=== PATIENT | female | born 1935 | race Caucasian/White ===

== ENCOUNTER → 2018-04-15 | Outpatient (CLI) | END | disposition home or self-care (01) ==

== ENCOUNTER 2019-03-09 19:36 | Emergency (ER) | payer MEDICARE, OTHER ==
[~2019-03-09] VITALS: Ht 157.5 cm; Wt 69.7 kg
[~2019-03-09 19:36] MED LIST: AMLO-147 PO; ASPI-817 PO; ATOR20TA38 PO; HYDR-3498 PO; HYDR25TA6 PO; VALS320T2 PO
[2019-03-09 19:44] VITALS: Ht 157.5 cm; Wt 69.7 kg
[2019-03-09] MEDS ORDERED: SOD CHLORIDE 0.9% 1,000 ML IV STA (20:05)
[2019-03-09] MEDS ORDERED: ACETAMINOPHEN 500 MG TAB PO STA (23:00)
[2019-03-09 23:17] VITALS: BP 148/80; PULSE 77; RESP 20
--- NOTE | 2019-03-10 01:27 | ERD ---
ER Documentation Chief Complaint Chief Complaint generalized weakness,urinating more than usual,shaky,leg cramps; hx DM2,HTN HPI 84-year-old female with a history of diabetes and hypertension presenting with cramping in her calves that started this morning. It is worse with ambulation. She feels weak from the cramping. Per her granddaughter at bedside, she does have a history of cramping in her legs but never this severe. She recently went to [place] for her 's where it was very hot and she thinks she may have not been drinking much fluid. She recently came back yesterday. She states that she is urinating normally. She has no other associated symptoms. She does not have any swelling in her extremities. When she is laying down, she has no pain. ROS All systems reviewed and are negative except as per history of present illness. Medications Home Meds Active Scripts Hydrocodone Bit-Acetaminophen* ([place]*) 5-325 Mg Tab, 1 TAB PO Q6 PRN for PAIN, #7 TAB Prov:AYAN MEZA PA-C 05/26/16 Atorvastatin Calcium* (Atorvastatin Calcium*) 20 Mg Tab, 20 MG PO HS, #30 Prov:CATIE CARRILLO MD 08/29/14 Aspirin* (Aspirin* EC) 81 Mg Tabec, 81 MG PO DAILY, #30 Prov:CATIE CARRILLO MD 08/29/14 Reported Medications Amlodipine Besylate* (Amlodipine Besylate*) 10 Mg Tablet, 10 MG PO DAILY, TAB 08/25/14 Valsartan* (Diovan*) 320 Mg Tablet, 320 MG PO DAILY, TAB 08/25/14 Hydrochlorothiazide* (Hydrochlorothiazide*) 25 Mg Tab, 25 MG PO DAILY, TAB 08/25/14 Allergies Allergies: Coded Allergies: No Known Allergy (Unverified , 08/25/14) PMhx/Soc History of Surgery: Yes (Rene Cataract removal) Anesthesia Reaction: No Hx Neurological Disorder: No Hx Respiratory Disorders: No Hx Cardiac Disorders: Yes (HTN) Hx Psychiatric Problems: No Hx Miscellaneous Medical Probl: No Hx Alcohol Use: No Hx Substance Use: No Hx Tobacco Use: Yes Smoking Status: Current some day smoker FmHx Family History: diabetes Physical Exam Vitals Vital Signs Date Temp Pulse Resp B/P (MAP) Pulse Ox O2 O2 Flow FiO2 Time Delivery Rate 03/09/19 98.3 77 20 148/80 99 Room Air 23:17 (102) 03/09/19 80 19 161/69 99 Room Air 20:21 (99) 03/09/19 97.3 90 18 204/86 95 19:44 (125) Physical Exam Const: No acute distress, well-appearing, nontoxic Head: Atraumatic Eyes: Normal Conjunctiva ENT: Normal External Ears, Nose and Mouth. Neck: Full range of motion. No meningismus. Resp: Clear to auscultation bilaterally Cardio: Regular rate and rhythm, no murmurs. 2+ distal pulses in all 4 extremities Abd: Soft, non tender, non distended. Normal bowel sounds Skin: No petechiae or rashes Back: No midline or flank tenderness Ext: No cyanosis, or edema. No calf tenderness or cords. Negative Homans sign Neur: Awake and alert, normal speech, no facial asymmetry, strength intact in all 4 extremities Psych: Normal Mood and Affect Result Diagram: 03/09/19201103/09/192011 Results 24 hrs Laboratory Tests Test 03/09/19 19:59 03/09/19 20:08 03/09/19 20:12 Urine Color YELLOW Urine Clarity SLIGHTLY CLOUDY Urine pH 6.0 Urine Specific [place] 1.010 Urine Ketones NEGATIVE mg/dL Urine Nitrite NEGATIVE mg/dL Urine Bilirubin NEGATIVE mg/dL Urine Urobilinogen NEGATIVE mg/dL Urine Leukocyte Esterase NEGATIVE Mauro/ul Urine Microscopic RBC 1 /HPF Urine Microscopic WBC 3 /HPF Urine Squamous Epithelial Cells FEW /HPF Urine Bacteria FEW /HPF Urine Hemoglobin NEGATIVE mg/dL Urine Glucose NEGATIVE mg/dL Urine Total Protein NEGATIVE mg/dl Bedside Glucose 158 mg/dL White Blood Count 10.2 10^3/ul Red Blood Count 4.61 10^6/ul Hemoglobin 12.7 g/dl Hematocrit 40.0 % Mean Corpuscular Volume 86.8 fl Mean Corpuscular Hemoglobin 27.5 pg Mean Corpuscular 31.8 g/dl Hemoglobin Concent Red Cell Distribution Width 14.6 % Platelet Count 385 10^3/UL Mean Platelet Volume 9.4 fl Immature Granulocytes % 0.700 % Neutrophils % 68.2 % Lymphocytes % 20.4 % Monocytes % 7.9 % Eosinophils % 2.2 % Basophils % 0.6 % Nucleated Red Blood Cells % 0.0 /100WBC Immature Granulocytes # 0.070 10^3/ul Neutrophils # 7.0 10^3/ul Lymphocytes # 2.1 10^3/ul Monocytes # 0.8 10^3/ul Eosinophils # 0.2 10^3/ul Basophils # 0.1 10^3/ul Nucleated Red Blood Cells # 0.0 10^3/ul Sodium Level 141 mmol/L Potassium Level 4.4 mmol/L Chloride Level 99 mmol/L Carbon Dioxide Level 29 mmol/L Anion Gap 13 Blood Urea Nitrogen 21 mg/dl Creatinine 1.20 mg/dl Est Glomerular Filtrat mL/min Rate mL/min Glucose Level 182 mg/dl Calcium Level 9.9 mg/dl Total Bilirubin 0.3 mg/dl Direct Bilirubin 0.00 mg/dl Indirect Bilirubin 0.3 mg/dl Aspartate Amino 49 IU/L Transf (AST/SGOT) Alanine 22 IU/L Aminotransferase (ALT/SGPT) Alkaline Phosphatase 102 IU/L Troponin I < 0.012 ng/ml Total Protein 9.7 g/dl Albumin 4.6 g/dl Globulin 5.10 g/dl Albumin/Globulin Ratio 0.90 Lipase 275 U/L Current Medications Medications Dose Sig/Viktoriya Start Time Status Last (Trade) Ordered Route PRN Stop Time Admin Dose Reason Admin Sodium 1,000 ml @ Q1H STAT 03/09/19 DC 03/09/19 Chloride 1,000 mls/hr IV 20:05 20:16 03/09/19 21:04 1,000 mg ONCE STAT 03/09/19 DC 03/09/19 Acetaminophen PO 23:00 23:15 (Tylenol 03/09/19 23:01 Tab) Procedures/MDM EMERGENT LABS AND DIAGNOSTIC STUDIES: Lab Results above were reviewed and interpreted by me. CBC: no anemia or evidence of infection BMP: Mild BUN and creatinine elevation, increased from previous, may be secondary to dehydration versus renal insufficiency. No evidence of clinically significant electrolyte abnormality, acidosis,hypoglycemia, UA: no evidence of infection EKG: Rate/Rhythm: Normal sinus rhythm at 85 bpm QRS, ST, T-waves: No changes consistent w/ acute ischemia Impression: No evidence of ischemia or arrhythmia Radiology Results as interpreted by Radiology below were reviewed by Avril Sen MD: Chest x-ray shows no acute abnormalities. Lung nodule noted, discussed with granddaughter Initial Nursing notes reviewed. Previous Medical Records requested via the Electronic Health Record. EMERGENCY DEPARTMENT COURSE / MEDICAL DECISION MAKING: Patient is presenting with muscle cramping in her legs that are intermittent. She has no neurovascular deficits on exam. I do not suspect ischemic limb or DVT. Patient was given IV hydration with improvement of her symptoms. She was noted to have diarrhea here, but the patient's family states that she was taking magnesium supplements today for cramping, which is likely the cause of her diarrhea. I recommended appropriate hydration at home for the muscle cramps. Follow-up with PCP was recommended if she is not improving and she was encouraged to return to the ER for any worsening symptoms. Patient's blood pressure was elevated (>120/80) but appears stable without evidence of hypertensive emergency or urgency. The patient was counseled about the risks of hypertension and urged to pursue outpatient monitoring and therapy within a week with their primary care physician. Departure Diagnosis: Primary Impression: Leg cramps Condition: Stable Patient Instructions: Muscle Spasm LADAN SEN MD March 10, 2019 01:27
== END 2019-03-09 23:18 | disposition home or self-care (01) ==
LOC: E/R 19:36
DX: M79.605 Pain in left leg (principal); M79.604 Pain in right leg; I10 Essential (primary) hypertension; F17.210 Nicotine dependence, cigarettes, uncomplicated
CPT/HCPCS: 71045; 80053; 81001; 82962; 83690; 84484; 85025; 93005; 99285; J7030; 81003

== ENCOUNTER 2019-03-14 15:47 | Inpatient (IN) | payer MEDICARE, OTHER ==
[~2019-03-14] VITALS: Ht 157.5 cm; Wt 72.0 kg
[2019-03-14] MEDS ORDERED: ONDANSETRON 4 MG INJ IV PRN (19:30)
[2019-03-14] MEDS ORDERED: ACETAMINOPHEN 325 MG TAB PO PRN (19:30)
[2019-03-14 21:26] VITALS: BP 193/82; PULSE 82; RESP 18
[2019-03-14 21:45] VITALS: PULSE 84
[2019-03-14] MEDS ORDERED: LEVOFLOXACIN 500MG/D5W (PMX) 100 ML IVPB SCH (22:00)
--- NOTE | 2019-03-14 22:03 | ERD ---
ER Documentation Chief Complaint Chief Complaint SENT BY PCP FOR EVALUATION FOR TACHYCARDIA HPI Patient is a 83-year-old female with hypertension and diabetes who presents for admission. The patient was sent by Dr. Carrillo for tachycardia. He would like the patient admitted. The patient had palpitations as well. It is been going on for the past few days. She denies chest pain. She has been feeling worse at night and has lots of sweating. She has no cough. Primary doctor is Dr. Carrillo. Upon review of old medical records the patient has multiple visits for various complaints. ROS All systems reviewed and are negative except as per history of present illness. Medications Home Meds Active Scripts Hydrocodone Bit-Acetaminophen* ([place]*) 5-325 Mg Tab, 1 TAB PO Q6 PRN for PAIN, #7 TAB Prov:AYAN MEZA PA-C 05/26/16 Atorvastatin Calcium* (Atorvastatin Calcium*) 20 Mg Tab, 20 MG PO HS, #30 Prov:CATIE CARRILLO MD 08/29/14 Aspirin* (Aspirin* EC) 81 Mg Tabec, 81 MG PO DAILY, #30 Prov:CATIE CARRILLO MD 08/29/14 Reported Medications Amlodipine Besylate* (Amlodipine Besylate*) 10 Mg Tablet, 10 MG PO DAILY, TAB 08/25/14 Valsartan* (Diovan*) 320 Mg Tablet, 320 MG PO DAILY, TAB 08/25/14 Hydrochlorothiazide* (Hydrochlorothiazide*) 25 Mg Tab, 25 MG PO DAILY, TAB 08/25/14 Allergies Allergies: Coded Allergies: No Known Allergy (Unverified , 08/25/14) PMhx/Soc History of Surgery: Yes (Rene Cataract removal) Anesthesia Reaction: No Hx Neurological Disorder: No Hx Respiratory Disorders: No Hx Cardiac Disorders: Yes (HTN) Hx Psychiatric Problems: No Hx Miscellaneous Medical Probl: No Hx Alcohol Use: No Hx Substance Use: No Hx Tobacco Use: Yes Smoking Status: Former smoker FmHx Family History: No coronary disease Physical Exam Vitals Vital Signs Date Temp Pulse Resp B/P (MAP) Pulse Ox O2 O2 Flow FiO2 Time Delivery Rate 03/14/19 98.3 100 18 137/66 95 16:19 (89) Physical Exam Const: No acute distress Head: Atraumatic Eyes: Normal Conjunctiva ENT: Normal External Ears, Nose and Mouth. Neck: Full range of motion. No meningismus. Resp: Clear to auscultation bilaterally Cardio: Regular rate and rhythm, no murmurs Abd: Soft, non tender, non distended. Normal bowel sounds Skin: No petechiae or rashes Back: No midline or flank tenderness Ext: No cyanosis, or edema Neur: Awake and alert Psych: Normal Mood and Affect Result Diagram: 03/14/19195203/14/191952 Results 24 hrs Current Medications Medications Dose Sig/Viktoriya Start Time Status Last (Trade) Ordered Route PRN Stop Time Admin Dose Reason Admin Ondansetron 4 mg ER BRIDGE 03/14/19 HCl (Zofran PRN IV 19:30 Inj) NAUSEA/VOMITI 03/15/19 19:29 NG 650 mg ER BRIDGE 03/14/19 Acetaminophen PRN PO 19:30 (Tylenol .MILD PAIN 03/15/19 19:29 Tab) 1-3 OR TEMP Procedures/MDM EKG read by me: Rate/Rhythm: Regular rate and rhythm at a normal rate Intervals: Normal Impression: No evidence of ischemia or arrhythmia Chest x-ray read by radiology. Patient is an 83-year-old female with hypertension and diabetes who presents with palpitations and tachycardia. The patient will be admitted to a telemetry observation bed to the care of Dr. Carrillo. Laboratory studies and EKG and chest x-ray were done. At this point I doubt pneumonia, pneumothorax, pulmonary embolism, or aortic dissection. Departure Diagnosis: Primary Impression: Tachycardia Condition: Serious AMENA LYNNE MD March 14, 2019 22:03
[2019-03-14] MEDS: SOD CHLORIDE 0.45% 1,000 ML IV SCH (22:30)
[2019-03-14] MEDS ORDERED: GLUCAGON 1 MG INJ IM PRN (23:30)
[2019-03-14] MEDS ORDERED: DEXTROSE 50% 50 ML SYRINGE IV PRN ×2 (23:30)
[2019-03-14] MEDS ORDERED: GLUCOSE GEL 15 GRAM TUBE PO PRN ×2 (23:30)
[2019-03-14] MEDS ORDERED: GLUCOSE GEL 15 GRAM TUBE BUCCAL PRN (23:30)
[2019-03-14 23:33] VITALS: BP 159/67; PULSE 80; RESP 17
[2019-03-15] VITALS (11 sets, daily range): BP systolic 136–166; BP diastolic 64–71; PULSE 74–90; RESP 17–20
[2019-03-15] MEDS: ACCU-CHEK XX SCH ×4 (07:05→21:00)
[2019-03-15] MEDS: INSULIN ASPART [NOVOLOG] 3 ML PEN SC SCH ×2 (07:18→17:48)
[2019-03-15] MEDS: LOSARTAN 50 MG TAB PO SCH (08:41)
[2019-03-15] MEDS: ASPIRIN (EC) 81 MG TAB PO SCH (08:41)
[2019-03-15] MEDS: HYDROCHLOROTHIAZIDE 25 MG TAB PO SCH (08:42)
[2019-03-15] MEDS: AMLODIPINE 10 MG TAB PO SCH (08:43)
[2019-03-15] MEDS ORDERED: ENOXAPARIN 40 MG/0.4 ML SYG SC SCH (09:00)
[2019-03-15] MEDS: SOD CHLORIDE 0.45% 1,000 ML IV SCH (14:40)
--- NOTE | 2019-03-15 18:23 | HP ---
Date/Time of Note Date/Time of Note DATE: 03/15/19 TIME: 17:48 Assessment/Plan VTE Prophylaxis Risk [place] [facility] [place] risk: 5 SCD applied (from [facility] [place] No SCD contraindicated: other Pharmacological prophylaxis: other Pharm contraindication: other Lines/Catheters [facility]ter [facility] (from [facility]): Peripheral IV Urinary Cath still in place: No Assessment/Plan Assessment/Plan -Tachycardia- no chest pain at present -Palpitations, assess for cardiac arrhythmia. none at resent - admit to tele unit - cardiology consult- dr Jensen notified -admission orders done - Anemia - monitor CBC - Acute renal insufficiency - Nephrology consult - Dr Bri Alcocer notified -Former smoker - Reinforce smoking cessation - Hypertension - Dyslipidemia - Diabetes - uncontrolled - Hgb AIC am - Glycemic control - 1800 KIMBERLY, low Na, low cholesterol diet - Dietary consult - hospital educator consult -Lovenox for DVT Prophylaxis Patient is seen in collaboration with dr Carrillo/ [facility] staff Result Diagram: 03/15/19 0508 03/15/19 0508 Results 24hrs Laboratory Tests Test 03/14/19 19:53 03/15/19 01:13 03/15/19 05:08 03/15/19 07:03 White Blood Count 10.7 7.4 # Red Blood Count 4.48 4.28 Hemoglobin 12.3 11.8 L Hematocrit 39.4 37.3 Mean Corpuscular 87.9 87.1 Volume Mean Corpuscular 27.5 L 27.6 L Hemoglobin Mean Corpuscular 31.2 L 31.6 L Hemoglobin Concent Red Cell 14.6 H 14.5 Distribution Width Platelet Count 324 294 Mean Platelet Volume 9.6 9.7 Immature 0.400 0.300 Granulocytes % Neutrophils % 72.2 62.0 Lymphocytes % 18.3 26.5 Monocytes % 7.7 8.6 Eosinophils % 0.8 1.8 Basophils % 0.6 0.8 Nucleated Red Blood 0.0 0.0 Cells % Immature 0.040 H 0.020 Granulocytes # Neutrophils # 7.7 H 4.6 Lymphocytes # 2.0 2.0 Monocytes # 0.8 0.6 Eosinophils # 0.1 0.1 Basophils # 0.1 0.1 Nucleated Red Blood 0.0 0.0 Cells # Sodium Level 138 139 Potassium Level 5.1 4.6 Chloride Level 99 101 Carbon Dioxide Level 27 28 Anion Gap 12 10 Blood Urea Nitrogen 25 H 22 H Creatinine 1.21 H 1.21 H Est Glomerular Filtrat Rate mL/min Glucose Level 265 H 227 H Calcium Level 9.1 8.9 Magnesium Level 2.1 Troponin I < 0.012 < 0.012 < 0.012 Thyroid Stimulating 6.420 H Hormone (TSH) Free Thyroxine 1.46 Creatine Kinase 57 Creatine Kinase 1.4 Index Creatinine Kinase MB 0.81 (Mass) Bedside Glucose 234 H Test 03/15/19 07:29 03/15/19 11:57 03/15/19 17:40 Creatine Kinase 48 Creatine Kinase 1.5 Index Creatinine Kinase MB 0.73 (Mass) Troponin I < 0.012 Bedside Glucose 210 291 H HPI/ROS Admit Date/Time Admit Date/Time March 14, 2019 at 19:31 Hx of Present Illness HPI Patient is a 83-year-old female with hypertension and diabetes, smoker, was sent by Dr. Carrillo for tachycardia. Patient has c/o of palpitations as well. It is been going on for the past few days. Patient is seen on tele unit. In ER: - VS-temperature was 98.3, blood pressure 137/66, pulse 100, respiratory rate 18, sat 95%. - CBC- white count of 10.7, hemoglobin of 12.3 and platelet count of 324. - CHEM- Sodium of 138, potassium 5.1, creatinine 0.21, BUN 25, glucose 265. -Troponin was negative. 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 She denies chest pain/palpitations/ shortness of breath/headache/ cough/ abdominal pain /NVD. Denies any fall /injury/ recent travel/contact with any sick. Denies any right/lrft calf pain. Denies focal weakness/numbness. Patient is admitted under Dr Carrillo for further treatment and evaluation. ROS All systems reviewed and are negative except as per history of present illness. Medications Home Meds Active Scripts Hydrocodone Bit-Acetaminophen* ([place]*) 5-325 Mg Tab, 1 TAB PO Q6 PRN for PAIN, #7 TAB Prov:AYAN MEZA PA-C 05/26/16 Atorvastatin Calcium* (Atorvastatin Calcium*) 20 Mg Tab, 20 MG PO HS, #30 Prov:CATIE CARRILLO MD 08/29/14 Aspirin* (Aspirin* EC) 81 Mg Tabec, 81 MG PO DAILY, #30 Prov:CATIE CARRILLO MD 08/29/14 Reported Medications Amlodipine Besylate* (Amlodipine Besylate*) 10 Mg Tablet, 10 MG PO DAILY, TAB 08/25/14 Valsartan* (Diovan*) 320 Mg Tablet, 320 MG PO DAILY, TAB 08/25/14 Hydrochlorothiazide* (Hydrochlorothiazide*) 25 Mg Tab, 25 MG PO DAILY, TAB 08/25/14 Allergies Allergies: Coded Allergies: No Known Allergy (Unverified , 08/25/14) PMhx/Soc History of Surgery: Yes (Rene Cataract removal) Anesthesia Reaction: No Hx Neurological Disorder: No Hx Respiratory Disorders: No Hx Cardiac Disorders: Yes (HTN) Hx Psychiatric Problems: No Hx Miscellaneous Medical Probl: No Hx Alcohol Use: No Hx Substance Use: No Hx Tobacco Use: Yes Smoking Status: Former smoker FmHx Family History: No coronary disease ROS ENT: no complaints Respiratory: no complaints Cardiovascular: no complaints Gastrointestinal: no complaints Genitourinary: no complaints Musculoskeletal: no complaints PMH/Family/Social Past Medical History Medical History: diabetes, hypertension Medications Current Medications Amlodipine Besylate (Norvasc) 10 mg DAILY PO Last administered on 03/15/19at 08:43; Admin Dose 10 MG; Start 03/15/19 at 09:00 Aspirin (Halfprin) 81 mg DAILY PO Last administered on 03/15/19at 08:41; Admin Dose 81 MG; Start 03/15/19 at 09:00 Atorvastatin Calcium (Lipitor) 20 mg HS PO ; Start 03/15/19 at 21:00 Hydrochlorothiazide (Hydrochlorothiazide) 25 mg DAILY PO Last administered on 03/15/19at 08:42; Admin Dose 25 MG; Start 03/15/19 at 09:00 Losartan Potassium (Cozaar) 100 mg DAILY PO Last administered on 03/15/19at 08:41; Admin Dose 100 MG; Start 03/15/19 at 09:00 Sodium Chloride 1,000 ml @ 60 mls/hr [id number] IV Last administered on 03/14/19at 22:30; Admin Dose 60 MLS/HR; Start 03/14/19 at 22:00 Diagnostic Test (Pha) (Accu-Chek) 1 ea AC MEALS AND BEDTIME XX Last administered on 03/15/19at 07:05; Admin Dose 1 EA; Start 03/15/19 at 07:00 Insulin Aspart (Novolog Insulin Pen) 20 unit AC DINNER SC ; Start 03/15/19 at 17:30 Insulin Aspart (Novolog Insulin Pen) 24 unit AC BREAKFAST SC Last administered on 03/15/19at 07:18; Admin Dose 24 UNIT; Start 03/15/19 at 07:00 Insulin Glargine (Lantus) 58 units DAILY@2000 SC ; Start 03/15/19 at 20:00 Acetaminophen (Tylenol Tab) 650 mg Q4H PRN PO MILD PAIN(1-3)OR ELEVATED TEMP; Start 03/14/19 at 22:30 Miscellaneous Information 1 ea NOTE XX ; Start 03/14/19 at 23:30 Glucose (Glutose) 15 gm Q15M PRN PO DECREASED GLUCOSE; Start 03/14/19 at 23:30 Glucose (Glutose) 22.5 gm Q15M PRN PO DECREASED GLUCOSE; Start 03/14/19 at 23:30 Dextrose (D50w Syringe) 25 ml Q15M PRN IV DECREASED GLUCOSE; Start 03/14/19 at 23:30 Dextrose (D50w Syringe) 50 ml Q15M PRN IV DECREASED GLUCOSE; Start 03/14/19 at 23:30 Glucagon (Glucagen) 1 mg Q15M PRN IM DECREASED GLUCOSE; Start 03/14/19 at 23:30 Glucose (Glutose) 15 gm Q15M PRN BUCCAL DECREASED GLUCOSE; Start 03/14/19 at 23:30 Enoxaparin Sodium (Lovenox) 30 mg DAILY SC ; Start 03/16/19 at 09:00 Metoprolol Tartrate (Lopressor) 25 mg BID PO ; Start 03/15/19 at 21:00 Coded Allergies: No Known Allergy (Unverified , 08/25/14) Past Surgical History Past Surgical Hx: no surgical history Family History Significant Family History: no pertinent family hx, other Social History Alcohol Use: none Smoking Status: Former smoker Drug Use: none Exam/Review of Systems Vital Signs Vitals Vital Signs Date Temp Pulse Resp B/P (MAP) Pulse Ox O2 O2 Flow FiO2 Time Delivery Rate 03/15/19 81 16:53 03/15/19 98.3 20 151/67 94 15:43 (95) 03/14/19 Room Air 21:09 Intake and Output 03/14/19 03/14/19 03/15/19 1515:00 23:00 07:00 IntakeIntake Total 980 ml BalanceBalance 980 ml Exam Constitutional: alert, well developed Psych: nl mood/affect Head: atraumatic Eyes: nl lids ENMT: nl external ears & nose Neck: non-tender Respiratory: clear to auscultation Cardiovascular: nl pulses, other (S1S2) Gastrointestinal: soft, non-tender Musculoskeletal: muscle weakness Extremities: normal pulses Neurological: nl speech, other (alert/responsive) Skin: nl turgor Lymph: nontender LEILANI RODRIGEZ March 15, 2019 17:58
--- NOTE | 2019-03-15 18:51 | CONS ---
Assessment/Plan Assessment/Plan Assessment/Plan (Daily) 1. Acute kidney injury 2/2 Prerenal azotemia 2. Chest pain with palpitations 3. H/o HTN 4. H/O HL 5. H/o DM II 6. H/o CAD Plan: admission to telemetry floor observation IVF 1/2 NS at 60 cc/hr pt has JUANITA, no need for CKD work up at this time Cardiology has been consulted on the case Thanks for consultation< I will continue to follow up Consultation Date/Type/Reason Admit Date/Time March 14, 2019 at 19:31 Date of Consultation: March 15, 2019 Type of Consult NEPHROLOGY Reason for Consultation Acute kidney injury Requesting Provider: CATIE RMOERO MD Date/Time of Note DATE: 03/15/19 TIME: 18:50 Hx of Present Illness 83-year-old female with hypertension and diabetes who presents for admission. The patient was sent by Dr. Romero for tachycardia. he gets admitted for work up for chest pain and palpitations. BUN/Cr 25/1.21 on admission. Renal has been consulted for acute kidney injury. Constitutional: no complaints Eyes: no complaints ENT: no complaints Respiratory: no complaints Cardiovascular: chest pain, palpitations Gastrointestinal: no complaints Genitourinary: no complaints Musculoskeletal: no complaints Skin: no complaints Neurologic: no complaints Endocrine: no complaints Lymphatic: no complaints Psychological: no complaints Immunologic: no complaints Past Medical History Medical History: high cholesterol, hypertension Home Meds Active Scripts Hydrocodone Bit-Acetaminophen* ([place]*) 5-325 Mg Tab, 1 TAB PO Q6 PRN for PAIN, #7 TAB Prov:AYAN MEZA PA-C 05/26/16 Atorvastatin Calcium* (Atorvastatin Calcium*) 20 Mg Tab, 20 MG PO HS, #30 Prov:CATIE ROMERO MD 08/29/14 Aspirin* (Aspirin* EC) 81 Mg Tabec, 81 MG PO DAILY, #30 Prov:CATIE ROMERO MD 08/29/14 Reported Medications Amlodipine Besylate* (Amlodipine Besylate*) 10 Mg Tablet, 10 MG PO DAILY, TAB 08/25/14 Valsartan* (Diovan*) 320 Mg Tablet, 320 MG PO DAILY, TAB 08/25/14 Hydrochlorothiazide* (Hydrochlorothiazide*) 25 Mg Tab, 25 MG PO DAILY, TAB 08/25/14 Medications Current Medications Amlodipine Besylate (Norvasc) 10 mg DAILY PO Last administered on 03/15/19 08:43; Admin Dose 10 MG; Start 03/15/19 at 09:00 Aspirin (Halfprin) 81 mg DAILY PO Last administered on 03/15/19 08:41; Admin Dose 81 MG; Start 03/15/19 at 09:00 Atorvastatin Calcium (Lipitor) 20 mg HS PO ; Start 03/15/19 at 21:00 Hydrochlorothiazide (Hydrochlorothiazide) 25 mg DAILY PO Last administered on 03/15/19 08:42; Admin Dose 25 MG; Start 03/15/19 at 09:00 Losartan Potassium (Cozaar) 100 mg DAILY PO Last administered on 03/15/19 08:41; Admin Dose 100 MG; Start 03/15/19 at 09:00 Sodium Chloride 1,000 ml @ 60 mls/hr [id number] IV Last administered on 03/14/19 22:30; Admin Dose 60 MLS/HR; Start 03/14/19 at 22:00 Diagnostic Test (Pha) (Accu-Chek) 1 ea AC MEALS AND BEDTIME XX Last administered on 03/15/19 17:48; Admin Dose 1 EA; Start 03/15/19 at 07:00 Insulin Aspart (Novolog Insulin Pen) 20 unit AC DINNER SC Last administered on 03/15/19 17:48; Admin Dose 20 UNIT; Start 03/15/19 at 17:30 Insulin Aspart (Novolog Insulin Pen) 24 unit AC BREAKFAST SC Last administered on 03/15/19 07:18; Admin Dose 24 UNIT; Start 03/15/19 at 07:00 Insulin Glargine (Lantus) 58 units DAILY@2000 SC ; Start 03/15/19 at 20:00 Acetaminophen (Tylenol Tab) 650 mg Q4H PRN PO MILD PAIN(1-3)OR ELEVATED TEMP; Start 03/14/19 at 22:30 Miscellaneous Information 1 ea NOTE XX ; Start 03/14/19 at 23:30 Glucose (Glutose) 15 gm Q15M PRN PO DECREASED GLUCOSE; Start 03/14/19 at 23:30 Glucose (Glutose) 22.5 gm Q15M PRN PO DECREASED GLUCOSE; Start 03/14/19 at 23:30 Dextrose (D50w Syringe) 25 ml Q15M PRN IV DECREASED GLUCOSE; Start 03/14/19 at 23:30 Dextrose (D50w Syringe) 50 ml Q15M PRN IV DECREASED GLUCOSE; Start 03/14/19 at 23:30 Glucagon (Glucagen) 1 mg Q15M PRN IM DECREASED GLUCOSE; Start 03/14/19 at 23:30 Glucose (Glutose) 15 gm Q15M PRN BUCCAL DECREASED GLUCOSE; Start 03/14/19 at 23:30 Enoxaparin Sodium (Lovenox) 30 mg DAILY SC ; Start 03/16/19 at 09:00 Metoprolol Tartrate (Lopressor) 25 mg BID PO ; Start 03/15/19 at 21:00 Allergies: Coded Allergies: No Known Allergy (Unverified , 08/25/14) Past Surgical History Past Surgical Hx: no surgical history Family History Significant Family History: no pertinent family hx Social History Alcohol Use: none Smoking Status: Heavy tobacco smoker Drug Use: none Exam/Review of Systems Exam Vitals Vital Signs Date Temp Pulse Resp B/P (MAP) Pulse Ox O2 O2 Flow FiO2 Time Delivery Rate 03/15/19 81 16:53 03/15/19 98.3 20 151/67 94 15:43 (95) 03/14/19 Room Air 21:09 Intake and Output 03/14/19 03/14/19 03/15/19 1515:00 23:00 07:00 IntakeIntake Total 980 ml BalanceBalance 980 ml Constitutional: alert Psych: no complaints Head: normocephalic Eyes: nl conjunctiva ENMT: nl external ears & nose Neck: supple, non-tender Respiratory: clear to auscultation, normal air movement Cardiovascular: regular rate and rhythm, nl pulses Gastrointestinal: soft, non-tender Musculoskeletal: nl extremities to inspection Extremities: normal pulses Neurological: [employer] II-XII intact Skin: nl turgor Lymph: nl lymph nodes Results Result Diagram: 03/15/19 0508 03/15/19 0508 Results 24hrs Laboratory Tests Test 03/14/19 19:53 03/15/19 01:13 03/15/19 05:05 03/15/19 05:08 White Blood Count 10.7 7.4 # Red Blood Count 4.48 4.28 Hemoglobin 12.3 11.8 L Hematocrit 39.4 37.3 Mean Corpuscular 87.9 87.1 Volume Mean Corpuscular 27.5 L 27.6 L Hemoglobin Mean Corpuscular 31.2 L 31.6 L Hemoglobin Concent Red Cell 14.6 H 14.5 Distribution Width Platelet Count 324 294 Mean Platelet Volume 9.6 9.7 Immature 0.400 0.300 Granulocytes % Neutrophils % 72.2 62.0 Lymphocytes % 18.3 26.5 Monocytes % 7.7 8.6 Eosinophils % 0.8 1.8 Basophils % 0.6 0.8 Nucleated Red Blood 0.0 0.0 Cells % Immature 0.040 H 0.020 Granulocytes # Neutrophils # 7.7 H 4.6 Lymphocytes # 2.0 2.0 Monocytes # 0.8 0.6 Eosinophils # 0.1 0.1 Basophils # 0.1 0.1 Nucleated Red Blood 0.0 0.0 Cells # Sodium Level 138 139 Potassium Level 5.1 4.6 Chloride Level 99 101 Carbon Dioxide Level 27 28 Anion Gap 12 10 Blood Urea Nitrogen 25 H 22 H Creatinine 1.21 H 1.21 H Est Glomerular Filtrat Rate mL/min Glucose Level 265 H 227 H Calcium Level 9.1 8.9 Magnesium Level 2.1 Troponin I < 0.012 < 0.012 < 0.012 Thyroid Stimulating 6.420 H Pending Hormone (TSH) Free Thyroxine 1.46 Creatine Kinase 57 Creatine Kinase 1.4 Index Creatinine Kinase MB 0.81 (Mass) Triglycerides Level 214 H Cholesterol Level 141 LDL Cholesterol, 65 Calculated HDL Cholesterol 33 Cholesterol/HDL 4.2 Ratio Test 03/15/19 07:03 03/15/19 07:29 03/15/19 11:57 03/15/19 17:40 Bedside Glucose 234 H 210 291 H Creatine Kinase 48 Creatine Kinase 1.5 Index Creatinine Kinase MB 0.73 (Mass) Troponin I < 0.012 Medications Medication Current Medications Amlodipine Besylate (Norvasc) 10 mg DAILY PO Last administered on 03/15/19at 08:43; Admin Dose 10 MG; Start 03/15/19 at 09:00 Aspirin (Halfprin) 81 mg DAILY PO Last administered on 03/15/19at 08:41; Admin Dose 81 MG; Start 03/15/19 at 09:00 Atorvastatin Calcium (Lipitor) 20 mg HS PO ; Start 03/15/19 at 21:00 Hydrochlorothiazide (Hydrochlorothiazide) 25 mg DAILY PO Last administered on 03/15/19 08:42; Admin Dose 25 MG; Start 03/15/19 at 09:00 Losartan Potassium (Cozaar) 100 mg DAILY PO Last administered on 03/15/19 08:41; Admin Dose 100 MG; Start 03/15/19 at 09:00 Sodium Chloride 1,000 ml @ 60 mls/hr [id number] IV Last administered on 03/14/19at 22:30; Admin Dose 60 MLS/HR; Start 03/14/19 at 22:00 Diagnostic Test (Pha) (Accu-Chek) 1 ea AC MEALS AND BEDTIME XX Last administered on 03/15/19 17:48; Admin Dose 1 EA; Start 03/15/19 at 07:00 Insulin Aspart (Novolog Insulin Pen) 20 unit AC DINNER SC Last administered on 03/15/19 17:48; Admin Dose 20 UNIT; Start 03/15/19 at 17:30 Insulin Aspart (Novolog Insulin Pen) 24 unit AC BREAKFAST SC Last administered on 03/15/19 07:18; Admin Dose 24 UNIT; Start 03/15/19 at 07:00 Insulin Glargine (Lantus) 58 units DAILY@2000 SC ; Start 03/15/19 at 20:00 Acetaminophen (Tylenol Tab) 650 mg Q4H PRN PO MILD PAIN(1-3)OR ELEVATED TEMP; Start 03/14/19 at 22:30 Miscellaneous Information 1 ea NOTE XX ; Start 03/14/19 at 23:30 Glucose (Glutose) 15 gm Q15M PRN PO DECREASED GLUCOSE; Start 03/14/19 at 23:30 Glucose (Glutose) 22.5 gm Q15M PRN PO DECREASED GLUCOSE; Start 03/14/19 at 23:30 Dextrose (D50w Syringe) 25 ml Q15M PRN IV DECREASED GLUCOSE; Start 03/14/19 at 23:30 Dextrose (D50w Syringe) 50 ml Q15M PRN IV DECREASED GLUCOSE; Start 03/14/19 at 23:30 Glucagon (Glucagen) 1 mg Q15M PRN IM DECREASED GLUCOSE; Start 03/14/19 at 23:30 Glucose (Glutose) 15 gm Q15M PRN BUCCAL DECREASED GLUCOSE; Start 5/24/19 at 23:30 Enoxaparin Sodium (Lovenox) 30 mg DAILY SC ; Start 03/16/19 at 09:00 Metoprolol Tartrate (Lopressor) 25 mg BID PO ; Start 03/15/19 at 21:00 ELKIN MEDRANO MD March 15, 2019 18:51
[2019-03-15] MEDS: METOPROLOL 25 MG TAB PO SCH (20:34)
[2019-03-15] MEDS: ATORVASTATIN 20 MG TAB PO SCH (20:34)
[2019-03-15] MEDS: INSULIN GLARGINE [LANTus] (100 UNITS/ML) SYG SC SCH (20:39)
--- NOTE | 2019-03-15 23:15 | CONS ---
DATE OF ADMISSION: 03/14/2019 DATE OF CONSULTATION: 03/15/2019 REASON FOR CONSULTATION: Tachycardia and palpitations REQUESTING PHYSICIAN: Catie Romero MD HISTORY OF PRESENT ILLNESS: Ms. Vigil is an 83-year-old female with history of hypertension and diabetes mellitus who was sent by her primary care physician for complaints of palpitations, worse at night, associated diaphoresis and an EKG that had revealed tachycardia per patient. Upon arrival to the emergency department, temperature was 98.3, blood pressure 137/66, pulse 100, respiratory rate 18, sat 95%. The patient's labs were notable for white count of 10.7, hemoglobin of 12.3 and platelet count of 324. Sodium of 138, potassium 5.1, creatinine 0.21, BUN 25, glucose 265. Troponin was negative. TSH was mildly elevated at 6.42 with normal free T4. 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 The patient's electrocardiogram with normal sinus rhythm, rate 84, normal axis, normal intervals, with lateral T-wave inversion. The patient had been admitted to the floor and since admit to floor, she was monitored on telemetry revealing sinus rhythm, no significant arrhythmias, tachycardia. The patient denies chest pain or ongoing palpitations at this time right now. The patient has had some lability of her blood pressure as high as 190 and most recently has been 151. PAST MEDICAL HISTORY: As above in HPI. MEDICATIONS CURRENTLY IN HOSPITAL: 1. Lovenox subcutaneously daily. 2. Lipitor 20 mg at bedtime. 3. Lantus. 4. Norvasc 10 mg daily. 5. Aspirin 81 mg a day. 6. Hydrochlorothiazide 25 mg a day. 7. Losartan 100 mg daily. 8. Insulin sliding scale. 9. IV fluid hydration at 60 mL an hour. 10. Zofran p.r.n. 11. Tylenol p.r.n. ALLERGIES: NO KNOWN DRUG ALLERGIES. SOCIAL HISTORY: No current tobacco, ETOH or illicit drug use, but positive history of tobacco intake. FAMILY HISTORY: No history of sudden cardiac or early CAD. REVIEW OF SYSTEMS: As above in HPI. CONSTITUTIONAL: No fevers or chills. PULMONARY: No current shortness of breath. CARDIOVASCULAR: Palpitations. GASTROINTESTINAL: No vomiting. GENITOURINARY: No hematuria. MUSCULOSKELETAL: Degenerative joint disease. PSYCHIATRIC: The patient denies depression. NEUROLOGIC: No history of CVA. PHYSICAL EXAMINATION: VITAL SIGNS: Temperature 98.3, blood pressure 141/67, pulse 81, respiratory rate 20, sat 94%. GENERAL: The patient is alert, awake, in no acute distress. NECK: JVP approximately 8 cm water. CHEST: Fair air movement throughout. HEART: Regular rate and rhythm. Normal S1, S2, I/ systolic murmur, nondisplaced PMI. ABDOMEN: Flat, positive bowel sounds, soft. EXTREMITIES: No significant pitting edema, 1+ pulses bilateral posterior tibial. LABORATORY DATA: As above in HPI with additionally from today, sodium 139, potassium 4.6, creatinine 0.21, BUN 22. Troponin negative x3. White blood cell count 7.4, hemoglobin 11.8, platelet count of 294. IMAGING STUDIES: As above in HPI. No further imaging studies for my review at this time. ECG: As above in HPI. No further electrocardiograms for my review at this time. IMPRESSION: 1. Palpitations, assess for true cardiac arrhythmia. At this time, currently improved. 2. Report of tachycardia and on admission, sinus tachycardia. 3. Hypertension, labile. 4. Diabetes mellitus. 5. Dyslipidemia. 6. Anemia, mild. 7. Renal failure. RECOMMENDATIONS: 1. At this time, would maintain the patient on telemetry monitoring to continue to follow rhythm and rate closely and assess for any possible true arrhythmic cause of the patient's palpitations. 2. We will initiate the patient on a low-dose beta ronal to improve overall blood pressure control and suppress recurrent bouts of palpitations. 3. Continue the patient otherwise on baseline losartan, hydrochlorothiazide and Norvasc, all with renal doses for control of blood pressure 4. Continue the patient's current statin and adjust it according to a fasting lipid panel checked. 5. Continue to follow the patient's blood sugars closely. 6. Check a 2D echo to further assess the patient's ejection fraction, wall motion, and major valve abnormalities. Thank you for allowing me to take part in the care of this patient. I will continue to follow very closely with you with further recommendations to be made as the patient progresses through her inpatient hospital clinical course. Dictated By: JA NOLEN/NITO Conf#: [id number] DID#: [id number] CC: CATIE ROMERO MD;*EndCC* MTDD
[2019-03-16] VITALS (12 sets, daily range): BP systolic 126–155; BP diastolic 58–72; PULSE 62–93; RESP 17–20
[2019-03-16] MEDS: ACCU-CHEK XX SCH ×4 (07:00→21:00)
[2019-03-16] MEDS: SOD CHLORIDE 0.45% 1,000 ML IV SCH ×2 (07:20→16:28)
--- NOTE | 2019-03-16 07:52 | PN ---
Date/Time of Note Date/Time of Note DATE: 03/16/19 TIME: 07:49 Assessment/Plan VTE Prophylaxis Risk score (from [facility] [place])>0 risk: 5 SCD applied (from [facility] [place]): No SCD contraindicated: other Pharmacological prophylaxis: other Pharm contraindication: other Lines/Catheters IV Catheter Type (from [facility] Peripheral IV Urinary Cath still in place: No Assessment/Plan Assessment/Plan -Tachycardia - cardiology consult- dr Jensen notified - tele monitoring -Former smoker - reinforce smoking cessation - Acute Kidney Injury - nephro follows - Hypertension - Dyslipidemia - Diabetes - uncontrolled - Glycemic control Patient seen on collaboration with Dr Gallardo Result Diagram: 03/16/19 0533 03/16/19 0533 Results 24hrs Laboratory Tests Test 03/15/19 11:57 03/15/19 17:40 03/15/19 20:27 03/16/19 05:33 Bedside Glucose 210 291 H 205 White Blood Count 7.6 Red Blood Count 4.26 Hemoglobin 11.6 L Hematocrit 37.0 Mean Corpuscular 86.9 Volume Mean Corpuscular 27.2 L Hemoglobin Mean Corpuscular 31.4 L Hemoglobin Concent Red Cell 14.2 Distribution Width Platelet Count 302 Mean Platelet Volume 9.6 Immature 0.500 H Granulocytes % Neutrophils % 58.8 Lymphocytes % 28.5 Monocytes % 7.7 Eosinophils % 3.5 Basophils % 1.0 Nucleated Red Blood 0.0 Cells % Immature 0.040 H Granulocytes # Neutrophils # 4.5 Lymphocytes # 2.2 Monocytes # 0.6 Eosinophils # 0.3 Basophils # 0.1 Nucleated Red Blood 0.0 Cells # Sodium Level 138 Potassium Level 4.2 Chloride Level 102 Carbon Dioxide Level 26 Anion Gap 10 Blood Urea Nitrogen 22 H Creatinine 1.15 H Est Glomerular Filtrat Rate mL/min Glucose Level 229 H Calcium Level 8.9 Subjective 24 Hr Interval Summary Free Text/Dictation nad; seems comfortable; denies any chest pain/shortness of breath -sleeping easily awakens when called by name afebrile no events reported last night Eyes: no complaints ENT: no complaints Respiratory: no complaints Cardiovascular: no complaints Gastrointestinal: no complaints Genitourinary: no complaints Musculoskeletal: no complaints Skin: no complaints Neurologic: no complaints Endocrine: no complaints Lymphatic: no complaints Psychological: nl mood/affect Immunologic: no complaints Exam/Review of Systems Exam Vitals Vital Signs Date Temp Pulse Resp B/P (MAP) Pulse Ox O2 O2 Flow FiO2 Time Delivery Rate 03/16/19 98.5 63 20 155/69 93 07:22 (97) 03/14/19 Room Air 21:09 Intake and Output 03/15/19 03/15/19 03/16/19 1515:00 23:00 07:00 IntakeIntake Total 950 ml 500 ml BalanceBalance 950 ml 500 ml Constitutional: alert, well developed Psych: nl mood/affect Head: normocephalic Eyes: nl lids, nl sclera ENMT: nl external ears & nose Neck: non-tender Respiratory: clear to auscultation Cardiovascular: nl pulses, other (s1s2) Gastrointestinal: soft, non-tender Musculoskeletal: nl extremities to inspection Extremities: normal pulses Neurological: nl speech, other (alert/ responsive) Results Results 24hrs Laboratory Tests Test 03/15/19 11:57 03/15/19 17:40 03/15/19 20:27 03/16/19 05:33 Bedside Glucose 210 291 H 205 White Blood Count 7.6 Red Blood Count 4.26 Hemoglobin 11.6 L Hematocrit 37.0 Mean Corpuscular 86.9 Volume Mean Corpuscular 27.2 L Hemoglobin Mean Corpuscular 31.4 L Hemoglobin Concent Red Cell 14.2 Distribution Width Platelet Count 302 Mean Platelet Volume 9.6 Immature 0.500 H Granulocytes % Neutrophils % 58.8 Lymphocytes % 28.5 Monocytes % 7.7 Eosinophils % 3.5 Basophils % 1.0 Nucleated Red Blood 0.0 Cells % Immature 0.040 H Granulocytes # Neutrophils # 4.5 Lymphocytes # 2.2 Monocytes # 0.6 Eosinophils # 0.3 Basophils # 0.1 Nucleated Red Blood 0.0 Cells # Sodium Level 138 Potassium Level 4.2 Chloride Level 102 Carbon Dioxide Level 26 Anion Gap 10 Blood Urea Nitrogen 22 H Creatinine 1.15 H Est Glomerular Filtrat Rate mL/min Glucose Level 229 H Calcium Level 8.9 Medications Medication Current Medications Amlodipine Besylate (Norvasc) 10 mg DAILY PO Last administered on 03/15/19at 08:43; Admin Dose 10 MG; Start 03/15/19 at 09:00 Aspirin (Halfprin) 81 mg DAILY PO Last administered on 03/15/19at 08:41; Admin Dose 81 MG; Start 03/15/19 at 09:00 Atorvastatin Calcium (Lipitor) 20 mg HS PO Last administered on 03/15/19 20:34; Admin Dose 20 MG; Start 03/15/19 at 21:00 Hydrochlorothiazide (Hydrochlorothiazide) 25 mg DAILY PO Last administered on 03/15/19 08:42; Admin Dose 25 MG; Start 03/15/19 at 09:00 Losartan Potassium (Cozaar) 100 mg DAILY PO Last administered on 03/15/19 08:41; Admin Dose 100 MG; Start 03/15/19 at 09:00 Sodium Chloride 1,000 ml @ 60 mls/hr [id number] Last administered on 03/14/19 22:30; Admin Dose 60 MLS/HR; Start 03/14/19 at 22:00 Diagnostic Test (Pha) (Accu-Chek) 1 ea AC MEALS AND BEDTIME XX Last administered on 03/15/19 21:00; Admin Dose 1 EA; Start 03/15/19 at 07:00 Insulin Aspart (Novolog Insulin Pen) 20 unit AC DINNER SC Last administered on 03/15/19 17:48; Admin Dose 20 UNIT; Start 03/15/19 at 17:30 Insulin Aspart (Novolog Insulin Pen) 24 unit AC BREAKFAST SC Last administered on 03/15/19 07:18; Admin Dose 24 UNIT; Start 03/15/19 at 07:00 Insulin Glargine (Lantus) 58 units DAILY@2000 SC Last administered on 03/15/19 20:39; Admin Dose 58 UNITS; Start 03/15/19 at 20:00 Acetaminophen (Tylenol Tab) 650 mg Q4H PRN PO MILD PAIN(1-3)OR ELEVATED TEMP; Start 03/14/19 at 22:30 Miscellaneous Information 1 ea NOTE XX ; Start 03/14/19 at 23:30 Glucose (Glutose) 15 gm Q15M PRN PO DECREASED GLUCOSE; Start 03/14/19 at 23:30 Glucose (Glutose) 22.5 gm Q15M PRN PO DECREASED GLUCOSE; Start 03/14/19 at 23:30 Dextrose (D50w Syringe) 25 ml Q15M PRN IV DECREASED GLUCOSE; Start 03/14/19 at 23:30 Dextrose (D50w Syringe) 50 ml Q15M PRN IV DECREASED GLUCOSE; Start 03/14/19 at 23:30 Glucagon (Glucagen) 1 mg Q15M PRN IM DECREASED GLUCOSE; Start 03/14/19 at 23:30 Glucose (Glutose) 15 gm Q15M PRN BUCCAL DECREASED GLUCOSE; Start 03/14/19 at 23:30 Enoxaparin Sodium (Lovenox) 30 mg DAILY SC ; Start 03/16/19 at 09:00 Metoprolol Tartrate (Lopressor) 25 mg BID PO Last administered on 03/15/19at 20:34; Admin Dose 25 MG; Start 03/15/19 at 21:00 Insulin Aspart (Novolog Insulin Pen) 20 unit AC LUNCH ONCE SC ; Start 03/16/19 at 11:30; Stop 03/16/19 at 11:31 LEILANI RODRIGEZ March 16, 2019 07:52
[2019-03-16] MEDS: LOSARTAN 50 MG TAB PO SCH (08:14)
[2019-03-16] MEDS: HYDROCHLOROTHIAZIDE 25 MG TAB PO SCH (08:15)
[2019-03-16] MEDS: AMLODIPINE 10 MG TAB PO SCH (08:15)
[2019-03-16] MEDS: ASPIRIN (EC) 81 MG TAB PO SCH (08:15)
[2019-03-16] MEDS: METOPROLOL 25 MG TAB PO SCH ×2 (08:17→20:15)
[2019-03-16] MEDS: ENOXAPARIN 30 MG/0.3 ML SYG SC SCH (08:19)
[2019-03-16] MEDS: INSULIN ASPART [NOVOLOG] 3 ML PEN SC SCH ×3 (08:19→17:25)
[2019-03-16] MEDS ORDERED: INSULIN ASPART [NOVOLOG] 3 ML PEN SC ONE (11:30)
--- NOTE | 2019-03-16 13:58 | CONS ---
Assessment/Plan Assessment/Plan Assessment/Plan (Daily) 1. Acute kidney injury 2/2 Prerenal azotemia 2. Chest pain with palpitations 3. H/o HTN 4. H/O HL 5. H/o DM II 6. H/o CAD Plan: BUN/Cr /1.15, BP stable, cardiology following IVF 1/2 NS at 60 cc/hr will follow up Consultation Date/Type/Reason Admit Date/Time March 14, 2019 at 19:31 Initial Consult Date 03/15/19 Type of Consult NEPHROLOGY Requesting Provider: CATIE CARRILLO MD Date/Time of Note DATE: 03/16/19 TIME: 13:58 24 HR Interval Summary Free Text/Dictation BUN/Cr 1.15, BP stable, cardiology following Exam/Review of Systems Exam Vitals Vital Signs Date Temp Pulse Resp B/P (MAP) Pulse Ox O2 O2 Flow FiO2 Time Delivery Rate 03/16/19 68 12:08 03/16/19 98.7 20 139/61 94 11:13 (87) 03/14/19 Room Air 21:09 Intake and Output 03/15/19 03/15/19 03/16/19 1515:00 23:00 07:00 IntakeIntake Total 950 ml 500 ml BalanceBalance 950 ml 500 ml Exam Constitutional: alert Respiratory: clear to auscultation, normal air movement Cardiovascular: regular rate and rhythm, nl pulses Gastrointestinal: soft, non-tender Musculoskeletal: nl extremities to inspection Extremities: normal pulses 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 PAINTER II-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 Results Result Diagram: 03/16/19 0533 03/16/19 0533 Results 24hrs Laboratory Tests Test 03/15/19 17:40 03/15/19 20:27 03/16/19 05:33 03/16/19 07:45 Bedside Glucose 291 H 205 230 H White Blood Count 7.6 Red Blood Count 4.26 Hemoglobin 11.6 L Hematocrit 37.0 Mean Corpuscular 86.9 Volume Mean Corpuscular 27.2 L Hemoglobin Mean Corpuscular 31.4 L Hemoglobin Concent Red Cell 14.2 Distribution Width Platelet Count 302 Mean Platelet Volume 9.6 Immature 0.500 H Granulocytes % Neutrophils % 58.8 Lymphocytes % 28.5 Monocytes % 7.7 Eosinophils % 3.5 Basophils % 1.0 Nucleated Red Blood 0.0 Cells % Immature 0.040 H Granulocytes # Neutrophils # 4.5 Lymphocytes # 2.2 Monocytes # 0.6 Eosinophils # 0.3 Basophils # 0.1 Nucleated Red Blood 0.0 Cells # Sodium Level 138 Potassium Level 4.2 Chloride Level 102 Carbon Dioxide Level 26 Anion Gap 10 Blood Urea Nitrogen 22 H Creatinine 1.15 H Est Glomerular Filtrat Rate mL/min Glucose Level 229 H Hemoglobin A1c 8.6 H Calcium Level 8.9 Test 03/16/19 11:32 Bedside Glucose 114 Medications Medication Current Medications Amlodipine Besylate (Norvasc) 10 mg DAILY PO Last administered on 03/16/19 08:15; Admin Dose 10 MG; Start 03/15/19 at 09:00 Aspirin (Halfprin) 81 mg DAILY PO Last administered on 03/16/19 08:15; Admin Dose 81 MG; Start 03/15/19 at 09:00 Atorvastatin Calcium (Lipitor) 20 mg HS PO Last administered on 03/15/19 20:34; Admin Dose 20 MG; Start 03/15/19 at 21:00 Hydrochlorothiazide (Hydrochlorothiazide) 25 mg DAILY PO Last administered on 03/16/19 08:15; Admin Dose 25 MG; Start 03/15/19 at 09:00 Losartan Potassium (Cozaar) 100 mg DAILY PO Last administered on 03/16/19 08:14; Admin Dose 100 MG; Start 03/15/19 at 09:00 Sodium Chloride 1,000 ml @ 60 mls/hr [id number] IV Last administered on 03/14/19 22:30; Admin Dose 60 MLS/HR; Start 03/14/19 at 22:00 Diagnostic Test (Pha) (Accu-Chek) 1 ea AC MEALS AND BEDTIME XX Last administered on 03/15/19 21:00; Admin Dose 1 EA; Start 03/15/19 at 07:00 Insulin Aspart (Novolog Insulin Pen) 20 unit AC DINNER SC Last administered on 03/15/19 17:48; Admin Dose 20 UNIT; Start 03/15/19 at 17:30 Insulin Aspart (Novolog Insulin Pen) 24 unit AC BREAKFAST SC Last administered on 03/16/19 08:19; Admin Dose 24 UNIT; Start 03/15/19 at 07:00 Insulin Glargine (Lantus) 58 units DAILY@2000 SC Last administered on 03/15/19at 20:39; Admin Dose 58 UNITS; Start 03/15/19 at 20:00 Acetaminophen (Tylenol Tab) 650 mg Q4H PRN PO MILD PAIN(1-3)OR ELEVATED TEMP; Start 03/14/19 at 22:30 Miscellaneous Information 1 ea NOTE XX ; Start 03/14/19 at 23:30 Glucose (Glutose) 15 gm Q15M PRN PO DECREASED GLUCOSE; Start 03/14/19 at 23:30 Glucose (Glutose) 22.5 gm Q15M PRN PO DECREASED GLUCOSE; Start 03/14/19 at 23:30 Dextrose (D50w Syringe) 25 ml Q15M PRN IV DECREASED GLUCOSE; Start 03/14/19 at 23:30 Dextrose (D50w Syringe) 50 ml Q15M PRN IV DECREASED GLUCOSE; Start 03/14/19 at 23:30 Glucagon (Glucagen) 1 mg Q15M PRN IM DECREASED GLUCOSE; Start 03/14/19 at 23:30 Glucose (Glutose) 15 gm Q15M PRN BUCCAL DECREASED GLUCOSE; Start 03/14/19 at 23:30 Enoxaparin Sodium (Lovenox) 30 mg DAILY SC Last administered on 03/16/19at 08:19; Admin Dose 30 MG; Start 03/16/19 at 09:00 Metoprolol Tartrate (Lopressor) 25 mg BID PO Last administered on 03/16/19at 08:17; Admin Dose 25 MG; Start 03/15/19 at 21:00 Insulin Aspart (Novolog Insulin Pen) 20 unit AC LUNCH SC Last administered on 03/16/19at 12:01; Admin Dose 20 UNIT; Start 03/16/19 at 11:30 ELKIN MEDRANO MD March 16, 2019 13:58
--- NOTE | 2019-03-16 15:20 | CONS ---
Assessment/Plan Assessment/Plan Hospital Course (Demo Recall) IMPRESSION: 1. Palpitations, assess for true cardiac arrhythmia. At this time, currently improved. 2. Report of tachycardia and on admission, c/w sinus tachycardia. 3. Hypertension, labile. 4. Diabetes mellitus. 5. Dyslipidemia. 6. Anemia, mild. 7. Renal failure. Recc: -Tele -serial ecg's -Contineu BB -Contineu statin/losartan/HCTZ Consultation Date/Type/Reason Admit Date/Time March 14, 2019 at 19:31 Initial Consult Date 03/15/19 Type of Consult Cardiology Reason for Consultation palpitations Requesting Provider: CATIE CARRILLO MD Date/Time of Note DATE: 03/16/19 TIME: 15:18 Exam/Review of Systems Vital Signs Vitals Vital Signs Date Temp Pulse Resp B/P (MAP) Pulse Ox O2 O2 Flow FiO2 Time Delivery Rate 03/16/19 68 12:08 03/16/19 98.7 20 139/61 94 11:13 (87) 03/14/19 Room Air 21:09 Intake and Output 03/15/19 03/15/19 03/16/19 1515:00 23:00 07:00 IntakeIntake Total 950 ml 500 ml BalanceBalance 950 ml 500 ml Exam Exam Review of Systems: CONSTITUTIONAL: No fevers, chills. PULMONARY: No sob CARDIOVASCULAR: No chest pain/palpitations GASTROINTESTINAL: No nausea/vomiting. GENITOURINARY: No hematuria/dysuria. MUSCULOSKELETAL: No myagias/arthalgias. PSYCHIATRIC: The patient denies depression. NEUROLOGIC: No weakness Constitutional: alert Psych: no complaints Head: normocephalic ENMT: mucosa pink and moist Neck: supple, jvd (9 cm water) Respiratory: clear to auscultation Cardiovascular: regular rate and rhythm Gastrointestinal: soft, non-tender Musculoskeletal: muscle tone (normal) Extremities: edema (none) Neurological: other (No focal deficits) Labs Result Diagram: 03/16/19 0533 03/16/19 0533 Results 24hrs Laboratory Tests Test 03/15/19 17:40 03/15/19 20:27 03/16/19 05:33 03/16/19 07:45 Bedside Glucose 291 H 205 230 H White Blood Count 7.6 Red Blood Count 4.26 Hemoglobin 11.6 L Hematocrit 37.0 Mean Corpuscular 86.9 Volume Mean Corpuscular 27.2 L Hemoglobin Mean Corpuscular 31.4 L Hemoglobin Concent Red Cell 14.2 Distribution Width Platelet Count 302 Mean Platelet Volume 9.6 Immature 0.500 H Granulocytes % Neutrophils % 58.8 Lymphocytes % 28.5 Monocytes % 7.7 Eosinophils % 3.5 Basophils % 1.0 Nucleated Red Blood 0.0 Cells % Immature 0.040 H Granulocytes # Neutrophils # 4.5 Lymphocytes # 2.2 Monocytes # 0.6 Eosinophils # 0.3 Basophils # 0.1 Nucleated Red Blood 0.0 Cells # Sodium Level 138 Potassium Level 4.2 Chloride Level 102 Carbon Dioxide Level 26 Anion Gap 10 Blood Urea Nitrogen 22 H Creatinine 1.15 H Est Glomerular Filtrat Rate mL/min Glucose Level 229 H Hemoglobin A1c 8.6 H Calcium Level 8.9 Test 03/16/19 11:32 Bedside Glucose 114 Medications Medications Current Medications Amlodipine Besylate (Norvasc) 10 mg DAILY PO Last administered on 03/16/19 08:15; Admin Dose 10 MG; Start 03/15/19 at 09:00 Aspirin (Halfprin) 81 mg DAILY PO Last administered on 03/16/19 08:15; Admin Dose 81 MG; Start 03/15/19 at 09:00 Atorvastatin Calcium (Lipitor) 20 mg HS PO Last administered on 03/15/19 20:34; Admin Dose 20 MG; Start 03/15/19 at 21:00 Hydrochlorothiazide (Hydrochlorothiazide) 25 mg DAILY PO Last administered on 03/16/19 08:15; Admin Dose 25 MG; Start 03/15/19 at 09:00 Losartan Potassium (Cozaar) 100 mg DAILY PO Last administered on 03/16/19 08:14; Admin Dose 100 MG; Start 03/15/19 at 09:00 Sodium Chloride 1,000 ml @ 60 mls/hr [id number] IV Last administered on 03/14/19 22:30; Admin Dose 60 MLS/HR; Start 03/14/19 at 22:00 Diagnostic Test (Pha) (Accu-Chek) 1 ea AC MEALS AND BEDTIME XX Last adminis tered on 03/15/19 21:00; Admin Dose 1 EA; Start 03/15/19 at 07:00 Insulin Aspart (Novolog Insulin Pen) 20 unit AC DINNER SC Last administered on 03/15/19at 17:48; Admin Dose 20 UNIT; Start 03/15/19 at 17:30 Insulin Aspart (Novolog Insulin Pen) 24 unit AC BREAKFAST SC Last administered on 03/16/19at 08:19; Admin Dose 24 UNIT; Start 03/15/19 at 07:00 Insulin Glargine (Lantus) 58 units DAILY@2000 SC Last administered on 03/15/19at 20:39; Admin Dose 58 UNITS; Start 03/15/19 at 20:00 Acetaminophen (Tylenol Tab) 650 mg Q4H PRN PO MILD PAIN(1-3)OR ELEVATED TEMP; Start 03/14/19 at 22:30 Miscellaneous Information 1 ea NOTE XX ; Start 03/14/19 at 23:30 Glucose (Glutose) 15 gm Q15M PRN PO DECREASED GLUCOSE; Start 03/14/19 at 23:30 Glucose (Glutose) 22.5 gm Q15M PRN PO DECREASED GLUCOSE; Start 03/14/19 at 23:30 Dextrose (D50w Syringe) 25 ml Q15M PRN IV DECREASED GLUCOSE; Start 03/14/19 at 23:30 Dextrose (D50w Syringe) 50 ml Q15M PRN IV DECREASED GLUCOSE; Start 03/14/19 at 23:30 Glucagon (Glucagen) 1 mg Q15M PRN IM DECREASED GLUCOSE; Start 03/14/19 at 23:30 Glucose (Glutose) 15 gm Q15M PRN BUCCAL DECREASED GLUCOSE; Start 03/14/19 at 23:30 Enoxaparin Sodium (Lovenox) 30 mg DAILY SC Last administered on 03/16/19at 08:19; Admin Dose 30 MG; Start 03/16/19 at 09:00 Metoprolol Tartrate (Lopressor) 25 mg BID PO Last administered on 03/16/19at 08:17; Admin Dose 25 MG; Start 03/15/19 at 21:00 Insulin Aspart (Novolog Insulin Pen) 20 unit AC LUNCH SC Last administered on 03/16/19at 12:01; Admin Dose 20 UNIT; Start 03/16/19 at 11:30 JA WRIGHT March 16, 2019 15:20
--- NOTE | 2019-03-16 19:29 | RADRPT ---
Vent Rate: 75 bpm RR Interval: 800 msec [place] Interval: 173 msec QRS Duration: 77 msec QT Interval: 391 msec QTC Interval: 437 msec P-R-T [place]: 18 - 41 - 88 degrees Sinus rhythm...normal P axis, V-rate 50- 99 Nonspecific T abnormalities, lateral leads...T <-0.10mV, I aVL V5 V6 Electronically Signed By: Matt Jensen
[2019-03-16] MEDS: ACETAMINOPHEN 325 MG TAB PO PRN (20:12)
[2019-03-16] MEDS: ATORVASTATIN 20 MG TAB PO SCH (20:15)
[2019-03-16] MEDS: INSULIN GLARGINE [LANTus] (100 UNITS/ML) SYG SC SCH (20:16)
[2019-03-17] VITALS (12 sets, daily range): BP systolic 125–160; BP diastolic 58–69; PULSE 64–80; RESP 17–20
[2019-03-17] MEDS: ACCU-CHEK XX SCH ×4 (07:00→21:00)
[2019-03-17] MEDS: INSULIN ASPART [NOVOLOG] 3 ML PEN SC SCH ×3 (08:04→17:27)
[2019-03-17] MEDS: ENOXAPARIN 30 MG/0.3 ML SYG SC SCH (08:04)
[2019-03-17] MEDS: SOD CHLORIDE 0.45% 1,000 ML IV SCH ×2 (08:05)
[2019-03-17] MEDS: METOPROLOL 25 MG TAB PO SCH ×2 (08:06→21:17)
[2019-03-17] MEDS: AMLODIPINE 10 MG TAB PO SCH (08:06)
[2019-03-17] MEDS: HYDROCHLOROTHIAZIDE 25 MG TAB PO SCH (08:06)
[2019-03-17] MEDS: LOSARTAN 50 MG TAB PO SCH (08:06)
[2019-03-17] MEDS: ASPIRIN (EC) 81 MG TAB PO SCH (08:06)
--- NOTE | 2019-03-17 11:57 | CONS ---
Assessment/Plan Assessment/Plan Hospital Course (Demo Recall) IMPRESSION: 1. Palpitations, assess for true cardiac arrhythmia. At this time, currently improved. 2. Report of tachycardia and on admission, c/w sinus tachycardia.-neg trop x 3/ 3. Hypertension, labile. 4. Diabetes mellitus. 5. Dyslipidemia. 6. Anemia, mild. 7. Renal failure. Recc: -Tele -serial ecg's -Contineu BB -Contineu statin/losartan/HCTZ -cehck echo Consultation Date/Type/Reason Admit Date/Time March 14, 2019 at 19:31 Initial Consult Date 03/15/19 Type of Consult Cardiology Reason for Consultation palpitations Requesting Provider: CATIE CARRILLO MD Date/Time of Note DATE: 03/17/19 TIME: 11:55 Exam/Review of Systems Vital Signs Vitals Vital Signs Date Temp Pulse Resp B/P (MAP) Pulse Ox O2 O2 Flow FiO2 Time Delivery Rate 03/17/19 98.2 69 20 143/67 95 Room Air 11:13 (92) Intake and Output 03/16/19 03/16/19 03/17/19 1515:00 23:00 07:00 IntakeIntake Total 2720 ml 800 ml BalanceBalance 2720 ml 800 ml Exam Exam Review of Systems: CONSTITUTIONAL: No fevers, chills. PULMONARY: No sob CARDIOVASCULAR: No chest pain/palpitations GASTROINTESTINAL: No nausea/vomiting. GENITOURINARY: No hematuria/dysuria. MUSCULOSKELETAL: No myagias/arthalgias. PSYCHIATRIC: The patient denies depression. NEUROLOGIC: No weakness Constitutional: alert, oriented Psych: no complaints Head: normocephalic ENMT: mucosa pink and moist Neck: supple, jvd (9 cm water) Respiratory: clear to auscultation Cardiovascular: regular rate and rhythm Gastrointestinal: soft, non-tender Musculoskeletal: muscle tone (normal) Extremities: edema (none) Labs Result Diagram: 03/17/19 0557 03/17/19 0557 Results 24hrs Laboratory Tests Test 03/16/19 17:14 03/16/19 20:14 03/17/19 05:57 03/17/19 07:46 Bedside Glucose 111 97 173 White Blood Count 7.5 Red Blood Count 4.38 Hemoglobin 12.0 Hematocrit 38.2 Mean Corpuscular 87.2 Volume Mean Corpuscular 27.4 L Hemoglobin Mean Corpuscular 31.4 L Hemoglobin Concent Red Cell 13.8 Distribution Width Platelet Count 316 Mean Platelet Volume 9.5 Immature 0.500 H Granulocytes % Neutrophils % 53.2 Lymphocytes % 33.5 Monocytes % 7.6 Eosinophils % 4.4 Basophils % 0.8 Nucleated Red Blood 0.0 Cells % Immature 0.040 H Granulocytes # Neutrophils # 4.0 Lymphocytes # 2.5 Monocytes # 0.6 Eosinophils # 0.3 Basophils # 0.1 Nucleated Red Blood 0.0 Cells # Sodium Level 140 Potassium Level 4.4 Chloride Level 104 Carbon Dioxide Level 28 Anion Gap 8 Blood Urea Nitrogen 28 H Creatinine 1.23 H Est Glomerular Filtrat Rate mL/min Glucose Level 169 Calcium Level 9.0 Hepatitis B Surface NEGATIVE Antigen Hepatitis C Antibody NEGATIVE Test 03/17/19 07:55 Bedside Glucose 174 Medications Medications Current Medications Amlodipine Besylate (Norvasc) 10 mg DAILY PO Last administered on 03/17/19 08:06; Admin Dose 10 MG; Start 03/15/19 at 09:00 Aspirin (Halfprin) 81 mg DAILY PO Last administered on 03/17/19 08:06; Admin Dose 81 MG; Start 03/15/19 at 09:00 Atorvastatin Calcium (Lipitor) 20 mg HS PO Last administered on 03/16/19 20:15; Admin Dose 20 MG; Start 03/15/19 at 21:00 Hydrochlorothiazide (Hydrochlorothiazide) 25 mg DAILY PO Last administered on 03/17/19 08:06; Admin Dose 25 MG; Start 03/15/19 at 09:00 Losartan Potassium (Cozaar) 100 mg DAILY PO Last administered on 03/17/19 08:06; Admin Dose 100 MG; Start 03/15/19 at 09:00 Sodium Chloride 1,000 ml @ 60 mls/hr [id number] IV Last administered on 03/17/19 08:05; Admin Dose 60 MLS/HR; Start 03/14/19 at 22:00 Diagnostic Test (Pha) (Accu-Chek) 1 ea AC MEALS AND BEDTIME XX Last administered on 03/17/19 11:41; Admin Dose 1 EA; Start 03/15/19 at 07:00 Insulin Aspart (Novolog Insulin Pen) 20 unit AC DINNER SC Last administered on 5/26/19at 17:25; Admin Dose 20 UNIT; Start 03/15/19 at 17:30 Insulin Aspart (Novolog Insulin Pen) 24 unit AC BREAKFAST SC Last administered on 03/17/19 08:04; Admin Dose 24 UNIT; Start 03/15/19 at 07:00 Insulin Glargine (Lantus) 58 units DAILY@2000 SC Last administered on 03/16/19 20:16; Admin Dose 58 UNITS; Start 03/15/19 at 20:00 Acetaminophen (Tylenol Tab) 650 mg Q4H PRN PO MILD PAIN(1-3)OR ELEVATED TEMP Last administered on 03/16/19 20:12; Admin Dose 650 MG; Start 03/14/19 at 22:30 Miscellaneous Information 1 ea NOTE XX ; Start 03/14/19 at 23:30 Glucose (Glutose) 15 gm Q15M PRN PO DECREASED GLUCOSE; Start 03/14/19 at 23:30 Glucose (Glutose) 22.5 gm Q15M PRN PO DECREASED GLUCOSE; Start 03/14/19 at 23:30 Dextrose (D50w Syringe) 25 ml Q15M PRN IV DECREASED GLUCOSE; Start 03/14/19 at 23:30 Dextrose (D50w Syringe) 50 ml Q15M PRN IV DECREASED GLUCOSE; Start 03/14/19 at 23:30 Glucagon (Glucagen) 1 mg Q15M PRN IM DECREASED GLUCOSE; Start 03/14/19 at 23:30 Glucose (Glutose) 15 gm Q15M PRN BUCCAL DECREASED GLUCOSE; Start 03/14/19 at 23:30 Enoxaparin Sodium (Lovenox) 30 mg DAILY SC Last administered on 03/17/19at 08:04; Admin Dose 30 MG; Start 03/16/19 at 09:00 Metoprolol Tartrate (Lopressor) 25 mg BID PO Last administered on 03/17/19 08:06; Admin Dose 25 MG; Start 03/15/19 at 21:00 Insulin Aspart (Novolog Insulin Pen) 20 unit AC LUNCH SC Last administered on 03/16/19at 12:01; Admin Dose 20 UNIT; Start 03/16/19 at 11:30 JA WRIGHT March 17, 2019 11:57
--- NOTE | 2019-03-17 12:08 | CONS ---
Assessment/Plan Assessment/Plan Assessment/Plan (Daily) 1. Acute kidney injury 2/2 Prerenal azotemia 2. Chest pain with palpitations 3. H/o HTN 4. H/O HL 5. H/o DM II 6. H/o CAD Plan: BUN/Cr - other electrolytes stable, Cardiology following for work up of chest pain IVF 1/2 NS at 60 cc/hr- plan is to d/c IVF tomorrow AM if Cr stable will follow up Consultation Date/Type/Reason Admit Date/Time March 14, 2019 at 19:31 Initial Consult Date 03/15/19 Type of Consult NEPHROLOGY Requesting Provider: CATIE CARRILLO MD Date/Time of Note DATE: 03/17/19 TIME: 12:08 Exam/Review of Systems Exam Vitals Vital Signs Date Temp Pulse Resp B/P (MAP) Pulse Ox O2 O2 Flow FiO2 Time Delivery Rate 03/17/19 Room Air 12:05 03/17/19 98.2 69 20 143/67 95 11:13 (92) Intake and Output 03/16/19 03/16/19 03/17/19 1515:00 23:00 07:00 IntakeIntake Total 2720 ml 800 ml BalanceBalance 2720 ml 800 ml Exam Constitutional: alert Respiratory: clear to auscultation, normal air movement Cardiovascular: regular rate and rhythm, nl pulses Gastrointestinal: soft, non-tender Musculoskeletal: nl extremities to inspection Extremities: normal pulses 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 Results Result Diagram: 03/17/19 0557 03/17/19 0557 Results 24hrs Laboratory Tests Test 03/16/19 17:14 03/16/19 20:14 03/17/19 05:57 03/17/19 07:46 Bedside Glucose 111 97 173 White Blood Count 7.5 Red Blood Count 4.38 Hemoglobin 12.0 Hematocrit 38.2 Mean Corpuscular 87.2 Volume Mean Corpuscular 27.4 L Hemoglobin Mean Corpuscular 31.4 L Hemoglobin Concent Red Cell 13.8 Distribution Width Platelet Count 316 Mean Platelet Volume 9.5 Immature 0.500 H Granulocytes % Neutrophils % 53.2 Lymphocytes % 33.5 Monocytes % 7.6 Eosinophils % 4.4 Basophils % 0.8 Nucleated Red Blood 0.0 Cells % Immature 0.040 H Granulocytes # Neutrophils # 4.0 Lymphocytes # 2.5 Monocytes # 0.6 Eosinophils # 0.3 Basophils # 0.1 Nucleated Red Blood 0.0 Cells # Sodium Level 140 Potassium Level 4.4 Chloride Level 104 Carbon Dioxide Level 28 Anion Gap 8 Blood Urea Nitrogen 28 H Creatinine 1.23 H Est Glomerular Filtrat Rate mL/min Glucose Level 169 Calcium Level 9.0 Hepatitis B Surface NEGATIVE Antigen Hepatitis C Antibody NEGATIVE Test 03/17/19 07:55 Bedside Glucose 174 Medications Medication Current Medications Amlodipine Besylate (Norvasc) 10 mg DAILY PO Last administered on 03/17/19 08:06; Admin Dose 10 MG; Start 03/15/19 at 09:00 Aspirin (Halfprin) 81 mg DAILY PO Last administered on 03/17/19 08:06; Admin Dose 81 MG; Start 03/15/19 at 09:00 Atorvastatin Calcium (Lipitor) 20 mg HS PO Last administered on 03/16/19 20: 15; Admin Dose 20 MG; Start 03/15/19 at 21:00 Hydrochlorothiazide (Hydrochlorothiazide) 25 mg DAILY PO Last administered on 03/17/19 08:06; Admin Dose 25 MG; Start 03/15/19 at 09:00 Losartan Potassium (Cozaar) 100 mg DAILY PO Last administered on 03/17/19 08:06; Admin Dose 100 MG; Start 03/15/19 at 09:00 Sodium Chloride 1,000 ml @ 60 mls/hr [id number] IV Last administered on 03/17/19 08:05; Admin Dose 60 MLS/HR; Start 03/14/19 at 22:00 Diagnostic Test (Pha) (Accu-Chek) 1 ea AC MEALS AND BEDTIME XX Last administered on 03/17/19 11:41; Admin Dose 1 EA; Start 03/15/19 at 07:00 Insulin Aspart (Novolog Insulin Pen) 20 unit AC DINNER SC Last administered on 03/16/19 17:25; Admin Dose 20 UNIT; Start 03/15/19 at 17:30 Insulin Aspart (Novolog Insulin Pen) 24 unit AC BREAKFAST SC Last administered on 03/17/19 08:04; Admin Dose 24 UNIT; Start 03/15/19 at 07:00 Insulin Glargine (Lantus) 58 units DAILY@2000 SC Last administered on 5/26/19at 20:16; Admin Dose 58 UNITS; Start 03/15/19 at 20:00 Acetaminophen (Tylenol Tab) 650 mg Q4H PRN PO MILD PAIN(1-3)OR ELEVATED TEMP Last administered on 03/16/19at 20:12; Admin Dose 650 MG; Start 03/14/19 at 22:30 Miscellaneous Information 1 ea NOTE XX ; Start 03/14/19 at 23:30 Glucose (Glutose) 15 gm Q15M PRN PO DECREASED GLUCOSE; Start 03/14/19 at 23:30 Glucose (Glutose) 22.5 gm Q15M PRN PO DECREASED GLUCOSE; Start 03/14/19 at 23:30 Dextrose (D50w Syringe) 25 ml Q15M PRN IV DECREASED GLUCOSE; Start 03/14/19 at 23:30 Dextrose (D50w Syringe) 50 ml Q15M PRN IV DECREASED GLUCOSE; Start 03/14/19 at 23:30 Glucagon (Glucagen) 1 mg Q15M PRN IM DECREASED GLUCOSE; Start 03/14/19 at 23:30 Glucose (Glutose) 15 gm Q15M PRN BUCCAL DECREASED GLUCOSE; Start 03/14/19 at 23:30 Enoxaparin Sodium (Lovenox) 30 mg DAILY SC Last administered on 03/17/19at 08:04; Admin Dose 30 MG; Start 03/16/19 at 09:00 Metoprolol Tartrate (Lopressor) 25 mg BID PO Last administered on 03/17/19 08:06; Admin Dose 25 MG; Start 03/15/19 at 21:00 Insulin Aspart (Novolog Insulin Pen) 20 unit AC LUNCH SC Last administered on 03/16/19at 12:01; Admin Dose 20 UNIT; Start 03/16/19 at 11:30 ELKIN MEDRANO MD March 17, 2019 12:08
--- NOTE | 2019-03-17 13:41 | RADRPT ---
Echocardiogram Report Patient Name: LESTER WRIGHTPatient ID: [id number] : 1935 (83y 8m)Study Date: 03/17/2019 8:55:36 AM Gender: FAccession #: [id number] Tech: LE Location: [facility] Ref.Physician: CATIE CARRILLO Height(Cm): BSA: Weight(Kg): Quality: GoodOrder Physician: CATIE CARRILLO Account #: Procedures: Echocardiographic Report: Transthoracic echocardiogram with complete 2D, M-Mode, and doppler examination. Indications: SVT. Measurements: 2D/M Mode Doppler Measurement Value Normal Range Measurement Value Normal Range LVIDd 2D 4.5 [ 3.8 - 5.2 ] cm AV Mean Florencio 0.9 [ 70.0 - 90.0 ] cm/sec LVIDs 2D 3.0 [ 2.2 - 3.5 ] cm AV Mean PG 3.0 [ 2.0 - 4.0 ] mmHg LVPWd 2D 1.1 [ 0.6 - 0.9 ] cm AV Peak Fl[place]io 1.2 [ 100.0 - 170.0 ] cm/sec IVSd 2D 1.1 [ 0.6 - 0.9 ] cm AV Peak PG 6.0 [ 2.0 - 9.0 ] mmHg EDV 2D 90.5 [ 46.0 - 106.0 ] ml AV VTI 23.8 cm ESV 2D 35.9 [ 14.0 - 42.0 ] ml LVOT Peak Flore[place]io 0.9 [ 70.0 - 110.0 ] cm/sec EF 2D 60.3 [ 54.0 - 74.0 ] percent LVOT Peak PG 3.0 [ 2.0 - 6.0 ] mmHg LVOT Diam 1.9 [ 2.1 - 2.5 ] cm MV E Peak Florencio 0.6 [ 60.0 - 130.0 ] cm/sec MV A Peak Fl[place] 1.2 [ 100.0 - 120.0 ] cm/sec MV E/A 0.5 [ 0.8 - 1.5 ] ratio MV Decel Time 289 [ 104 - 258 ] msec Lat E` Florencio 0.1 [ 10.0 - 15.0 ] cm/sec Lateral E/E` 9.1 [ 1.0 - 2.0 ] ratio Med E` Florencio 0.0 cm/sec MV E/A 0.5 [ 0.8 - 1.5 ] ratio TR Peak Florencio 2.6 [ 100.0 - 280.0 ] cm/sec TR Peak PG 27.0 mmHg PV Peak Florencio 0.9 [ 40.0 - 80.0 ] cm/sec PV Peak PG 3.0 mmHg Findings: Left Ventricle: Normal left ventricular systolic function. Normal left ventricular cavity size. Normal left ventricular wall thickness. Ejection fraction is visually estimated at 60 %. Tissue Doppler/Mitral Doppler indices are consistent with impaired relaxation (Stage I diastolic dysfunction). Right Ventricle: Normal right ventricular size. Normal right ventricular systolic function. Left Atrium: Upper limit of normal left atrial size. Right Atrium: The right atrium is normal in size. Mitral Valve: Normal appearance of the mitral valve. Mild mitral annular calcification. Trace mitral regurgitation. Aortic Valve: Normal appearance of the aortic valve. No significant aortic stenosis or insufficiency. Tricuspid Valve: Normal appearance of the tricuspid valve. The estimated Peak RVSP is 30 mmHg. There is mild tricuspid regurgitation. Pulmonic Valve: Normal pulmonic valve appearance. Pericardium: Normal pericardium with no significant pericardial effusion. Aorta: Normal aortic root. IVC: Normal size and normal respiratory collapse consistent with normal right atrial pressure. Conclusions: Normal left ventricular systolic function. Normal left ventricular cavity size. Normal left ventricular wall thickness. Ejection fraction is visually estimated at 60 %. Tissue Doppler/Mitral Doppler indices are consistent with impaired relaxation (Stage I diastolic dysfunction). Normal appearance of the mitral valve. Mild mitral annular calcification. Trace mitral regurgitation. Normal appearance of the tricuspid valve. The estimated Peak RVSP is 30 mmHg. There is mild tricuspid regurgitation. Electronically Signed By: Matt Jensen 2019-03-17 13:40:23 PDT
--- NOTE | 2019-03-17 14:03 | PN ---
Date/Time of Note Date/Time of Note DATE: 03/17/19 TIME: 13:35 Assessment/Plan VTE Prophylaxis Risk score (from [facility] [place]0 risk: 3 SCD applied (from [facility] [place] No SCD contraindicated: patient refusal Pharmacological prophylaxis: LMWH Lines/Catheters IV Catheter Type (from [facility]): Peripheral IV Central line still needed: Yes Urinary Cath still in place: No Assessment/Plan Hospital Course Patient is awake alert, denies chest pain, 2D echo is still pending, venous Doppler is still pending. Plan of care discussed with case management. Assessment/Plan -Palpitations, tachycardia, resolved, rule out acute coronary syndrome, troponin is negative x3, pending 2D echo. Dr. Jensen is following in cardiology consultation. -Acute kidney injury, continue IV fluids, monitor BUN and creatinine, Dr. Alcocer is following in nephrology consultation. -Diabetes mellitus type 2 with hemoglobin A1c 8.6 and hyperglycemia on admission, continue Lantus and NovoLog. -Hypertension -Dyslipidemia Further recommendations based on clinical course. Plan of care discussed with Dr. Romero. Result Diagram: 03/17/19 0557 03/17/19 0557 Results 24hrs Laboratory Tests Test 03/16/19 17:14 03/16/19 20:14 03/17/19 05:57 03/17/19 07:46 Bedside Glucose 111 97 173 White Blood Count 7.5 Red Blood Count 4.38 Hemoglobin 12.0 Hematocrit 38.2 Mean Corpuscular 87.2 Volume Mean Corpuscular 27.4 L Hemoglobin Mean Corpuscular 31.4 L Hemoglobin Concent Red Cell 13.8 Distribution Width Platelet Count 316 Mean Platelet Volume 9.5 Immature 0.500 H Granulocytes % Neutrophils % 53.2 Lymphocytes % 33.5 Monocytes % 7.6 Eosinophils % 4.4 Basophils % 0.8 Nucleated Red Blood 0.0 Cells % Immature 0.040 H Granulocytes # Neutrophils # 4.0 Lymphocytes # 2.5 Monocytes # 0.6 Eosinophils # 0.3 Basophils # 0.1 Nucleated Red Blood 0.0 Cells # Sodium Level 140 Potassium Level 4.4 Chloride Level 104 Carbon Dioxide Level 28 Anion Gap 8 Blood Urea Nitrogen 28 H Creatinine 1.23 H Est Glomerular Filtrat Rate mL/min Glucose Level 169 Calcium Level 9.0 Magnesium Level 2.1 Hepatitis B Surface NEGATIVE Antigen Hepatitis C Antibody NEGATIVE Test 03/17/19 07:55 03/17/19 12:41 Bedside Glucose 174 239 H Exam/Review of Systems Exam Vitals Vital Signs Date Temp Pulse Resp B/P (MAP) Pulse Ox O2 O2 Flow FiO2 Time Delivery Rate 03/17/19 71 12:20 03/17/19 Room Air 12:05 03/17/19 98.2 20 143/67 95 11:13 (92) Intake and Output 03/16/19 03/16/19 03/17/19 1515:00 23:00 07:00 IntakeIntake Total 2720 ml 800 ml BalanceBalance 2720 ml 800 ml Constitutional: alert, oriented Head: normocephalic Neck: supple Respiratory: clear to auscultation Cardiovascular: regular rate and rhythm Gastrointestinal: soft, non-tender Extremities: normal pulses Neurological: nl mental status Skin: nl turgor Results Results 24hrs Laboratory Tests Test 03/16/19 17:14 03/16/19 20:14 03/17/19 05:57 03/17/19 07:46 Bedside Glucose 111 97 173 White Blood Count 7.5 Red Blood Count 4.38 Hemoglobin 12.0 Hematocrit 38.2 Mean Corpuscular 87.2 Volume Mean Corpuscular 27.4 L Hemoglobin Mean Corpuscular 31.4 L Hemoglobin Concent Red Cell 13.8 Distribution Width Platelet Count 316 Mean Platelet Volume 9.5 Immature 0.500 H Granulocytes % Neutrophils % 53.2 Lymphocytes % 33.5 Monocytes % 7.6 Eosinophils % 4.4 Basophils % 0.8 Nucleated Red Blood 0.0 Cells % Immature 0.040 H Granulocytes # Neutrophils # 4.0 Lymphocytes # 2.5 Monocytes # 0.6 Eosinophils # 0.3 Basophils # 0.1 Nucleated Red Blood 0.0 Cells # Sodium Level 140 Potassium Level 4.4 Chloride Level 104 Carbon Dioxide Level 28 Anion Gap 8 Blood Urea Nitrogen 28 H Creatinine 1.23 H Est Glomerular Filtrat Rate mL/min Glucose Level 169 Calcium Level 9.0 Magnesium Level 2.1 Hepatitis B Surface NEGATIVE Antigen Hepatitis C Antibody NEGATIVE Test 03/17/19 07:55 03/17/19 12:41 Bedside Glucose 174 239 H Medications Medication Current Medications Amlodipine Besylate (Norvasc) 10 mg DAILY PO Last administered on 03/17/19at 08:06; Admin Dose 10 MG; Start 03/15/19 at 09:00 Aspirin (Halfprin) 81 mg DAILY PO Last administered on 03/17/19 08:06; Admin Dose 81 MG; Start 03/15/19 at 09:00 Atorvastatin Calcium (Lipitor) 20 mg HS PO Last administered on 03/16/19 20:15; Admin Dose 20 MG; Start 03/15/19 at 21:00 Hydrochlorothiazide (Hydrochlorothiazide) 25 mg DAILY PO Last administered on 03/17/19 08:06; Admin Dose 25 MG; Start 03/15/19 at 09:00 Losartan Potassium (Cozaar) 100 mg DAILY PO Last administered on 03/17/19 08:06; Admin Dose 100 MG; Start 03/15/19 at 09:00 Sodium Chloride 1,000 ml @ 60 mls/hr [id number] IV Last administered on 03/17/19 08:05; Admin Dose 60 MLS/HR; Start 03/14/19 at 22:00 Diagnostic Test (Pha) (Accu-Chek) 1 ea AC MEALS AND BEDTIME XX Last administered on 03/17/19 11:41; Admin Dose 1 EA; Start 03/15/19 at 07:00 Insulin Aspart (Novolog Insulin Pen) 20 unit AC DINNER SC Last administered on 03/16/19 17:25; Admin Dose 20 UNIT; Start 03/15/19 at 17:30 Insulin Aspart (Novolog Insulin Pen) 24 unit AC BREAKFAST SC Last administered on 03/17/19 08:04; Admin Dose 24 UNIT; Start 03/15/19 at 07:00 Insulin Glargine (Lantus) 58 units DAILY@2000 SC Last administered on 03/16/19 20:16; Admin Dose 58 UNITS; Start 03/15/19 at 20:00 Acetaminophen (Tylenol Tab) 650 mg Q4H PRN PO MILD PAIN(1-3)OR ELEVATED TEMP Last administered on 03/16/19 20:12; Admin Dose 650 MG; Start 03/14/19 at 22:30 Miscellaneous Information 1 ea NOTE XX ; Start 03/14/19 at 23:30 Glucose (Glutose) 15 gm Q15M PRN PO DECREASED GLUCOSE; Start 03/14/19 at 23:30 Glucose (Glutose) 22.5 gm Q15M PRN PO DECREASED GLUCOSE; Start 03/14/19 at 23:30 Dextrose (D50w Syringe) 25 ml Q15M PRN IV DECREASED GLUCOSE; Start 03/14/19 at 23:30 Dextrose (D50w Syringe) 50 ml Q15M PRN IV DECREASED GLUCOSE; Start 03/14/19 at 23:30 Glucagon (Glucagen) 1 mg Q15M PRN IM DECREASED GLUCOSE; Start 03/14/19 at 23:30 Glucose (Glutose) 15 gm Q15M PRN BUCCAL DECREASED GLUCOSE; Start 03/14/19 at 23:30 Enoxaparin Sodium (Lovenox) 30 mg DAILY SC Last administered on 03/17/19at 08:04; Admin Dose 30 MG; Start 03/16/19 at 09:00 Metoprolol Tartrate (Lopressor) 25 mg BID PO Last administered on 03/17/19at 08:06; Admin Dose 25 MG; Start 03/15/19 at 21:00 Insulin Aspart (Novolog Insulin Pen) 20 unit AC LUNCH SC Last administered on 03/17/19at 12:56; Admin Dose 20 UNIT; Start 03/16/19 at 11:30 ANGELA PORTILLO March 17, 2019 13:45
--- NOTE | 2019-03-17 17:41 | CONS ---
Assessment/Plan Assessment/Plan Assessment/Plan (Daily) Patient is a 83-year-old female with Hx of hypertension, diabetes, current smoker was admitted with c/o of palpitations x few days and is admitted on tele unit. Hematology/Oncology is consulted for abnormal that revealed a 1.6 cm round circumscribed mass in the left upper lobe since 2013, stable multiple small subcentimeter micronodules in the bilateral lungs since 2013, chronic atelectasis, calcified sclerosis and increased cirrhotic changes. - Left lung - 1.6 cm round circumscribed mass - left upper lobe since 2013. Stable multiple small subcentimeter micronodule in the left lung since 2013 - no biopsy plan - will do PET scan as an out patient - cont to monitor - Right Lung -stable multiple small subcentimeter micronodule in the right lung since 2013. - no biopsy plan - will do PET scan as an out patient - cont to monitor -Tachycardia- no chest pain at present -Palpitations, assess for cardiac arrhythmia. none at resent - Cont on tele unit - cardiology consult- dr Jensen notified - Anemia - monitor CBC - Acute renal insufficiency- Cr 1.23 today - per Nephrology consult - Dr Bri Alcocer -Former smoker - Reinforce smoking cessation - Hypertension - Dyslipidemia - Diabetes - uncontrolled - Hgb - 8.6 ; Glycemic control; 1800 KIMBERLY, low Na, low cholesterol diet; Dietary consult; museum educator consult -Lovenox for DVT Prophylaxis Patient is seen in collaboration with dr Colin quick staff Consultation Date/Type/Reason Admit Date/Time March 14, 2019 at 19:31 Type of Consult HEMATOLOGY/ONCOLOGY Reason for Consultation RIGHT / LEFT LUNG NODES Date/Time of Note DATE: 03/17/19 TIME: 17:16 Hx of Present Illness Hx of Present Illness HPI Patient is a 83-year-old female with Hx of hypertension, diabetes, current smoker was admitted with c/o of palpitations x few days and is admitted on tele unit. She denies chest pain/palpitations/ shortness of breath/headache/ cough/ abdominal pain /NVD. Denies any fall /injury/ recent travel/contact with any sick. Denies any right/lrft calf pain. Denies focal weakness/numbness. Patient is admitted was admitted under Dr Carrillo for further treatment and evaluation. Hematology/Oncology is consulted for abnormal that revealed a 1.6 cm round circumscribed mass in the left upper lobe since 2013, stable multiple small subcentimeter micronodule in the bilateral lungs since 2013, chronic atelectasis, calcified sclerosis and increased cirrhotic changes.no events reported last night. Venous doppler BLEordered by PMD 11/23 patient c/o BLE pain- better now-will fu result - VS-temperature was 98.0, blood pressure 142/66, pulse 72, respiratory rate 18, sat 92% on RA - CBC- white count of 7.5, hemoglobin of 12.0 and platelet count of 316. - CHEM- Sodium of 140, potassium 4.4, creatinine 1.23, BUN 28, glucose 169. -Troponin was negative. - TSH was mildly elevated at 6.42 with normal free T4 - 03/15/19-- CT chest - revealed a 1.6 cm round circumscribed mass in the left upper lobe since 2013, stable multiple small subcentimeter micronodules in the bilateral lungs since 2013, chronic atelectasis, calcified sclerosis and increased cirrhotic changes. - 03/17/19- Venous Doppler - Negative - 03/15/19- Chest x-ray - multiple scarring in lingula suggesting COPD - 03/15/19- EKG -with normal sinus rhythm, rate 84, normal axis, normal intervals, with lateral T-wave inversion. ROS All systems reviewed and are negative except as per history of present illness. Medications Home Meds Active Scripts Hydrocodone Bit-Acetaminophen* ([place]*) 5-325 Mg Tab, 1 TAB PO Q6 PRN for PAIN, #7 TAB Prov:AYAN MEZA PA-C 05/26/16 Atorvastatin Calcium* (Atorvastatin Calcium*) 20 Mg Tab, 20 MG PO HS, #30 Prov:CATIE CARRILLO MD 08/29/14 Aspirin* (Aspirin* EC) 81 Mg Tabec, 81 MG PO DAILY, #30 Prov:CATIE CARRILLO MD 08/29/14 Reported Medications Amlodipine Besylate* (Amlodipine Besylate*) 10 Mg Tablet, 10 MG PO DAILY, TAB 08/25/14 Valsartan* (Diovan*) 320 Mg Tablet, 320 MG PO DAILY, TAB 08/25/14 Hydrochlorothiazide* (Hydrochlorothiazide*) 25 Mg Tab, 25 MG PO DAILY, TAB 08/25/14 Allergies Allergies: Coded Allergies: No Known Allergy (Unverified , 08/25/14) ROS ENT: no complaints Respiratory: no complaints Cardiovascular: no complaints Gastrointestinal: no complaints Genitourinary: no complaints Musculoskeletal: no complaints PMH/Family/Social Past Medical History Medical History: diabetes, hypertension Medications Constitutional: requiring O2 Eyes: no complaints ENT: no complaints Respiratory: no complaints Cardiovascular: no complaints Gastrointestinal: no complaints Genitourinary: no complaints Musculoskeletal: no complaints Skin: no complaints Neurologic: no complaints Endocrine: no complaints Lymphatic: no complaints Psychological: nl mood/affect Immunologic: no complaints Past Medical History PMhx/Soc History of Surgery: Yes (Rene Cataract removal) Anesthesia Reaction: No Hx Neurological Disorder: No Hx Respiratory Disorders: No Hx Cardiac Disorders: Yes (HTN) Hx Psychiatric Problems: No Hx Miscellaneous Medical Probl: No Hx Alcohol Use: No Hx Substance Use: No Hx Tobacco Use: Yes Smoking Status: Former smoker FmHx Family History: No coronary disease Medical History: diabetes, hypertension Home Meds Active Scripts Hydrocodone Bit-Acetaminophen* ([place]*) 5-325 Mg Tab, 1 TAB PO Q6 PRN for PAIN, #7 TAB Prov:AYAN MEZA PA-C 05/26/16 Atorvastatin Calcium* (Atorvastatin Calcium*) 20 Mg Tab, 20 MG PO HS, #30 Prov:CATIE CARRILLO MD 08/29/14 Aspirin* (Aspirin* EC) 81 Mg Tabec, 81 MG PO DAILY, #30 Prov:CATIE CARRILLO MD 08/29/14 Reported Medications Amlodipine Besylate* (Amlodipine Besylate*) 10 Mg Tablet, 10 MG PO DAILY, TAB 08/25/14 Valsartan* (Diovan*) 320 Mg Tablet, 320 MG PO DAILY, TAB 08/25/14 Hydrochlorothiazide* (Hydrochlorothiazide*) 25 Mg Tab, 25 MG PO DAILY, TAB 08/25/14 Medications Current Medications Amlodipine Besylate (Norvasc) 10 mg DAILY PO Last administered on 03/17/19at 08:06; Admin Dose 10 MG; Start 03/15/19 at 09:00 Aspirin (Halfprin) 81 mg DAILY PO Last administered on 03/17/19at 08:06; Admin Dose 81 MG; Start 03/15/19 at 09:00 Atorvastatin Calcium (Lipitor) 20 mg HS PO Last administered on 03/16/19 20:15; Admin Dose 20 MG; Start 03/15/19 at 21:00 Hydrochlorothiazide (Hydrochlorothiazide) 25 mg DAILY PO Last administered on 03/17/19 08:06; Admin Dose 25 MG; Start 03/15/19 at 09:00 Losartan Potassium (Cozaar) 100 mg DAILY PO Last administered on 03/17/19 08:06; Admin Dose 100 MG; Start 03/15/19 at 09:00 Sodium Chloride 1,000 ml @ 60 mls/hr [id number] IV Last administered on 03/17/19 08:05; Admin Dose 60 MLS/HR; Start 03/14/19 at 22:00 Diagnostic Test (Pha) (Accu-Chek) 1 ea AC MEALS AND BEDTIME XX Last administered on 03/17/19 11:41; Admin Dose 1 EA; Start 03/15/19 at 07:00 Insulin Aspart (Novolog Insulin Pen) 20 unit AC DINNER SC Last administered on 03/16/19 17:25; Admin Dose 20 UNIT; Start 03/15/19 at 17:30 Insulin Aspart (Novolog Insulin Pen) 24 unit AC BREAKFAST SC Last administered on 03/17/19 08:04; Admin Dose 24 UNIT; Start 03/15/19 at 07:00 Insulin Glargine (Lantus) 58 units DAILY@2000 SC Last administered on 03/16/19 20:16; Admin Dose 58 UNITS; Start 03/15/19 at 20:00 Acetaminophen (Tylenol Tab) 650 mg Q4H PRN PO MILD PAIN(1-3)OR ELEVATED TEMP Last administered on 03/16/19 20:12; Admin Dose 650 MG; Start 03/14/19 at 22:30 Miscellaneous Information 1 ea NOTE XX ; Start 03/14/19 at 23:30 Glucose (Glutose) 15 gm Q15M PRN PO DECREASED GLUCOSE; Start 03/14/19 at 23:30 Glucose (Glutose) 22.5 gm Q15M PRN PO DECREASED GLUCOSE; Start 03/14/19 at 23 :30 Dextrose (D50w Syringe) 25 ml Q15M PRN IV DECREASED GLUCOSE; Start 03/14/19 at 23:30 Dextrose (D50w Syringe) 50 ml Q15M PRN IV DECREASED GLUCOSE; Start 03/14/19 at 23:30 Glucagon (Glucagen) 1 mg Q15M PRN IM DECREASED GLUCOSE; Start 03/14/19 at 23:30 Glucose (Glutose) 15 gm Q15M PRN BUCCAL DECREASED GLUCOSE; Start 03/14/19 at 23:30 Enoxaparin Sodium (Lovenox) 30 mg DAILY SC Last administered on 03/17/19at 08:04; Admin Dose 30 MG; Start 03/16/19 at 09:00 Metoprolol Tartrate (Lopressor) 25 mg BID PO Last administered on 03/17/19at 08:06; Admin Dose 25 MG; Start 03/15/19 at 21:00 Insulin Aspart (Novolog Insulin Pen) 20 unit AC LUNCH SC Last administered on 03/17/19at 12:56; Admin Dose 20 UNIT; Start 03/16/19 at 11:30 Allergies: Coded Allergies: No Known Allergy (Unverified , 08/25/14) Past Surgical History Past Surgical Hx: no surgical history Social History Alcohol Use: none Smoking Status: Former smoker Drug Use: none Exam/Review of Systems Exam Vitals Vital Signs Date Temp Pulse Resp B/P (MAP) Pulse Ox O2 O2 Flow FiO2 Time Delivery Rate 03/17/19 70 16:18 03/17/19 Room Air 16:17 03/17/19 98.0 18 143/66 92 15:22 (91) Intake and Output 03/16/19 03/16/19 03/17/19 1515:00 23:00 07:00 IntakeIntake Total 2720 ml 800 ml BalanceBalance 2720 ml 800 ml Constitutional: alert, well developed Psych: nl mood/affect Head: atraumatic Eyes: nl lids, nl sclera ENMT: nl external ears & nose Neck: non-tender Respiratory: clear to auscultation Cardiovascular: nl pulses, other (S1S2) Gastrointestinal: soft, non-tender Musculoskeletal: nl extremities to inspection Extremities: normal pulses Neurological: nl mental status, nl speech Skin: nl turgor Lymph: nontender Results Result Diagram: 03/17/19 0557 03/17/19 0557 Results 24hrs Laboratory Tests Test 03/16/19 20:14 03/17/19 05:57 03/17/19 07:46 03/17/19 07:55 Bedside Glucose 97 173 174 White Blood Count 7.5 Red Blood Count 4.38 Hemoglobin 12.0 Hematocrit 38.2 Mean Corpuscular 87.2 Volume Mean Corpuscular 27.4 L Hemoglobin Mean Corpuscular 31.4 L Hemoglobin Concent Red Cell 13.8 Distribution Width Platelet Count 316 Mean Platelet Volume 9.5 Immature 0.500 H Granulocytes % Neutrophils % 53.2 Lymphocytes % 33.5 Monocytes % 7.6 Eosinophils % 4.4 Basophils % 0.8 Nucleated Red Blood 0.0 Cells % Immature 0.040 H Granulocytes # Neutrophils # 4.0 Lymphocytes # 2.5 Monocytes # 0.6 Eosinophils # 0.3 Basophils # 0.1 Nucleated Red Blood 0.0 Cells # Sodium Level 140 Potassium Level 4.4 Chloride Level 104 Carbon Dioxide Level 28 Anion Gap 8 Blood Urea Nitrogen 28 H Creatinine 1.23 H Est Glomerular Filtrat Rate mL/min Glucose Level 169 Calcium Level 9.0 Magnesium Level 2.1 Hepatitis B Surface NEGATIVE Antigen Hepatitis C Antibody NEGATIVE Test 03/17/19 12:41 Bedside Glucose 239 H Medications Medication Current Medications Amlodipine Besylate (Norvasc) 10 mg DAILY PO Last administered on 03/17/19 08:06; Admin Dose 10 MG; Start 03/15/19 at 09:00 Aspirin (Halfprin) 81 mg DAILY PO Last administered on 03/17/19 08:06; Admin Dose 81 MG; Start 03/15/19 at 09:00 Atorvastatin Calcium (Lipitor) 20 mg HS PO Last administered on 03/16/19 20:15; Admin Dose 20 MG; Start 03/15/19 at 21:00 Hydrochlorothiazide (Hydrochlorothiazide) 25 mg DAILY PO Last administered on 03/17/19 08:06; Admin Dose 25 MG; Start 03/15/19 at 09:00 Losartan Potassium (Cozaar) 100 mg DAILY PO Last administered on 03/17/19 08:06; Admin Dose 100 MG; Start 03/15/19 at 09:00 Sodium Chloride 1,000 ml @ 60 mls/hr [id number] IV Last administered on 03/17/19 08:05; Admin Dose 60 MLS/HR; Start 03/14/19 at 22:00 Diagnostic Test (Pha) (Accu-Chek) 1 ea AC MEALS AND BEDTIME XX Last admini stered on 03/17/19 11:41; Admin Dose 1 EA; Start 03/15/19 at 07:00 Insulin Aspart (Novolog Insulin Pen) 20 unit AC DINNER SC Last administered on 03/16/19 17:25; Admin Dose 20 UNIT; Start 03/15/19 at 17:30 Insulin Aspart (Novolog Insulin Pen) 24 unit AC BREAKFAST SC Last administered on 03/17/19 08:04; Admin Dose 24 UNIT; Start 03/15/19 at 07:00 Insulin Glargine (Lantus) 58 units DAILY@2000 SC Last administered on 03/16/19at 20:16; Admin Dose 58 UNITS; Start 03/15/19 at 20:00 Acetaminophen (Tylenol Tab) 650 mg Q4H PRN PO MILD PAIN(1-3)OR ELEVATED TEMP Last administered on 03/16/19at 20:12; Admin Dose 650 MG; Start 03/14/19 at 22:30 Miscellaneous Information 1 ea NOTE XX ; Start 03/14/19 at 23:30 Glucose (Glutose) 15 gm Q15M PRN PO DECREASED GLUCOSE; Start 03/14/19 at 23:30 Glucose (Glutose) 22.5 gm Q15M PRN PO DECREASED GLUCOSE; Start 03/14/19 at 23:30 Dextrose (D50w Syringe) 25 ml Q15M PRN IV DECREASED GLUCOSE; Start 03/14/19 at 23:30 Dextrose (D50w Syringe) 50 ml Q15M PRN IV DECREASED GLUCOSE; Start 03/14/19 at 23:30 Glucagon (Glucagen) 1 mg Q15M PRN IM DECREASED GLUCOSE; Start 03/14/19 at 23:30 Glucose (Glutose) 15 gm Q15M PRN BUCCAL DECREASED GLUCOSE; Start 03/14/19 at 23:30 Enoxaparin Sodium (Lovenox) 30 mg DAILY SC Last administered on 03/17/19at 08:04; Admin Dose 30 MG; Start 03/16/19 at 09:00 Metoprolol Tartrate (Lopressor) 25 mg BID PO Last administered on 03/17/19at 08:06; Admin Dose 25 MG; Start 03/15/19 at 21:00 Insulin Aspart (Novolog Insulin Pen) 20 unit AC LUNCH SC Last administered on 03/17/19at 12:56; Admin Dose 20 UNIT; Start 03/16/19 at 11:30 LEILANI RODRIGEZ March 17, 2019 17:26
[2019-03-17] MEDS: ATORVASTATIN 20 MG TAB PO SCH (21:17)
[2019-03-17] MEDS: ACETAMINOPHEN 325 MG TAB PO PRN (21:18)
[2019-03-17] MEDS: INSULIN GLARGINE [LANTus] (100 UNITS/ML) SYG SC SCH (21:31)
[2019-03-18] VITALS (10 sets, daily range): BP systolic 128–143; BP diastolic 61–68; PULSE 55–80; RESP 18–20
[2019-03-18] MEDS: ACCU-CHEK XX SCH ×3 (07:00→17:30)
[2019-03-18] MEDS: ASPIRIN (EC) 81 MG TAB PO SCH (08:19)
[2019-03-18] MEDS: HYDROCHLOROTHIAZIDE 25 MG TAB PO SCH (08:19)
[2019-03-18] MEDS: LOSARTAN 50 MG TAB PO SCH (08:20)
[2019-03-18] MEDS: METOPROLOL 25 MG TAB PO SCH (08:20)
[2019-03-18] MEDS: AMLODIPINE 10 MG TAB PO SCH (08:20)
--- NOTE | 2019-03-18 08:25 | CONS ---
Consult Date/Type/Reason Admit Date/Time March 14, 2019 at 19:31 Initial Consult Date 03/15/19 Requesting Provider: CATIE CARRILLO MD Date/Time of Note DATE: 03/18/19 TIME: 08:23 Subjective NO acute events - pt comfortable -sinus on tele, rate controlled. ROS: No fever, no chills, no nausea, no vomiting, no diarrhea/constipation Objective Vitals Vital Signs Date Temp Pulse Resp B/P (MAP) Pulse Ox O2 O2 Flow FiO2 Time Delivery Rate 03/18/19 80 08:21 03/18/19 97.9 20 128/63 93 07:13 (84) 03/17/19 Room Air 16:17 Intake and Output 03/17/19 03/17/19 03/18/19 1515:00 23:00 07:00 IntakeIntake Total 720 ml 1920 ml 350 ml BalanceBalance 720 ml 1920 ml 350 ml Exam General: WN/WD/NAD, AOx comfortable HEENT: Unicetric/atraumatic/EOMI (does not follow commands) NECK: JVD elevated, no thyromegaly Lymph: no lymphadenopathy HEART: regular with no S3, II/ systolic murmur at apex LUNGS: Coarse sounds ABD: soft, NT, ND, +BS : Intact Neuro: non focal SKIN: chronic changes EXT: trace edema Results/Medications Result Diagram: 03/17/19 0557 03/17/19 0557 Results 24 hrs Laboratory Tests Test 03/17/19 12:41 03/17/19 17:13 03/17/19 21:10 03/18/19 07:41 Bedside Glucose 239 H 90 125 92 Home Meds Active Scripts Hydrocodone Bit-Acetaminophen* ([place]*) 5-325 Mg Tab, 1 TAB PO Q6 PRN for PAIN, #7 TAB Prov:AYAN MEZA PAZak 05/26/16 Atorvastatin Calcium* (Atorvastatin Calcium*) 20 Mg Tab, 20 MG PO HS, #30 Prov:CATIE CARRILLO MD 08/29/14 Aspirin* (Aspirin* EC) 81 Mg Tabec, 81 MG PO DAILY, #30 Prov:CATIE CARRILLO MD 08/29/14 Reported Medications Amlodipine Besylate* (Amlodipine Besylate*) 10 Mg Tablet, 10 MG PO DAILY, TAB 08/25/14 Valsartan* (Diovan*) 320 Mg Tablet, 320 MG PO DAILY, TAB 08/25/14 Hydrochlorothiazide* (Hydrochlorothiazide*) 25 Mg Tab, 25 MG PO DAILY, TAB 08/25/14 Medications Current Medications Amlodipine Besylate (Norvasc) 10 mg DAILY PO Last administered on 03/17/19 08:06; Admin Dose 10 MG; Start 03/15/19 at 09:00 Aspirin (Halfprin) 81 mg DAILY PO Last administered on 03/17/19 08:06; Admin Dose 81 MG; Start 03/15/19 at 09:00 Atorvastatin Calcium (Lipitor) 20 mg HS PO Last administered on 03/17/19 21:17; Admin Dose 20 MG; Start 03/15/19 at 21:00 Hydrochlorothiazide (Hydrochlorothiazide) 25 mg DAILY PO Last administered on 03/17/19 08:06; Admin Dose 25 MG; Start 03/15/19 at 09:00 Losartan Potassium (Cozaar) 100 mg DAILY PO Last administered on 03/17/19 08:06; Admin Dose 100 MG; Start 03/15/19 at 09:00 Diagnostic Test (Pha) (Accu-Chek) 1 ea AC MEALS AND BEDTIME XX Last administered on 03/17/19 17:27; Admin Dose 1 EA; Start 03/15/19 at 07:00 Insulin Aspart (Novolog Insulin Pen) 20 unit AC DINNER SC Last administered on 03/17/19 17:27; Admin Dose 20 UNIT; Start 03/15/19 at 17:30 Insulin Aspart (Novolog Insulin Pen) 24 unit AC BREAKFAST SC Last administered on 03/17/19 08:04; Admin Dose 24 UNIT; Start 03/15/19 at 07:00 Insulin Glargine (Lantus) 58 units DAILY@2000 SC Last administered on 03/17/19 21:31; Admin Dose 58 UNITS; Start 03/15/19 at 20:00 Acetaminophen (Tylenol Tab) 650 mg Q4H PRN PO MILD PAIN(1-3)OR ELEVATED TEMP Last administered on 03/17/19 21:18; Admin Dose 650 MG; Start 03/14/19 at 22:30 Miscellaneous Information 1 ea NOTE XX ; Start 03/14/19 at 23:30 Glucose (Glutose) 15 gm Q15M PRN PO DECREASED GLUCOSE; Start 03/14/19 at 23:30 Glucose (Glutose) 22.5 gm Q15M PRN PO DECREASED GLUCOSE; Start 03/14/19 at 23:30 Dextrose (D50w Syringe) 25 ml Q15M PRN IV DECREASED GLUCOSE; Start 03/14/19 at 23:30 Dextrose (D50w Syringe) 50 ml Q15M PRN IV DECREASED GLUCOSE; Start 03/14/19 at 23:30 Glucagon (Glucagen) 1 mg Q15M PRN IM DECREASED GLUCOSE; Start 03/14/19 at 23:30 Glucose (Glutose) 15 gm Q15M PRN BUCCAL DECREASED GLUCOSE; Start 03/14/19 at 23:30 Enoxaparin Sodium (Lovenox) 30 mg DAILY SC Last administered on 03/17/19at 08: 04; Admin Dose 30 MG; Start 03/16/19 at 09:00 Metoprolol Tartrate (Lopressor) 25 mg BID PO Last administered on 03/17/19at 21:17; Admin Dose 25 MG; Start 03/15/19 at 21:00 Insulin Aspart (Novolog Insulin Pen) 20 unit AC LUNCH SC Last administered on 03/17/19at 12:56; Admin Dose 20 UNIT; Start 03/16/19 at 11:30 Assessment/Plan Hospital Course (Demo Recall) 1. Palpitations, assess for true cardiac arrhythmia. At this time, currently improved - in sinus, rate controlled 2. Report of tachycardia and on admission, c/w sinus tachycardia.-neg trop x 3 - now better. 3. Hypertension, labile - BP well maintained now. 4. Diabetes mellitus- on meds, keep euglycemic. 5. Dyslipidemia 6. Anemia, mild - will monitor clinically. 7. Renal failure - Cr stable + urine output. STEPHAN ARTEAGA MD March 18, 2019 08:25
[2019-03-18] MEDS: INSULIN ASPART [NOVOLOG] 3 ML PEN SC SCH ×3 (08:27→17:30)
[2019-03-18] MEDS: ENOXAPARIN 30 MG/0.3 ML SYG SC SCH (08:28)
--- NOTE | 2019-03-18 15:19 | CONS ---
Assessment/Plan Assessment/Plan Hospital Course (Demo Recall) #Lung masses -Recent CT demonstrated 1.6 cm round circumscribed mass in the left upper lobe since 2014, stable multiple small subcentimeter micronodules in the bilateral lungs since 2014, chronic atelectasis, calcified sclerosis and increased cirrhotic changes. 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 pt did state she has a history of TB and residual lung nodules since then Exam/Review of Systems Exam Vitals Vital Signs Date Temp Pulse Resp B/P (MAP) Pulse Ox O2 O2 Flow FiO2 Time Delivery Rate 03/18/19 71 12:27 03/18/19 97.9 20 135/61 92 11:03 (85) 03/17/19 Room Air 16:17 Intake and Output 03/17/19 03/17/19 03/18/19 1515:00 23:00 07:00 IntakeIntake Total 720 ml 1920 ml 350 ml BalanceBalance 720 ml 1920 ml 350 ml Constitutional: alert Psych: no complaints Head: normocephalic Eyes: nl conjunctiva ENMT: nl external ears & nose Neck: supple Respiratory: clear to auscultation Cardiovascular: regular rate and rhythm Gastrointestinal: soft Musculoskeletal: nl extremities to inspection Extremities: normal pulses Results Result Diagram: 03/17/19 0557 03/17/19 0557 Results 24hrs Laboratory Tests Test 03/17/19 17:13 03/17/19 21:10 03/18/19 07:41 03/18/19 12:19 Bedside Glucose 90 125 92 94 Medications Medication Current Medications Amlodipine Besylate (Norvasc) 10 mg DAILY PO Last administered on 03/18/19at 08:20; Admin Dose 10 MG; Start 03/15/19 at 09:00 Aspirin (Halfprin) 81 mg DAILY PO Last administered on 03/18/19at 08:19; Admin Dose 81 MG; Start 03/15/19 at 09:00 Atorvastatin Calcium (Lipitor) 20 mg HS PO Last administered on 03/17/19 21:17; Admin Dose 20 MG; Start 03/15/19 at 21:00 Hydrochlorothiazide (Hydrochlorothiazide) 25 mg DAILY PO Last administered on 03/18/19 08:19; Admin Dose 25 MG; Start 03/15/19 at 09:00 Losartan Potassium (Cozaar) 100 mg DAILY PO Last administered on 03/18/19 08:20; Admin Dose 100 MG; Start 03/15/19 at 09:00 Diagnostic Test (Pha) (Accu-Chek) 1 ea AC MEALS AND BEDTIME XX Last administered on 03/18/19 12:27; Admin Dose 1 EA; Start 03/15/19 at 07:00 Insulin Aspart (Novolog Insulin Pen) 20 unit AC DINNER SC Last administered on 03/17/19 17:27; Admin Dose 20 UNIT; Start 03/15/19 at 17:30 Insulin Aspart (Novolog Insulin Pen) 24 unit AC BREAKFAST SC Last administered on 03/18/19 08:27; Admin Dose 24 UNIT; Start 03/15/19 at 07:00 Insulin Glargine (Lantus) 58 units DAILY@2000 SC Last administered on 03/17/19 21:31; Admin Dose 58 UNITS; Start 03/15/19 at 20:00 Acetaminophen (Tylenol Tab) 650 mg Q4H PRN PO MILD PAIN(1-3)OR ELEVATED TEMP Last administered on 03/17/19 21:18; Admin Dose 650 MG; Start 03/14/19 at 22:30 Miscellaneous Information 1 ea NOTE XX ; Start 03/14/19 at 23:30 Glucose (Glutose) 15 gm Q15M PRN PO DECREASED GLUCOSE; Start 03/14/19 at 23:30 Glucose (Glutose) 22.5 gm Q15M PRN PO DECREASED GLUCOSE; Start 03/14/19 at 23:30 Dextrose (D50w Syringe) 25 ml Q15M PRN IV DECREASED GLUCOSE; Start 03/14/19 at 23:30 Dextrose (D50w Syringe) 50 ml Q15M PRN IV DECREASED GLUCOSE; Start 03/14/19 at 23:30 Glucagon (Glucagen) 1 mg Q15M PRN IM DECREASED GLUCOSE; Start 03/14/19 at 23:30 Glucose (Glutose) 15 gm Q15M PRN BUCCAL DECREASED GLUCOSE; Start 03/14/19 at 23:30 Enoxaparin Sodium (Lovenox) 30 mg DAILY SC Last administered on 03/18/19at 08:28; Admin Dose 30 MG; Start 03/16/19 at 09:00 Metoprolol Tartrate (Lopressor) 25 mg BID PO Last administered on 03/18/19at 08:20; Admin Dose 25 MG; Start 03/15/19 at 21:00 Insulin Aspart (Novolog Insulin Pen) 20 unit AC LUNCH SC Last administered on 03/18/19at 12:25; Admin Dose 20 UNIT; Start 03/16/19 at 11:30 RALPH GREGORY M.D. March 18, 2019 15:19
--- NOTE | 2019-03-18 16:30 | CONS ---
Assessment/Plan Assessment/Plan Assessment/Plan (Daily) 1. Acute kidney injury 2/2 Prerenal azotemia 2. Chest pain with palpitations 3. H/o HTN 4. H/O HL 5. H/o DM II 6. H/o CAD Plan: BUN/Cr - other electrolytes stable, Cardiology following for work up of chest pain IVF 1/2 NS at 60 cc/hr- plan is to d/c IVF tomorrow AM if Cr stable will follow up Consultation Date/Type/Reason Admit Date/Time March 14, 2019 at 19:31 Initial Consult Date 03/15/19 Type of Consult NEPHROLOGY Requesting Provider: CATIE CARRILLO MD Date/Time of Note DATE: 03/18/19 TIME: 16:30 Exam/Review of Systems Exam Vitals Vital Signs Date Temp Pulse Resp B/P (MAP) Pulse Ox O2 O2 Flow FiO2 Time Delivery Rate 03/18/19 97.7 72 20 143/61 93 15:28 (88) 03/17/19 Room Air 16:17 Intake and Output 03/17/19 03/17/19 03/18/19 1515:00 23:00 07:00 IntakeIntake Total 720 ml 1920 ml 350 ml BalanceBalance 720 ml 1920 ml 350 ml Results Result Diagram: 03/17/19 0557 03/17/19 0557 Results 24hrs Laboratory Tests Test 03/17/19 17:13 03/17/19 21:10 03/18/19 07:41 03/18/19 12:19 Bedside Glucose 90 125 92 94 Medications Medication Current Medications Amlodipine Besylate (Norvasc) 10 mg DAILY PO Last administered on 03/18/19at 08:20; Admin Dose 10 MG; Start 03/15/19 at 09:00 Aspirin (Halfprin) 81 mg DAILY PO Last administered on 03/18/19at 08:19; Admin Dose 81 MG; Start 03/15/19 at 09:00 Atorvastatin Calcium (Lipitor) 20 mg HS PO Last administered on 03/17/19at 21:17; Admin Dose 20 MG; Start 03/15/19 at 21:00 Hydrochlorothiazide (Hydrochlorothiazide) 25 mg DAILY PO Last administered on 03/18/19at 08:19; Admin Dose 25 MG; Start 03/15/19 at 09:00 Losartan Potassium (Cozaar) 100 mg DAILY PO Last administered on 03/18/19 08:20; Admin Dose 100 MG; Start 03/15/19 at 09:00 Diagnostic Test (Pha) (Accu-Chek) 1 ea AC MEALS AND BEDTIME XX Last administered on 03/18/19 12:27; Admin Dose 1 EA; Start 03/15/19 at 07:00 Insulin Aspart (Novolog Insulin Pen) 20 unit AC DINNER SC Last administered on 03/17/19 17:27; Admin Dose 20 UNIT; Start 03/15/19 at 17:30 Insulin Aspart (Novolog Insulin Pen) 24 unit AC BREAKFAST SC Last administered on 03/18/19 08:27; Admin Dose 24 UNIT; Start 03/15/19 at 07:00 Insulin Glargine (Lantus) 58 units DAILY@2000 SC Last administered on 03/17/19 21:31; Admin Dose 58 UNITS; Start 03/15/19 at 20:00 Acetaminophen (Tylenol Tab) 650 mg Q4H PRN PO MILD PAIN(1-3)OR ELEVATED TEMP Last administered on 03/17/19 21:18; Admin Dose 650 MG; Start 03/14/19 at 22:30 Miscellaneous Information 1 ea NOTE XX ; Start 03/14/19 at 23:30 Glucose (Glutose) 15 gm Q15M PRN PO DECREASED GLUCOSE; Start 03/14/19 at 23:30 Glucose (Glutose) 22.5 gm Q15M PRN PO DECREASED GLUCOSE; Start 03/14/19 at 23: 30 Dextrose (D50w Syringe) 25 ml Q15M PRN IV DECREASED GLUCOSE; Start 03/14/19 at 23:30 Dextrose (D50w Syringe) 50 ml Q15M PRN IV DECREASED GLUCOSE; Start 03/14/19 at 23:30 Glucagon (Glucagen) 1 mg Q15M PRN IM DECREASED GLUCOSE; Start 03/14/19 at 23:30 Glucose (Glutose) 15 gm Q15M PRN BUCCAL DECREASED GLUCOSE; Start 03/14/19 at 23:30 Enoxaparin Sodium (Lovenox) 30 mg DAILY SC Last administered on 03/18/19 08:28; Admin Dose 30 MG; Start 03/16/19 at 09:00 Metoprolol Tartrate (Lopressor) 25 mg BID PO Last administered on 03/18/19at 08:20; Admin Dose 25 MG; Start 03/15/19 at 21:00 Insulin Aspart (Novolog Insulin Pen) 20 unit AC LUNCH SC Last administered on 03/18/19at 12:25; Admin Dose 20 UNIT; Start 03/16/19 at 11:30 ELKIN MEDRANO MD March 18, 2019 16:30
[2019-03-18] MEDS ORDERED: NOVO3I SC (17:38)
[2019-03-18] MEDS ORDERED: METO-448 PO (17:38)
[2019-03-18] MEDS ORDERED: Insulin Glargine SC (17:38)
--- NOTE | 2019-03-19 00:40 | DS ---
Date/Time of Note Date/Time of Note DATE: 03/19/19 TIME: 00:30 Discharge Summary Admission/Discharge Info Admit Date/Time March 14, 2019 at 19:31 Discharge Date/Time March 18, 2019 at 19:33 Patient Condition: Stable Hx of Present Illness Patient is a 83-year-old female with complains of palpitations and increased heart rate which has been going for few days. Patient with history of hypertension and diabetes. The patient was seen in PMD office and sent to emergency room. She denies chest pain. She has been feeling worse at night and has lots of sweating. She has no cough. Patient stated she recently flew from [place] and was on the plane for hours. Hospital Course -Palpitations, tachycardia, resolved, rule out acute coronary syndrome, troponin is negative x3, 2D echo with preserved ejection fraction. Dr. Jensen is following in cardiology consultation. -Acute kidney injury, continue IV fluids, monitor BUN and creatinine, Dr. Alcocer is following in nephrology consultation. -Diabetes mellitus type 2 with hemoglobin A1c 8.6 and hyperglycemia on admission, continue Lantus and NovoLog. 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 S/p eval by Dr Shaw, hematology. Plan of care discussed with Dr. Carrillo. Home Meds Active Scripts Insulin Aspart* (Novolog Insulin Pen*) 100 Unit/Ml Soln, 20 UNIT SC AC E for 30 Days Prov:ANGELA PORTILLO 03/18/19 [Insulin Glargine] 100 UNITS/ML SOLN No Conflict Check, 58 UNITS SC DAILY@1999 for 30 Days Prov:ANGELA PORTILLO 03/18/19 Metoprolol Tartrate* (Lopressor*) 25 Mg Tab, 25 MG PO BID for 30 Days, TAB Prov:ANGELA PORTILLO 03/18/19 Atorvastatin Calcium* (Atorvastatin Calcium*) 20 Mg Tab, 20 MG PO HS, #30 Prov:CATIE CARRILLO MD 08/29/14 Aspirin* (Aspirin* EC) 81 Mg Tabec, 81 MG PO DAILY, #30 Prov:CATIE CARRILLO MD 08/29/14 Reported Medications Amlodipine Besylate* (Amlodipine Besylate*) 10 Mg Tablet, 10 MG PO DAILY, TAB 08/25/14 Valsartan* (Diovan*) 320 Mg Tablet, 320 MG PO DAILY, TAB 08/25/14 Hydrochlorothiazide* (Hydrochlorothiazide*) 25 Mg Tab, 25 MG PO DAILY, TAB 08/25/14 Discontinued Scripts Hydrocodone Bit-Acetaminophen* ([place]*) 5-325 Mg Tab, 1 TAB PO Q6 PRN for PAIN, #7 TAB Prov:AYAN MEZA PA-C 05/26/16 Follow-up Plan Follow-up with PMD in 1 week, BMP at PMD office in 1 week. Primary Care Provider Catie Carrillo MD Time spent on discharge: > 30 minutes Pending Labs Laboratory Tests Test 03/18/19 07:41 03/18/19 12:19 Bedside Glucose 92 mg/dL (70-220) 94 mg/dL (70-220) ANGELA PORTILLO March 19, 2019 00:40
== END 2019-03-18 17:39 | disposition home or self-care (01) | DRG 309 ==
LOC: E/R 15:47 → 6WM 19:31 → INTOOBSV 19:31 → OBSVTOIN 19:31 → UNDODISIN 03-18 19:33
PROVIDERS: ADMIT Internal Medicine; ATTEND Internal Medicine
DX: R00.0 Tachycardia, unspecified (principal); N17.9 Acute kidney failure, unspecified; E11.65 Type 2 diabetes mellitus with hyperglycemia; I10 Essential (primary) hypertension; Z87.891 Personal history of nicotine dependence; R07.9 Chest pain, unspecified; D64.9 Anemia, unspecified; Z86.11 Personal history of tuberculosis
CPT/HCPCS: 36415; 71045; 71250; 80048; 80061; 82550; 82553; 82962; 83036; 83735; 84439; 84443; 84484; 85025; 86803; 87340; 93005; 93306; 93970; 99217; G0378; J1650; J1815; J1956

== ENCOUNTER 2019-04-07 16:01 | Inpatient (IN) | payer MEDICARE, OTHER ==
[~2019-04-07] VITALS: Ht 134.6 cm; Wt 72.8 kg
[~2019-04-07 16:01] MED LIST changes: -HYDR-3498 PO; +Insulin Glargine SC; +METO-448 PO; +NOVO3I SC
--- NOTE | 2019-04-07 17:48 | ERD ---
ER Documentation Chief Complaint Chief Complaint HEADACHE X 2 DAYS HPI The patient is a 83-year-old female, presenting to the ER because of frontal headache intermittently for 1 to 2 days, had similar symptoms previously, under a lot of stress, denies blurred vision, fever, chills, neck pain, chest pain, dyspnea, abdominal pain, vomiting, dizzy, diarrhea. She does not smoke nor drink Past medical history hypertension, diabetes mellitus, dyslipidemia Surgical history: Eye surgery ROS All systems reviewed and are negative except as per history of present illness. Medications Home Meds Active Scripts Insulin Aspart* (Novolog Insulin Pen*) 100 Unit/Ml Soln, 20 UNIT SC AC E for 30 Days Prov:ANGELA PORTILLO 03/18/19 [Insulin Glargine] 100 UNITS/ML SOLN No Conflict Check, 58 UNITS SC DAILY@2000 for 30 Days Prov:ANGELA PORTILLO 03/18/19 Metoprolol Tartrate* (Lopressor*) 25 Mg Tab, 25 MG PO BID for 30 Days, TAB Prov:ANGELA PORTILLO 03/18/19 Atorvastatin Calcium* (Atorvastatin Calcium*) 20 Mg Tab, 20 MG PO HS, #30 Prov:CATIE CARRILLO MD 08/29/14 Aspirin* (Aspirin* EC) 81 Mg Tabec, 81 MG PO DAILY, #30 Prov:CATIE CARRILLO MD 08/29/14 Reported Medications Amlodipine Besylate* (Amlodipine Besylate*) 10 Mg Tablet, 10 MG PO DAILY, TAB 08/25/14 Valsartan* (Diovan*) 320 Mg Tablet, 320 MG PO DAILY, TAB 08/25/14 Hydrochlorothiazide* (Hydrochlorothiazide*) 25 Mg Tab, 25 MG PO DAILY, TAB 08/25/14 Allergies Allergies: Coded Allergies: No Known Allergy (Unverified , 08/25/14) PMhx/Soc History of Surgery: Yes (Rene Cataract removal) Anesthesia Reaction: No Hx Neurological Disorder: No Hx Respiratory Disorders: No Hx Psychiatric Problems: No Hx Miscellaneous Medical Probl: No Hx Alcohol Use: No Hx Substance Use: No Hx Tobacco Use: No Physical Exam Vitals Vital Signs Date Temp Pulse Resp B/P (MAP) Pulse Ox O2 O2 Flow FiO2 Time Delivery Rate 04/07/19 72 20 140/62 95 Room Air 18:30 (88) 04/07/19 98.2 77 18 139/65 97 16:27 (89) Physical Exam Const: No acute distress. Head: Atraumatic. Eyes: Normal Conjunctiva. ENT: Normal External Ears, Nose and Mouth. Neck: Full range of motion. No meningismus. Resp: Clear to auscultation bilaterally. Cardio: Regular rate and rhythm. Abd: Soft, non distended, normal bowel sounds, non tender. Skin: No petechiae or rashes. Back: No midline or flank tenderness. Ext: No cyanosis, or edema. Neur: Awake and alert. No focal deficit Psych: Normal Mood and Affect. 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 Headache TECHNIQUE: CT of the head was performed without IV contrast. Coronal and sagittal reformatted images were obtained from the axial source images. Images were reviewed on a high-resolution PACS workstation. DICOM images are available. Dose information: The estimated radiation dose (CTDIvol mGy) for each series in this exam is 39. The estimated cumulative dose (DLP mGy-cm) is 600th. One or more of the following dose reduction techniques were used: - Automated exposure control. - Adjustment of the mA and/or kV according to patient size. - Use of iterative reconstruction technique. COMPARISON: None available. FINDINGS: BRAIN PARENCHYMA: Negative for evidence of acute intraparenchymal hemorrhage, mass effect or large territory infarct. Schmidt-white matter differentiation is maintained. Mild cerebral tissue loss. VENTRICLES AND EXTRA-AXIAL SPACES: Prominence of the ventricles proportionate to the sulci in keeping with cerebral tissue loss. Midline is central. Basal cisterns are normal. No abnormal extra-axial fluid collections are identified. Negative for evidence of acute subarachnoid or extra-axial hemorrhage. VASCULATURE: Mild intracranial atherosclerosis. VISUALIZED PARANASAL SINUSES AND MASTOID AIR CELLS: Visualized paranasal sinuses: Clear where visualized. Mastoid air cells: Clear. BONES: No focal abnormality. SCALP: There are multiple sclerotic bone lesions in the calvarium superimposed on osteoporosis. Additional comment: None. IMPRESSION: 1. Negative for evidence of acute intracranial hemorrhage or significant mass effect. Negative for CT evidence of acute large territory vascular infarct. If there is concern for recent ischemia, consider MRI brain for further evaluation. 2. Mild diffuse cerebral tissue loss and mild intracranial atherosclerosis. 3. Multiple sclerotic bone lesions in the calvarium are concerning for metastatic disease in the appropriate clinical setting. Differential diagnosis includes metabolic bone disease such as hyperparathyroidism or Paget's disease or hematologic malignancy. Suggest further evaluation with MRI. Findings were discussed with Dr Gómez by Dr. Brooke Crespo on April 07, 2019 at 7:55 pm [facility]. RPTAT: HCTS Physician Neftali Date Time Electronically viewed and signed by Mandie Crespo Physician on 04/07/2019 19:57 CS/ CC: DAT GÓMEZ MD [phone] [facility] pending MEDICAL MAKING DECISION: The patient is a 83-year-old female, presenting with multiple sclerotic bone lesion in the calvarium, concerning for metastatic disease. She will be admitted for further evaluation The differential diagnoses considered include but are not limited to subarachnoid hemorrhage, occult trauma, CVA, meningitis, encephalitis, hypertension, tension, migraine, cluster, narcotic withdrawal, cervical spine disease. Departure Diagnosis: Primary Impression: Headache Condition: Stable Comments I discussed the findings with the patient. I discussed the patient with Dr Van at 8:20p , who was made aware of the lab, the treatment, the patient condition, pending labs. The patient is admitted to [place] for further evaluation Disclaimer: Inadvertent spelling and grammatical errors are likely due to EHR/dictation software use and do not reflect on the overall quality of patient care. Also, please note that the electronic time recorded on this note does not necessarily reflect the actual time of the patient encounter. DAT GÓMEZ MD Apr 07, 2019 17:48
[2019-04-07 21:20] VITALS: BP 158/71; RESP 18
[2019-04-07 22:00] VITALS: Ht 134.6 cm; Wt 72.8 kg
[2019-04-07] MEDS ORDERED: NOVO3I SC ×2 (22:15)
[2019-04-07] MEDS ORDERED: LOSA100T15 PO (22:15)
[2019-04-07] MEDS ORDERED: METF500T24 PO (22:15)
[2019-04-07] MEDS ORDERED: LEVO50TA7 PO (22:15)
[2019-04-07] MEDS ORDERED: GABA300S PO (22:15)
[2019-04-07] MEDS ORDERED: FURO20TA3 PO (22:15)
[2019-04-07] MEDS ORDERED: FENO145T37 PO (22:15)
[2019-04-07] MEDS ORDERED: PANT40TA4 PO (22:15)
[2019-04-07] MEDS ORDERED: HYDR-3672 PO (22:15)
[2019-04-07] MEDS ORDERED: ACETAMINOPHEN 325 MG TAB PO PRN (22:30)
[2019-04-07] MEDS: HYDROCODONE/APAP (5/325) TAB PO PRN (22:49)
[2019-04-07] MEDS ORDERED: GLUCOSE GEL 15 GRAM TUBE PO PRN ×2 (23:00)
[2019-04-07] MEDS ORDERED: SOD CHLORIDE 0.9% 1,000 ML IV SCH (23:00)
[2019-04-07] MEDS ORDERED: DEXTROSE 50% 50 ML SYRINGE IV PRN ×2 (23:00)
[2019-04-07] MEDS ORDERED: GLUCAGON 1 MG INJ IM PRN (23:00)
[2019-04-07] MEDS ORDERED: GLUCOSE GEL 15 GRAM TUBE BUCCAL PRN (23:00)
[2019-04-08] MEDS: ACCU-CHEK XX SCH ×5 (01:30→20:39)
[2019-04-08 02:30] VITALS: BP 142/64; PULSE 79; RESP 19
[2019-04-08] MEDS: LEVOTHYROXINE 50 MCG TAB PO SCH (06:09)
[2019-04-08] MEDS: PANTOPRAZOLE (EC) 40 MG TAB PO SCH (06:09)
[2019-04-08 07:25] VITALS: BP 146/74; PULSE 77; RESP 15
[2019-04-08] MEDS: GABAPENTIN 300 MG CAP PO SCH ×2 (08:41→20:30)
[2019-04-08] MEDS: FENOFIBRATE 145 MG TAB PO SCH (08:41)
[2019-04-08] MEDS: METOPROLOL 25 MG TAB PO SCH ×2 (08:42→20:30)
[2019-04-08] MEDS: ASPIRIN (EC) 81 MG TAB PO SCH (08:42)
[2019-04-08] MEDS: AMLODIPINE 10 MG TAB PO SCH (08:42)
[2019-04-08] MEDS: LOSARTAN 50 MG TAB PO SCH (08:43)
[2019-04-08] MEDS: INSULIN ASPART [NOVOLOG] 3 ML PEN SC SCH ×3 (08:45→17:03)
[2019-04-08 13:04] VITALS: BP 128/58; PULSE 74; RESP 18
--- NOTE | 2019-04-08 15:07 | HP ---
Date/Time of Note Date/Time of Note DATE: 04/08/19 TIME: 15:02 Assessment/Plan VTE Prophylaxis Risk score (from Ns)>0 risk: 5 SCD applied (from Ns): Yes Pharmacological prophylaxis: LMWH Lines/Catheters IV Catheter Type (from [facility] Peripheral IV Urinary Cath still in place: No Assessment/Plan Assessment/Plan -Severe headache -Multiple sclerotic bone lesions in the calvarium are concerning for metastatic disease per CT of the brain. Dr. Shaw is asked to see patient in oncology consultation -Diabetes mellitus type 2, continue Lantus and NovoLog. 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 Further recommendations based on clinical course. Plan of care discussed with Dr. Romero. Result Diagram: 04/07/19201704/08/19 0711 Results 24hrs Laboratory Tests Test 04/07/19 20:18 04/07/19 21:31 04/08/19 07:11 04/08/19 08:41 White Blood Count 9.5 # Red Blood Count 3.84 L Hemoglobin 10.5 L Hematocrit 33.6 L Mean Corpuscular 87.5 Volume Mean Corpuscular 27.3 L Hemoglobin Mean Corpuscular 31.3 L Hemoglobin Concent Red Cell 14.4 Distribution Width Platelet Count 270 Mean Platelet Volume 9.6 Immature 0.400 Granulocytes % Neutrophils % 69.6 Lymphocytes % 19.3 Monocytes % 8.2 Eosinophils % 2.0 Basophils % 0.5 Nucleated Red Blood 0.0 Cells % Immature 0.040 H Granulocytes # Neutrophils # 6.6 Lymphocytes # 1.8 Monocytes # 0.8 Eosinophils # 0.2 Basophils # 0.1 Nucleated Red Blood 0.0 Cells # Sodium Level 134 L 137 Potassium Level 4.7 4.5 Chloride Level 94 L 99 Carbon Dioxide Level 30 31 Anion Gap 10 7 Blood Urea Nitrogen 31 H 28 H Creatinine 1.53 H 1.33 H Est Glomerular Filtrat Rate mL/min Glucose Level 147 196 Calcium Level 8.6 8.6 Bedside Glucose 169 187 Total Bilirubin 0.3 Direct Bilirubin 0.00 Indirect Bilirubin 0.3 Aspartate Amino 25 Transf (AST/SGOT) Alanine 20 Aminotransferase (AL T/SGPT) Alkaline Phosphatase 61 Total Protein 7.2 Albumin 3.8 Globulin 3.40 H Albumin/Globulin 1.11 Ratio Test 04/08/19 12:55 Bedside Glucose 120 HPI/ROS Admit Date/Time Admit Date/Time Apr 07, 2019 at 20:18 Hx of Present Illness The patient is 83-year-old female with history of hypertension, hyperlipidemia, diabetes mellitus type 2. Patient presented to the emergency room due to frontal intermittent headache for last couple of days. Patient denies any blurred vision denies fever chills denies neck pain chest pain denies shortness of breath abdominal pain denies nausea vomiting diarrhea. Patient underwent CT of the brain which revealed multiple sclerotic bone lesions in the calvarium, concerning for metastatic disease. Patient is admitted for pain management and further evaluation. ROS 12 point review of systems negative except for what mentioned in HPI PMH/Family/Social Past Medical History Medical History: diabetes, high cholesterol, hypertension Medications Current Medications Acetaminophen (Tylenol Tab) 650 mg Q4H PRN PO MILD PAIN(1-3)OR ELEVATED TEMP; Start 04/07/19 at 22:30 Acetaminophen/ Hydrocodone Bitart ([place] (5/325)) 1 tab Q4H PRN PO MODERATE PAIN LEVEL 4-6 Last administered on 04/07/19at 22:49; Admin Dose 1 TAB; Start 04/07/19 at 22:30 Diagnostic Test (Pha) (Accu-Chek) 1 ea 02 XX ; Start 04/08/19 at 02:00 Insulin Glargine (Lantus) 50 units DAILY@2000 SC ; Start 04/08/19 at 20:00 Miscellaneous Information 1 ea NOTE XX ; Start 04/07/19 at 23:00 Glucose (Glutose) 15 gm Q15M PRN PO DECREASED GLUCOSE; Start 04/07/19 at 23:00 Glucose (Glutose) 22.5 gm Q15M PRN PO DECREASED GLUCOSE; Start 04/07/19 at 23:00 Dextrose (D50w Syringe) 25 ml Q15M PRN IV DECREASED GLUCOSE; Start 04/07/19 at 23:00 Dextrose (D50w Syringe) 50 ml Q15M PRN IV DECREASED GLUCOSE; Start 04/07/19 at 23:00 Glucagon (Glucagen) 1 mg Q15M PRN IM DECREASED GLUCOSE; Start 04/07/19 at 23:00 Glucose (Glutose) 15 gm Q15M PRN BUCCAL DECREASED GLUCOSE; Start 04/07/19 at 23:00 Insulin Aspart (Novolog Insulin Pen) 24 unit WITH BREAKFAST SC Last administered on 04/08/19 08:45; Admin Dose 24 UNIT; Start 04/08/19 at 08:00 Insulin Aspart (Novolog Insulin Pen) 24 unit WITH LUNCH SC Last administered on 04/08/19 12:57; Admin Dose 24 UNIT; Start 04/08/19 at 12:00 Insulin Aspart (Novolog Insulin Pen) 20 unit WITH DINNER SC ; Start 04/08/19 at 18:00 Amlodipine Besylate (Norvasc) 10 mg DAILY PO Last administered on 04/08/19 08:42; Admin Dose 10 MG; Start 04/08/19 at 09:00 Aspirin (Halfprin) 81 mg DAILY PO Last administered on 04/08/19 08:42; Admin Dose 81 MG; Start 04/08/19 at 09:00 Atorvastatin Calcium (Lipitor) 20 mg HS PO ; Start 04/08/19 at 21:00 Fenofibrate (Tricor) 145 mg DAILY PO Last administered on 04/08/19 08:41; Admin Dose 145 MG; Start 04/08/19 at 09:00 Gabapentin (Neurontin) 300 mg BID PO Last administered on 04/08/19 08:41; Admin Dose 300 MG; Start 04/08/19 at 09:00 Hydralazine HCl (Apresoline) 50 mg TID PO Last administered on 04/08/19 13:04; Admin Dose 50 MG; Start 04/08/19 at 09:00 Levothyroxine Sodium (Synthroid) 50 mcg BEFORE BREAKFAST PO Last administered on 04/08/19 06:09; Admin Dose 50 MCG; Start 04/08/19 at 07:00 Losartan Potassium (Cozaar) 100 mg DAILY PO Last administered on 04/08/19 08:43; Admin Dose 100 MG; Start 04/08/19 at 09:00 Metformin HCl (Glucophage) 500 mg WITH BREAKFAST DINNE PO ; Start 04/08/19 at 18:00; Status Hold Metoprolol Tartrate (Lopressor) 25 mg BID PO Last administered on 04/08/19 08:42; Admin Dose 25 MG; Start 04/08/19 at 09:00 Pantoprazole (Protonix Tab) 40 mg AC BREAKFAST PO Last administered on 6/18/19at 06:09; Admin Dose 40 MG; Start 04/08/19 at 07:00 Diagnostic Test (Pha) (Accu-Chek) 1 ea AC MEALS AND BEDTIME XX ; Start 04/08/19 at 07:00 Furosemide (Lasix) 20 mg DAILY IV ; Start 04/09/19 at 09:00 Enoxaparin Sodium (Lovenox) 30 mg DAILY SC ; Start 04/09/19 at 09:00 Coded Allergies: No Known Allergy (Unverified , 04/07/19) Past Surgical History Past Surgical Hx: other (Status post bilateral cataract surgery) Family History Significant Family History: no pertinent family hx Social History Alcohol Use: none Smoking Status: Former smoker Drug Use: none Exam/Review of Systems Vital Signs Vitals Vital Signs Date Temp Pulse Resp B/P (MAP) Pulse Ox O2 O2 Flow FiO2 Time Delivery Rate 04/08/19 98.6 74 18 128/58 91 Room Air 13:04 (81) Intake and Output 04/07/19 04/07/19 04/08/19 1515:00 23:00 07:00 IntakeIntake Total 250 ml BalanceBalance 250 ml Exam Constitutional: alert, oriented Head: normocephalic Neck: supple Respiratory: clear to auscultation Cardiovascular: nl pulses Gastrointestinal: soft, non-tender Musculoskeletal: nl extremities to inspection Extremities: normal pulses Neurological: nl mental status Skin: nl ANGELA Martinez Apr 08, 2019 15:07
[2019-04-08] MEDS ORDERED: metFORMIN 500 MG TAB PO SCH (18:00)
[2019-04-08 19:44] VITALS: BP 169/71; PULSE 80; RESP 18
[2019-04-08] MEDS: ATORVASTATIN 20 MG TAB PO SCH (20:29)
[2019-04-08] MEDS: INSULIN GLARGINE [LANTus] (100 UNITS/ML) SYG SC SCH (20:31)
[2019-04-08] MEDS ORDERED: INSULIN GLARGINE [LANTus] (100 UNITS/ML) SYG SC ONE (21:00)
[2019-04-08] MEDS: SENNA TAB PO SCH (22:54)
[2019-04-09 01:40] VITALS: BP 146/67; PULSE 75; RESP 18
[2019-04-09] MEDS: ACCU-CHEK XX SCH ×5 (02:00→20:50)
[2019-04-09] MEDS: LEVOTHYROXINE 50 MCG TAB PO SCH (06:08)
[2019-04-09] MEDS: PANTOPRAZOLE (EC) 40 MG TAB PO SCH (06:08)
[2019-04-09 08:00] VITALS: BP 162/70; PULSE 69; RESP 18
[2019-04-09] MEDS: SENNA TAB PO SCH ×2 (08:30→20:30)
[2019-04-09] MEDS: ASPIRIN (EC) 81 MG TAB PO SCH (08:30)
[2019-04-09] MEDS: FENOFIBRATE 145 MG TAB PO SCH (08:30)
[2019-04-09] MEDS: AMLODIPINE 10 MG TAB PO SCH (08:30)
[2019-04-09] MEDS: METOPROLOL 25 MG TAB PO SCH ×2 (08:30→20:31)
[2019-04-09] MEDS: LOSARTAN 50 MG TAB PO SCH (08:31)
[2019-04-09] MEDS: FUROSEMIDE 20 MG INJ IV SCH (08:31)
[2019-04-09] MEDS: GABAPENTIN 300 MG CAP PO SCH ×2 (08:31→20:31)
[2019-04-09] MEDS: HYDROCODONE/APAP (5/325) TAB PO PRN (08:32)
[2019-04-09] MEDS: INSULIN ASPART [NOVOLOG] 3 ML PEN SC SCH ×3 (08:34→17:13)
[2019-04-09] MEDS: ENOXAPARIN 30 MG/0.3 ML SYG SC SCH (08:34)
--- NOTE | 2019-04-09 11:37 | CONS ---
Assessment/Plan Assessment/Plan Hospital Course (Demo Recall) 83 YO ADMITTED WITH frontal intermittent headache for last couple of days. IMAGING SHOWED SCLEROTIC SKULL LESIONS ON CT HEAD, MRI BRAIN, SUSPICIOUS FOR MARROW INFILTRATIVE PROCESS -recommend w/u for myeloma: check SPEP/immunofixation/ quantitative immunoglobulins -I had ordered skeletal survey but will wait to perform until above workup is back -the nodule seen on CT chest was described as stable by Dr Gorman and therefore felt to be of benign etiology, will cancel lung biopsy -check CT AP for full staging Consultation Date/Type/Reason Admit Date/Time Apr 07, 2019 at 20:18 Date/Time of Note DATE: 04/09/19 TIME: 11:02 83-year-old female with history of hypertension, hyperlipidemia, diabetes mellitus type 2. Patient presented to the emergency room due to frontal intermittent headache for last couple of days. Patient denies any blurred vision denies fever chills denies neck pain chest pain denies shortness of breat h abdominal pain denies nausea vomiting diarrhea. Patient underwent CT of the brain which revealed multiple sclerotic bone lesions in the calvarium, concerning for metastatic disease. Imaging done so far: CT chest: 1. A 1.6 cm irregularly marginated nodule in the left upper lobe concerning for malignancy. Several additional smaller nodules in bilateral lungs. Recommend PET-CT for further evaluation. This nodule is amendable to CT guided biopsy if needed. 2. Soft tissue density around the lingular segment bronchus causing partial obstruction with postobstructive atelectasis. MRI brain: 1. No acute intracranial pathology. 2. Mild volume loss with mild chronic microvascular ischemic changes. 2. Diffuse heterogeneous signal in the marrow and is once again seen which may represent a neoplastic process such as osseous metastatic disease. Other possibilities include a metabolic process as well as with marrow conversion. Past Medical History Medical History: diabetes, high cholesterol, hypertension Home Meds Active Scripts [Insulin Glargine] 100 UNITS/ML SOLN No Conflict Check, 58 UNITS SC DAILY@1999 for 30 Days Prov:ANGELA PORTILLO 03/18/19 Metoprolol Tartrate* (Lopressor*) 25 Mg Tab, 25 MG PO BID for 30 Days, TAB Prov:ANGELA PORTILLO 03/18/19 Atorvastatin Calcium* (Atorvastatin Calcium*) 20 Mg Tab, 20 MG PO HS, #30 Prov:CATIE CARRILLO MD 08/29/14 Aspirin* (Aspirin* EC) 81 Mg Tabec, 81 MG PO DAILY, #30 Prov:CATIE CARRILLO MD 08/29/14 Reported Medications Pantoprazole* (Pantoprazole*) 40 Mg Tablet.dr, 40 MG PO AC BREAKFAST, TAB 04/07/19 Metformin Hcl* (Metformin Hcl*) 500 Mg Tablet, 500 MG PO WITH BREAKFAST DINNE, #30 TAB 04/07/19 Losartan Potassium* (Losartan Potassium*) 100 Mg Tablet, 100 MG PO DAILY, TAB 04/07/19 Levothyroxine Sodium* (Levothyroxine Sodium*) 50 Mcg Tablet, 50 MCG PO BEFORE BREAKFAST, #30 TAB 04/07/19 Hydralazine Hcl* (Hydralazine Hcl*) 50 Mg Tab, 50 MG PO TID, #90 TAB 04/07/19 Gabapentin (GABAPENTIN) 300 Mg/6 Ml Solution, 300 MG PO BID 04/07/19 Fenofibrate Nanocrystallized* (Fenofibrate*) 145 Mg Tablet, 145 MG PO DAILY, TAB 04/07/19 Furosemide* (Furosemide*) 20 Mg Tablet, 20 MG PO DAILY, #60 TAB 04/07/19 Insulin Aspart* (Novolog Insulin Pen*) 100 Unit/Ml Soln, 20 UNIT SC Dinner, EA 04/07/19 Insulin Aspart* (Novolog Insulin Pen*) 100 Unit/Ml Soln, 24 UNIT SC WITH BREAKFAST LUNCH, EA 04/07/19 Amlodipine Besylate* (Amlodipine Besylate*) 10 Mg Tablet, 10 MG PO DAILY, TAB 08/25/14 Discontinued Reported Medications Valsartan* (Diovan*) 320 Mg Tablet, 320 MG PO DAILY, TAB 08/25/14 Hydrochlorothiazide* (Hydrochlorothiazide*) 25 Mg Tab, 25 MG PO DAILY, TAB 08/25/14 Medications Current Medications Acetaminophen (Tylenol Tab) 650 mg Q4H PRN PO MILD PAIN(1-3)OR ELEVATED TEMP; Start 04/07/19 at 22:30 Acetaminophen/ Hydrocodone Bitart ([place] (5/325)) 1 tab Q4H PRN PO MODERATE PAIN LEVEL 4-6 Last administered on 04/09/19at 08:32; Admin Dose 1 TAB; Start 04/07/19 at 22:30 Diagnostic Test (Pha) (Accu-Chek) 1 ea 02 XX ; Start 04/08/19 at 02:00 Insulin Glargine (Lantus) 50 units DAILY@2000 SC Last administered on 04/08/19at 20:31; Admin Dose 50 UNITS; Start 04/08/19 at 20:00 Miscellaneous Information 1 ea NOTE XX ; Start 04/07/19 at 23:00 Glucose (Glutose) 15 gm Q15M PRN PO DECREASED GLUCOSE; Start 04/07/19 at 23:00 Glucose (Glutose) 22.5 gm Q15M PRN PO DECREASED GLUCOSE; Start 04/07/19 at 23:00 Dextrose (D50w Syringe) 25 ml Q15M PRN IV DECREASED GLUCOSE; Start 04/07/19 at 23:00 Dextrose (D50w Syringe) 50 ml Q15M PRN IV DECREASED GLUCOSE; Start 04/07/19 at 23:00 Glucagon (Glucagen) 1 mg Q15M PRN IM DECREASED GLUCOSE; Start 04/07/19 at 23:00 Glucose (Glutose) 15 gm Q15M PRN BUCCAL DECREASED GLUCOSE; Start 04/07/19 at 23:00 Insulin Aspart (Novolog Insulin Pen) 24 unit WITH BREAKFAST SC Last administered on 04/09/19at 08:34; Admin Dose 24 UNIT; Start 04/08/19 at 08:00 Insulin Aspart (Novolog Insulin Pen) 24 unit WITH LUNCH SC Last administered on 04/08/19at 12:57; Admin Dose 24 UNIT; Start 04/08/19 at 12:00 Insulin Aspart (Novolog Insulin Pen) 20 unit WITH DINNER SC Last administered on 04/08/19at 17:03; Admin Dose 20 UNIT; Start 04/08/19 at 18:00 Amlodipine Besylate (Norvasc) 10 mg DAILY PO Last administered on 04/09/19at 08:30; Admin Dose 10 MG; Start 04/08/19 at 09:00 Aspirin (Halfprin) 81 mg DAILY PO Last administered on 04/09/19 08:30; Admin Dose 81 MG; Start 04/08/19 at 09:00 Atorvastatin Calcium (Lipitor) 20 mg HS PO Last administered on 04/08/19at 20:29; Admin Dose 20 MG; Start 04/08/19 at 21:00 Fenofibrate (Tricor) 145 mg DAILY PO Last administered on 04/09/19 08:30; Admin Dose 145 MG; Start 04/08/19 at 09:00 Gabapentin (Neurontin) 300 mg BID PO Last administered on 04/09/19 08:31; Admin Dose 300 MG; Start 04/08/19 at 09:00 Hydralazine HCl (Apresoline) 50 mg TID PO Last administered on 04/09/19 08:31; Admin Dose 50 MG; Start 04/08/19 at 09:00 Levothyroxine Sodium (Synthroid) 50 mcg BEFORE BREAKFAST PO Last administered on 04/09/19 06:08; Admin Dose 50 MCG; Start 04/08/19 at 07:00 Losartan Potassium (Cozaar) 100 mg DAILY PO Last administered on 04/09/19 08:31; Admin Dose 100 MG; Start 04/08/19 at 09:00 Metformin HCl (Glucophage) 500 mg WITH BREAKFAST DINNE PO ; Start 04/08/19 at 18:00; Status Hold Metoprolol Tartrate (Lopressor) 25 mg BID PO Last administered on 04/09/19 08:30; Admin Dose 25 MG; Start 04/08/19 at 09:00 Pantoprazole (Protonix Tab) 40 mg AC BREAKFAST PO Last administered on 04/09/19 06:08; Admin Dose 40 MG; Start 04/08/19 at 07:00 Diagnostic Test (Pha) (Accu-Chek) 1 ea AC MEALS AND BEDTIME XX ; Start 04/08/19 at 07:00 Furosemide (Lasix) 20 mg DAILY IV Last administered on 04/09/19 08:31; Admin Dose 20 MG; Start 04/09/19 at 09:00 Enoxaparin Sodium (Lovenox) 30 mg DAILY SC Last administered on 04/09/19 08:34; Admin Dose 30 MG; Start 04/09/19 at 09:00 Senna (Senokot) 1 tab BID PO Last administered on 04/09/19 08:30; Admin Dose 1 TAB; Start 04/08/19 at 22:00 Allergies: Coded Allergies: No Known Allergy (Unverified , 04/07/19) Past Surgical History Past Surgical Hx: other (Status post bilateral cataract surgery) Social History Alcohol Use: none Smoking Status: Former smoker Drug Use: none Exam/Review of Systems Exam Vitals Vital Signs Date Temp Pulse Resp B/P (MAP) Pulse Ox O2 O2 Flow FiO2 Time Delivery Rate 04/09/19 98.5 69 18 162/70 94 08:00 (100) 04/08/19 Room Air 13:04 Intake and Output 04/08/19 04/08/19 04/09/19 1515:00 23:00 07:00 IntakeIntake Total 356 ml 360 ml OutputOutput Total 725 ml BalanceBalance -369 ml 360 ml Results Result Diagram: 04/07/19201704/08/19 0711 Results 24hrs Laboratory Tests Test 04/08/19 12:55 04/08/19 17:02 04/08/19 20:29 04/09/19 08:29 Bedside Glucose 120 158 132 151 Medications Medication Current Medications Acetaminophen (Tylenol Tab) 650 mg Q4H PRN PO MILD PAIN(1-3)OR ELEVATED TEMP; Start 04/07/19 at 22:30 Acetaminophen/ Hydrocodone Bitart ([place] (5/325)) 1 tab Q4H PRN PO MODERATE PAIN LEVEL 4-6 Last administered on 04/09/19at 08:32; Admin Dose 1 TAB; Start 04/07/19 at 22:30 Diagnostic Test (Pha) (Accu-Chek) 1 ea 02 XX ; Start 04/08/19 at 02:00 Insulin Glargine (Lantus) 50 units DAILY@2000 SC Last administered on 04/08/19at 20:31; Admin Dose 50 UNITS; Start 04/08/19 at 20:00 Miscellaneous Information 1 ea NOTE XX ; Start 04/07/19 at 23:00 Glucose (Glutose) 15 gm Q15M PRN PO DECREASED GLUCOSE; Start 04/07/19 at 23:00 Glucose (Glutose) 22.5 gm Q15M PRN PO DECREASED GLUCOSE; Start 04/07/19 at 23:00 Dextrose (D50w Syringe) 25 ml Q15M PRN IV DECREASED GLUCOSE; Start 04/07/19 at 23:00 Dextrose (D50w Syringe) 50 ml Q15M PRN IV DECREASED GLUCOSE; Start 04/07/19 at 23:00 Glucagon (Glucagen) 1 mg Q15M PRN IM DECREASED GLUCOSE; Start 04/07/19 at 23:00 Glucose (Glutose) 15 gm Q15M PRN BUCCAL DECREASED GLUCOSE; Start 04/07/19 at 23:00 Insulin Aspart (Novolog Insulin Pen) 24 unit WITH BREAKFAST SC Last administered on 04/09/19 08:34; Admin Dose 24 UNIT; Start 04/08/19 at 08:00 Insulin Aspart (Novolog Insulin Pen) 24 unit WITH LUNCH SC Last administered on 04/08/19at 12:57; Admin Dose 24 UNIT; Start 04/08/19 at 12:00 Insulin Aspart (Novolog Insulin Pen) 20 unit WITH DINNER SC Last administered on 04/08/19 17:03; Admin Dose 20 UNIT; Start 04/08/19 at 18:00 Amlodipine Besylate (Norvasc) 10 mg DAILY PO Last administered on 04/09/19 08:30; Admin Dose 10 MG; Start 04/08/19 at 09:00 Aspirin (Halfprin) 81 mg DAILY PO Last administered on 04/09/19 08:30; Admin Dose 81 MG; Start 04/08/19 at 09:00 Atorvastatin Calcium (Lipitor) 20 mg HS PO Last administered on 04/08/19 20:29; Admin Dose 20 MG; Start 04/08/19 at 21:00 Fenofibrate (Tricor) 145 mg DAILY PO Last administered on 04/09/19 08:30; Admin Dose 145 MG; Start 04/08/19 at 09:00 Gabapentin (Neurontin) 300 mg BID PO Last administered on 04/09/19 08:31; Admin Dose 300 MG; Start 04/08/19 at 09:00 Hydralazine HCl (Apresoline) 50 mg TID PO Last administered on 04/09/19 08:31; Admin Dose 50 MG; Start 04/08/19 at 09:00 Levothyroxine Sodium (Synthroid) 50 mcg BEFORE BREAKFAST PO Last administered on 04/09/19 06:08; Admin Dose 50 MCG; Start 04/08/19 at 07:00 Losartan Potassium (Cozaar) 100 mg DAILY PO Last administered on 04/09/19 08:31; Admin Dose 100 MG; Start 04/08/19 at 09:00 Metformin HCl (Glucophage) 500 mg WITH BREAKFAST DINNE PO ; Start 04/08/19 at 18:00; Status Hold Metoprolol Tartrate (Lopressor) 25 mg BID PO Last administered on 04/09/19 08:30; Admin Dose 25 MG; Start 04/08/19 at 09:00 Pantoprazole (Protonix Tab) 40 mg AC BREAKFAST PO Last administered on 04/09/19 06:08; Admin Dose 40 MG; Start 04/08/19 at 07:00 Diagnostic Test (Pha) (Accu-Chek) 1 ea AC MEALS AND BEDTIME XX ; Start 04/08/19 at 07:00 Furosemide (Lasix) 20 mg DAILY IV Last administered on 04/09/19 08:31; Admin Dose 20 MG; Start 04/09/19 at 09:00 Enoxaparin Sodium (Lovenox) 30 mg DAILY SC Last administered on 04/09/19 08:34; Admin Dose 30 MG; Start 04/09/19 at 09:00 Senna (Senokot) 1 tab BID PO Last administered on 04/09/19 08:30; Admin Dose 1 TAB; Start 04/08/19 at 22:00 FENG KURTZ Apr 09, 2019 11:12
[2019-04-09] MEDS ORDERED: IOHEXOL 14.3 MG(I)/ML (ADULT) BTL PO ONE (12:00)
[2019-04-09 12:33] VITALS: BP 139/59
[2019-04-09] MEDS ORDERED: IODIXANOL LOCM 100 ML BTL ONE (14:42)
[2019-04-09] MEDS ORDERED: SOD CHLORIDE 0.9% 100 ML ONE (14:42)
[2019-04-09 14:53] VITALS: BP 129/61; PULSE 74; RESP 18
--- NOTE | 2019-04-09 17:51 | PN ---
Date/Time of Note Date/Time of Note DATE: 04/09/19 TIME: 17:49 Assessment/Plan VTE Prophylaxis Risk score (from Nsg)>0 risk: 5 SCD applied (from Nsg): Yes Pharmacological prophylaxis: LMWH Lines/Catheters IV Catheter Type (from Nrsg): Peripheral IV Urinary Cath still in place: No Assessment/Plan Hospital Course Patient is awake alert, headache is well controlled. Pending CT of the abdomen and pelvis for further evaluation. Assessment/Plan -Severe headache -Multiple sclerotic bone lesions in the calvarium are concerning for metastatic disease per CT of the brain. is following in oncology consultation -Diabetes mellitus type 2, continue Lantus and NovoLog. 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 Further recommendations based on clinical course. Plan of care discussed with Dr. Romero. Result Diagram: 04/07/19201704/08/19 0711 Results 24hrs Laboratory Tests Test 04/08/19 20:29 04/09/19 08:29 04/09/19 12:35 04/09/19 13:13 Bedside Glucose 132 151 235 H Carcinoembryonic 0.9 Antigen Immunoglobulin G 1475 Immunoglobulin A 439 H Immunoglobulin M 88 Test 04/09/19 17:09 Bedside Glucose 88 Exam/Review of Systems Exam Vitals Vital Signs Date Temp Pulse Resp B/P (MAP) Pulse Ox O2 O2 Flow FiO2 Time Delivery Rate 04/09/19 98.6 74 18 129/61 94 14:53 (83) 04/08/19 Room Air 13:04 Intake and Output 04/08/19 04/08/19 04/09/19 1515:00 23:00 07:00 IntakeIntake Total 356 ml 360 ml OutputOutput Total 725 ml BalanceBalance -369 ml 360 ml Exam Constitutional: alert, oriented Respiratory: clear to auscultation Cardiovascular: nl pulses Gastrointestinal: soft, non-tender Musculoskeletal: nl extremities to inspection Extremities: normal pulses Neurological: nl mental status Skin: nl turgor Results Results 24hrs Laboratory Tests Test 04/08/19 20:29 04/09/19 08:29 04/09/19 12:35 04/09/19 13:13 Bedside Glucose 132 151 235 H Carcinoembryonic 0.9 Antigen Immunoglobulin G 1475 Immunoglobulin A 439 H Immunoglobulin M 88 Test 04/09/19 17:09 Bedside Glucose 88 Medications Medication Current Medications Acetaminophen (Tylenol Tab) 650 mg Q4H PRN PO MILD PAIN(1-3)OR ELEVATED TEMP; Start 04/07/19 at 22:30 Acetaminophen/ Hydrocodone Bitart ([place] (5/325)) 1 tab Q4H PRN PO MODERATE PAIN LEVEL 4-6 Last administered on 04/09/19at 08:32; Admin Dose 1 TAB; Start 04/07/19 at 22:30 Diagnostic Test (Pha) (Accu-Chek) 1 ea 02 XX ; Start 04/08/19 at 02:00 Insulin Glargine (Lantus) 50 units DAILY@2000 SC Last administered on 04/08/19at 20:31; Admin Dose 50 UNITS; Start 04/08/19 at 20:00 Miscellaneous Information 1 ea NOTE XX ; Start 04/07/19 at 23:00 Glucose (Glutose) 15 gm Q15M PRN PO DECREASED GLUCOSE; Start 04/07/19 at 23:00 Glucose (Glutose) 22.5 gm Q15M PRN PO DECREASED GLUCOSE; Start 04/07/19 at 23:00 Dextrose (D50w Syringe) 25 ml Q15M PRN IV DECREASED GLUCOSE; Start 04/07/19 at 23:00 Dextrose (D50w Syringe) 50 ml Q15M PRN IV DECREASED GLUCOSE; Start 04/07/19 at 23:00 Glucagon (Glucagen) 1 mg Q15M PRN IM DECREASED GLUCOSE; Start 04/07/19 at 23:00 Glucose (Glutose) 15 gm Q15M PRN BUCCAL DECREASED GLUCOSE; Start 04/07/19 at 23:00 Insulin Aspart (Novolog Insulin Pen) 24 unit WITH BREAKFAST SC Last administered on 04/09/19at 08:34; Admin Dose 24 UNIT; Start 04/08/19 at 08:00 Insulin Aspart (Novolog Insulin Pen) 24 unit WITH LUNCH SC Last administered on 04/09/19at 12:36; Admin Dose 24 UNIT; Start 04/08/19 at 12:00 Insulin Aspart (Novolog Insulin Pen) 20 unit WITH DINNER SC Last administered on 04/09/19at 17:13; Admin Dose 20 UNIT; Start 04/08/19 at 18:00 Amlodipine Besylate (Norvasc) 10 mg DAILY PO Last administered on 04/09/19 08:30; Admin Dose 10 MG; Start 04/08/19 at 09:00 Aspirin (Halfprin) 81 mg DAILY PO Last administered on 04/09/19 08:30; Admin Dose 81 MG; Start 04/08/19 at 09:00 Atorvastatin Calcium (Lipitor) 20 mg HS PO Last administered on 04/08/19 20:29; Admin Dose 20 MG; Start 04/08/19 at 21:00 Fenofibrate (Tricor) 145 mg DAILY PO Last administered on 04/09/19 08:30; Admin Dose 145 MG; Start 04/08/19 at 09:00 Gabapentin (Neurontin) 300 mg BID PO Last administered on 04/09/19 08:31; Admin Dose 300 MG; Start 04/08/19 at 09:00 Hydralazine HCl (Apresoline) 50 mg TID PO Last administered on 04/09/19 12:37; Admin Dose 50 MG; Start 04/08/19 at 09:00 Levothyroxine Sodium (Synthroid) 50 mcg BEFORE BREAKFAST PO Last administered on 04/09/19 06:08; Admin Dose 50 MCG; Start 04/08/19 at 07:00 Losartan Potassium (Cozaar) 100 mg DAILY PO Last administered on 04/09/19 08:31; Admin Dose 100 MG; Start 04/08/19 at 09:00 Metformin HCl (Glucophage) 500 mg WITH BREAKFAST DINNE PO ; Start 04/08/19 at 18:00; Status Hold Metoprolol Tartrate (Lopressor) 25 mg BID PO Last administered on 04/09/19 08:30; Admin Dose 25 MG; Start 04/08/19 at 09:00 Pantoprazole (Protonix Tab) 40 mg AC BREAKFAST PO Last administered on 04/09/19 06:08; Admin Dose 40 MG; Start 04/08/19 at 07:00 Diagnostic Test (Pha) (Accu-Chek) 1 ea AC MEALS AND BEDTIME XX ; Start 04/08/19 at 07:00 Furosemide (Lasix) 20 mg DAILY IV Last administered on 04/09/19 08:31; Admin Dose 20 MG; Start 04/09/19 at 09:00 Enoxaparin Sodium (Lovenox) 30 mg DAILY SC Last administered on 04/09/19at 08 :34; Admin Dose 30 MG; Start 04/09/19 at 09:00 Senna (Senokot) 1 tab BID PO Last administered on 04/09/19at 08:30; Admin Dose 1 TAB; Start 04/08/19 at 22:00 ANGELA PORTILLO Apr 09, 2019 17:51
[2019-04-09 20:28] VITALS: BP 129/63; PULSE 68; RESP 18
[2019-04-09] MEDS: ATORVASTATIN 20 MG TAB PO SCH (20:30)
[2019-04-09] MEDS: INSULIN GLARGINE [LANTus] (100 UNITS/ML) SYG SC SCH (20:48)
[2019-04-10] MEDS: ACCU-CHEK XX SCH ×5 (01:24→21:23)
[2019-04-10 02:40] VITALS: BP 134/60; PULSE 68; RESP 19
[2019-04-10] MEDS: PANTOPRAZOLE (EC) 40 MG TAB PO SCH (06:06)
[2019-04-10] MEDS: LEVOTHYROXINE 50 MCG TAB PO SCH (06:06)
[2019-04-10 07:59] VITALS: BP 149/67; PULSE 73; RESP 18
[2019-04-10] MEDS: FUROSEMIDE 20 MG INJ IV SCH (08:43)
[2019-04-10] MEDS: ASPIRIN (EC) 81 MG TAB PO SCH (08:44)
[2019-04-10] MEDS: GABAPENTIN 300 MG CAP PO SCH ×2 (08:44→21:20)
[2019-04-10] MEDS: SENNA TAB PO SCH ×2 (08:44→21:00)
[2019-04-10] MEDS: FENOFIBRATE 145 MG TAB PO SCH (08:44)
[2019-04-10] MEDS: LOSARTAN 50 MG TAB PO SCH (08:44)
[2019-04-10] MEDS: METOPROLOL 25 MG TAB PO SCH ×2 (08:44→21:22)
[2019-04-10] MEDS: AMLODIPINE 10 MG TAB PO SCH (08:45)
[2019-04-10] MEDS: INSULIN ASPART [NOVOLOG] 3 ML PEN SC SCH ×3 (08:47→17:12)
[2019-04-10] MEDS: ENOXAPARIN 30 MG/0.3 ML SYG SC SCH (08:48)
[2019-04-10 14:00] VITALS: BP 141/63; PULSE 74; RESP 18
--- NOTE | 2019-04-10 17:09 | PN ---
Date/Time of Note Date/Time of Note DATE: 04/10/19 TIME: 17:06 Assessment/Plan VTE Prophylaxis Risk score (from Ns)>0 risk: 5 SCD applied (from Nsg): Yes Pharmacological prophylaxis: LMWH Lines/Catheters IV Catheter Type (from Nrs): Peripheral IV Urinary Cath still in place: No Assessment/Plan Hospital Course Patient is awake alert, denies headache, pt is undergoing oncology work up. Assessment/Plan -Severe headache -Multiple sclerotic bone lesions in the calvarium are concerning for metastatic disease per CT of the brain. is following in oncology consultation -Diabetes mellitus type 2, continue Lantus and NovoLog. 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 Further recommendations based on clinical course. Plan of care discussed with Dr. Romero. Result Diagram: 04/10/19 0609 04/10/19 0609 Results 24hrs Laboratory Tests Test 04/09/19 17:09 04/09/19 20:40 04/10/19 06:09 04/10/19 08:28 Bedside Glucose 88 132 119 White Blood Count 6.5 # Red Blood Count 3.93 L Hemoglobin 10.7 L Hematocrit 33.8 L Mean Corpuscular 86.0 Volume Mean Corpuscular 27.2 L Hemoglobin Mean Corpuscular 31.7 L Hemoglobin Concent Red Cell 14.1 Distribution Width Platelet Count 338 # Mean Platelet Volume 9.7 Immature 0.500 H Granulocytes % Neutrophils % 58.6 Lymphocytes % 24.9 Monocytes % 10.0 Eosinophils % 5.4 Basophils % 0.6 Nucleated Red Blood 0.0 Cells % Immature 0.030 Granulocytes # Neutrophils # 3.8 Lymphocytes # 1.6 Monocytes # 0.7 Eosinophils # 0.4 Basophils # 0.0 Nucleated Red Blood 0.0 Cells # Sodium Level 141 Potassium Level 4.8 Chloride Level 101 Carbon Dioxide Level 29 Anion Gap 11 Blood Urea Nitrogen 29 H Creatinine 1.40 H Est Glomerular Filtrat Rate mL/min Glucose Level 126 # Calcium Level 8.8 Test 04/10/19 12:27 Bedside Glucose 88 Exam/Review of Systems Exam Vitals Vital Signs Date Temp Pulse Resp B/P (MAP) Pulse Ox O2 O2 Flow FiO2 Time Delivery Rate 04/10/19 98.1 74 18 141/63 95 14:00 (89) 04/09/19 Room Air 20:28 Intake and Output 04/09/19 04/09/19 04/10/19 1414:59 22:59 06:59 IntakeIntake Total 680 ml 200 ml BalanceBalance 680 ml 200 ml Exam Constitutional: alert, oriented Respiratory: clear to auscultation Cardiovascular: nl pulses Gastrointestinal: soft, non-tender Musculoskeletal: nl extremities to inspection Extremities: normal pulses Neurological: nl mental status Skin: nl turgor Results Results 24hrs Laboratory Tests Test 04/09/19 17:09 04/09/19 20:40 04/10/19 06:09 04/10/19 08:28 Bedside Glucose 88 132 119 White Blood Count 6.5 # Red Blood Count 3.93 L Hemoglobin 10.7 L Hematocrit 33.8 L Mean Corpuscular 86.0 Volume Mean Corpuscular 27.2 L Hemoglobin Mean Corpuscular 31.7 L Hemoglobin Concent Red Cell 14.1 Distribution Width Platelet Count 338 # Mean Platelet Volume 9.7 Immature 0.500 H Granulocytes % Neutrophils % 58.6 Lymphocytes % 24.9 Monocytes % 10.0 Eosinophils % 5.4 Basophils % 0.6 Nucleated Red Blood 0.0 Cells % Immature 0.030 Granulocytes # Neutrophils # 3.8 Lymphocytes # 1.6 Monocytes # 0.7 Eosinophils # 0.4 Basophils # 0.0 Nucleated Red Blood 0.0 Cells # Sodium Level 141 Potassium Level 4.8 Chloride Level 101 Carbon Dioxide Level 29 Anion Gap 11 Blood Urea Nitrogen 29 H Creatinine 1.40 H Est Glomerular Filtrat Rate mL/min Glucose Level 126 # Calcium Level 8.8 Test 04/10/19 12:27 Bedside Glucose 88 Medications Medication Current Medications Acetaminophen (Tylenol Tab) 650 mg Q4H PRN PO MILD PAIN(1-3)OR ELEVATED TEMP; Start 04/07/19 at 22:30 Acetaminophen/ Hydrocodone Bitart ([place] (5/325)) 1 tab Q4H PRN PO MODERATE PAIN LEVEL 4-6 Last administered on 04/09/19at 08:32; Admin Dose 1 TAB; Start 04/07/19 at 22:30 Diagnostic Test (Pha) (Accu-Chek) 1 ea 02 XX ; Start 04/08/19 at 02:00 Insulin Glargine (Lantus) 50 units DAILY@2000 SC Last administered on 04/09/19at 20:48; Admin Dose 50 UNITS; Start 04/08/19 at 20:00 Miscellaneous Information 1 ea NOTE XX ; Start 04/07/19 at 23:00 Glucose (Glutose) 15 gm Q15M PRN PO DECREASED GLUCOSE; Start 04/07/19 at 23:00 Glucose (Glutose) 22.5 gm Q15M PRN PO DECREASED GLUCOSE; Start 04/07/19 at 23:00 Dextrose (D50w Syringe) 25 ml Q15M PRN IV DECREASED GLUCOSE; Start 04/07/19 at 23:00 Dextrose (D50w Syringe) 50 ml Q15M PRN IV DECREASED GLUCOSE; Start 04/07/19 at 23:00 Glucagon (Glucagen) 1 mg Q15M PRN IM DECREASED GLUCOSE; Start 04/07/19 at 23:00 Glucose (Glutose) 15 gm Q15M PRN BUCCAL DECREASED GLUCOSE; Start 04/07/19 at 23:00 Insulin Aspart (Novolog Insulin Pen) 24 unit WITH BREAKFAST SC Last administered on 04/10/19at 08:47; Admin Dose 24 UNIT; Start 04/08/19 at 08:00 Insulin Aspart (Novolog Insulin Pen) 24 unit WITH LUNCH SC Last administered on 04/10/19at 12:34; Admin Dose 24 UNIT; Start 04/08/19 at 12:00 Insulin Aspart (Novolog Insulin Pen) 20 unit WITH DINNER SC Last administered on 04/09/19at 17:13; Admin Dose 20 UNIT; Start 04/08/19 at 18:00 Amlodipine Besylate (Norvasc) 10 mg DAILY PO Last administered on 04/10/19at 08:45; Admin Dose 10 MG; Start 04/08/19 at 09:00 Aspirin (Halfprin) 81 mg DAILY PO Last administered on 04/10/19 08:44; Admin Dose 81 MG; Start 04/08/19 at 09:00 Atorvastatin Calcium (Lipitor) 20 mg HS PO Last administered on 04/09/19at 20:30; Admin Dose 20 MG; Start 04/08/19 at 21:00 Fenofibrate (Tricor) 145 mg DAILY PO Last administered on 04/10/19at 08:44; Admin Dose 145 MG; Start 04/08/19 at 09:00 Gabapentin (Neurontin) 300 mg BID PO Last administered on 04/10/19 08:44; Admin Dose 300 MG; Start 04/08/19 at 09:00 Hydralazine HCl (Apresoline) 50 mg TID PO Last administered on 04/10/19 13:16; Admin Dose 50 MG; Start 04/08/19 at 09:00 Levothyroxine Sodium (Synthroid) 50 mcg BEFORE BREAKFAST PO Last administered on 04/10/19 06:06; Admin Dose 50 MCG; Start 04/08/19 at 07:00 Losartan Potassium (Cozaar) 100 mg DAILY PO Last administered on 04/10/19 08:44; Admin Dose 100 MG; Start 04/08/19 at 09:00 Metformin HCl (Glucophage) 500 mg WITH BREAKFAST DINNE PO ; Start 04/08/19 at 18:00; Status Hold Metoprolol Tartrate (Lopressor) 25 mg BID PO Last administered on 04/10/19 08:44; Admin Dose 25 MG; Start 04/08/19 at 09:00 Pantoprazole (Protonix Tab) 40 mg AC BREAKFAST PO Last administered on 04/10/19 06:06; Admin Dose 40 MG; Start 04/08/19 at 07:00 Diagnostic Test (Pha) (Accu-Chek) 1 ea AC MEALS AND BEDTIME XX ; Start 04/08/19 at 07:00 Furosemide (Lasix) 20 mg DAILY IV Last administered on 04/10/19 08:43; Admin Dose 20 MG; Start 04/09/19 at 09:00 Enoxaparin Sodium (Lovenox) 30 mg DAILY SC Last administered on 04/10/19 08:48; Admin Dose 30 MG; Start 04/09/19 at 09:00 Senna (Senokot) 1 tab BID PO Last administered on 04/10/19 08:44; Admin Dose 1 TAB; Start 04/08/19 at 22:00 ANGELA PORTILLO Apr 10, 2019 17:09
[2019-04-10 20:55] VITALS: BP 144/67; PULSE 72; RESP 18
[2019-04-10] MEDS: INSULIN GLARGINE [LANTus] (100 UNITS/ML) SYG SC SCH (21:19)
[2019-04-10] MEDS: ATORVASTATIN 20 MG TAB PO SCH (21:23)
[2019-04-11 01:49] VITALS: BP 122/59; PULSE 71; RESP 18
[2019-04-11] MEDS: ACCU-CHEK XX SCH ×5 (02:56→21:01)
--- NOTE | 2019-04-11 04:33 | PN ---
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 is following in oncology consultation -Diabetes mellitus type 2, continue Lantus and NovoLog. 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 Further recommendations based on clinical course. Plan of care discussed with Dr. Romero. Result Diagram: 04/10/19 0609 04/10/19 0609 Results 24hrs Laboratory Tests Test 04/10/19 06:09 04/10/19 08:28 04/10/19 12:27 04/10/19 17:06 White Blood Count 6.5 # Red Blood Count 3.93 L Hemoglobin 10.7 L Hematocrit 33.8 L Mean Corpuscular 86.0 Volume Mean Corpuscular 27.2 L Hemoglobin Mean Corpuscular 31.7 L Hemoglobin Concent Red Cell 14.1 Distribution Width Platelet Count 338 # Mean Platelet Volume 9.7 Immature 0.500 H Granulocytes % Neutrophils % 58.6 Lymphocytes % 24.9 Monocytes % 10.0 Eosinophils % 5.4 Basophils % 0.6 Nucleated Red Blood 0.0 Cells % Immature 0.030 Granulocytes # Neutrophils # 3.8 Lymphocytes # 1.6 Monocytes # 0.7 Eosinophils # 0.4 Basophils # 0.0 Nucleated Red Blood 0.0 Cells # Sodium Level 141 Potassium Level 4.8 Chloride Level 101 Carbon Dioxide Level 29 Anion Gap 11 Blood Urea Nitrogen 29 H Creatinine 1.40 H Est Glomerular Filtrat Rate mL/min Glucose Level 126 # Calcium Level 8.8 Bedside Glucose 119 88 178 Test 04/10/19 21:17 04/11/19 03:01 Bedside Glucose 122 99 Subjective 24 Hr Interval Summary Free Text/Dictation nad afebrile Dr Shaw follows no events overnight Exam/Review of Systems Exam Vitals Vital Signs Date Temp Pulse Resp B/P (MAP) Pulse Ox O2 O2 Flow FiO2 Time Delivery Rate 04/11/19 98.8 71 18 122/59 95 01:49 (80) 04/09/19 Room Air 20:28 Intake and Output 04/10/19 04/10/19 04/11/19 1515:00 23:00 07:00 IntakeIntake Total 1060 ml 440 ml BalanceBalance 1060 ml 440 ml Results Results 24hrs Laboratory Tests Test 04/10/19 06:09 04/10/19 08:28 04/10/19 12:27 04/10/19 17:06 White Blood Count 6.5 # Red Blood Count 3.93 L Hemoglobin 10.7 L Hematocrit 33.8 L Mean Corpuscular 86.0 Volume Mean Corpuscular 27.2 L Hemoglobin Mean Corpuscular 31.7 L Hemoglobin Concent Red Cell 14.1 Distribution Width Platelet Count 338 # Mean Platelet Volume 9.7 Immature 0.500 H Granulocytes % Neutrophils % 58.6 Lymphocytes % 24.9 Monocytes % 10.0 Eosinophils % 5.4 Basophils % 0.6 Nucleated Red Blood 0.0 Cells % Immature 0.030 Granulocytes # Neutrophils # 3.8 Lymphocytes # 1.6 Monocytes # 0.7 Eosinophils # 0.4 Basophils # 0.0 Nucleated Red Blood 0.0 Cells # Sodium Level 141 Potassium Level 4.8 Chloride Level 101 Carbon Dioxide Level 29 Anion Gap 11 Blood Urea Nitrogen 29 H Creatinine 1.40 H Est Glomerular Filtrat Rate mL/min Glucose Level 126 # Calcium Level 8.8 Bedside Glucose 119 88 178 Test 04/10/19 21:17 04/11/19 03:01 Bedside Glucose 122 99 Medications Medication Current Medications Acetaminophen (Tylenol Tab) 650 mg Q4H PRN PO MILD PAIN(1-3)OR ELEVATED TEMP; Start 04/07/19 at 22:30 Acetaminophen/ Hydrocodone Bitart ([place] (5/325)) 1 tab Q4H PRN PO MODERATE PAIN LEVEL 4-6 Last administered on 04/09/19at 08:32; Admin Dose 1 TAB; Start 04/07/19 at 22:30 Diagnostic Test (Pha) (Accu-Chek) 1 ea 02 XX Last administered on 04/11/19at 02:56; Admin Dose 1 EA; Start 04/08/19 at 02:00 Insulin Glargine (Lantus) 50 units DAILY@2000 SC Last administered on 04/10/19at 21:19; Admin Dose 50 UNITS; Start 04/08/19 at 20:00 Miscellaneous Information 1 ea NOTE XX ; Start 04/07/19 at 23:00 Glucose (Glutose) 15 gm Q15M PRN PO DECREASED GLUCOSE; Start 04/07/19 at 23:00 Glucose (Glutose) 22.5 gm Q15M PRN PO DECREASED GLUCOSE; Start 04/07/19 at 23:00 Dextrose (D50w Syringe) 25 ml Q15M PRN IV DECREASED GLUCOSE; Start 04/07/19 at 23:00 Dextrose (D50w Syringe) 50 ml Q15M PRN IV DECREASED GLUCOSE; Start 04/07/19 at 23:00 Glucagon (Glucagen) 1 mg Q15M PRN IM DECREASED GLUCOSE; Start 04/07/19 at 23:00 Glucose (Glutose) 15 gm Q15M PRN BUCCAL DECREASED GLUCOSE; Start 04/07/19 at 23:00 Insulin Aspart (Novolog Insulin Pen) 24 unit WITH BREAKFAST SC Last administered on 04/10/19at 08:47; Admin Dose 24 UNIT; Start 04/08/19 at 08:00 Insulin Aspart (Novolog Insulin Pen) 24 unit WITH LUNCH SC Last administered on 04/10/19at 12:34; Admin Dose 24 UNIT; Start 04/08/19 at 12:00 Insulin Aspart (Novolog Insulin Pen) 20 unit WITH DINNER SC Last administered on 04/10/19at 17:12; Admin Dose 20 UNIT; Start 04/08/19 at 18:00 Amlodipine Besylate (Norvasc) 10 mg DAILY PO Last administered on 04/10/19at 08:45; Admin Dose 10 MG; Start 04/08/19 at 09:00 Aspirin (Halfprin) 81 mg DAILY PO Last administered on 04/10/19 08:44; Admin Dose 81 MG; Start 04/08/19 at 09:00 Atorvastatin Calcium (Lipitor) 20 mg HS PO Last administered on 04/10/19at 21:23; Admin Dose 20 MG; Start 04/08/19 at 21:00 Fenofibrate (Tricor) 145 mg DAILY PO Last administered on 04/10/19at 08:44; Admin Dose 145 MG; Start 04/08/19 at 09:00 Gabapentin (Neurontin) 300 mg BID PO Last administered on 04/10/19 21:20; Admin Dose 300 MG; Start 04/08/19 at 09:00 Hydralazine HCl (Apresoline) 50 mg TID PO Last administered on 04/10/19 21:23; Admin Dose 50 MG; Start 04/08/19 at 09:00 Levothyroxine Sodium (Synthroid) 50 mcg BEFORE BREAKFAST PO Last administered on 04/10/19 06:06; Admin Dose 50 MCG; Start 04/08/19 at 07:00 Losartan Potassium (Cozaar) 100 mg DAILY PO Last administered on 04/10/19 08:44; Admin Dose 100 MG; Start 04/08/19 at 09:00 Metformin HCl (Glucophage) 500 mg WITH BREAKFAST DINNE PO ; Start 04/08/19 at 18:00; Status Hold Metoprolol Tartrate (Lopressor) 25 mg BID PO Last administered on 04/10/19 21 :22; Admin Dose 25 MG; Start 04/08/19 at 09:00 Pantoprazole (Protonix Tab) 40 mg AC BREAKFAST PO Last administered on 04/10/19 06:06; Admin Dose 40 MG; Start 04/08/19 at 07:00 Diagnostic Test (Pha) (Accu-Chek) 1 ea AC MEALS AND BEDTIME XX Last administered on 04/10/19 21:23; Admin Dose 1 EA; Start 04/08/19 at 07:00 Furosemide (Lasix) 20 mg DAILY IV Last administered on 04/10/19 08:43; Admin Dose 20 MG; Start 04/09/19 at 09:00 Enoxaparin Sodium (Lovenox) 30 mg DAILY SC Last administered on 04/10/19 08:48; Admin Dose 30 MG; Start 04/09/19 at 09:00 Senna (Senokot) 1 tab BID PO Last administered on 04/10/19 08:44; Admin Dose 1 TAB; Start 04/08/19 at 22:00 LEILANI RODRIGEZ Apr 11, 2019 04:33
[2019-04-11] MEDS: LEVOTHYROXINE 50 MCG TAB PO SCH (07:10)
[2019-04-11] MEDS: PANTOPRAZOLE (EC) 40 MG TAB PO SCH (07:10)
[2019-04-11 07:55] VITALS: BP 146/65; PULSE 75; RESP 18
[2019-04-11] MEDS: INSULIN ASPART [NOVOLOG] 3 ML PEN SC SCH ×3 (08:20→18:00)
[2019-04-11] MEDS: ENOXAPARIN 30 MG/0.3 ML SYG SC SCH (08:20)
[2019-04-11] MEDS: FUROSEMIDE 20 MG INJ IV SCH (08:21)
[2019-04-11] MEDS: ASPIRIN (EC) 81 MG TAB PO SCH (08:21)
[2019-04-11] MEDS: METOPROLOL 25 MG TAB PO SCH ×2 (08:22→21:00)
[2019-04-11] MEDS: AMLODIPINE 10 MG TAB PO SCH (08:23)
[2019-04-11] MEDS: FENOFIBRATE 145 MG TAB PO SCH (08:23)
[2019-04-11] MEDS: SENNA TAB PO SCH ×2 (08:23→21:00)
[2019-04-11] MEDS: GABAPENTIN 300 MG CAP PO SCH ×2 (08:23→21:00)
[2019-04-11] MEDS: LOSARTAN 50 MG TAB PO SCH (08:23)
--- NOTE | 2019-04-11 13:18 | CONS ---
Assessment/Plan Assessment/Plan Hospital Course (Demo Recall) 83 YO ADMITTED WITH frontal intermittent headache for last couple of days. IMAGING SHOWED SCLEROTIC SKULL LESIONS ON CT HEAD, MRI BRAIN, SUSPICIOUS FOR MARROW INFILTRATIVE PROCESS -SPEP normal -I had ordered skeletal survey but will wait to perform -the nodule seen on CT chest was described as stable by Dr Gorman and therefore felt to be of benign etiology, will cancel lung biopsy -check CT AP for full staging: . Multiple small sclerotic lesions are seen in the L4 vertebral body, the bila teral iliacs, and the left posterior sacral ala, measuring up to about 10 mm in the left sacral ala. 3. Small sclerotic lesions seen in the anterior left fifth and anterior mid axillary left sixth ribs, and in the midaxillary right seventh rib, without significant slubber frame changer interval since CT examination of the chest dated 08/27/2014. 4. These findings are concerning for osseous metastatic deposits, and the remaining osseous structures are without evident osteoblastic or osteolytic lesions. 6. Hepatic cirrhosis again seen. 7. The gallbladder distended with mild pericholecystic fat inflammatory changes, and otherwise, there is no evident gallbladder wall thickening, gallstones, or pericholecystic fluid. -SPEP c/w inflammatory process at this point no obvious findings for myeloma on labs or obvious primary malignancy recommend PET scan and followup monitoring as out pt Consultation Date/Type/Reason Admit Date/Time Apr 08, 2019 at 16:54 Initial Consult Date Date/Time of Note DATE: 04/11/19 TIME: 13:17 24 HR Interval Summary Free Text/Dictation no complaints Exam/Review of Systems Exam Vitals Vital Signs Date Temp Pulse Resp B/P (MAP) Pulse Ox O2 O2 Flow FiO2 Time Delivery Rate 04/11/19 97.6 75 18 146/65 96 Room Air 07:55 (92) Intake and Output 04/10/19 04/10/19 04/11/19 1515:00 23:00 07:00 IntakeIntake Total 1060 ml 440 ml BalanceBalance 1060 ml 440 ml Constitutional: alert, oriented, well developed Psych: no complaints, nl mood/affect Cardiovascular: regular rate and rhythm, nl pulses Musculoskeletal: nl extremities to inspection, nl gait and stance Neurological: CAP INSPECTOR II-XII intact, nl mental status, nl speech, nl strength Results Result Diagram: 04/10/19 0609 04/11/19 0742 Results 24hrs Laboratory Tests Test 04/10/19 17:06 04/10/19 21:17 04/11/19 03:01 04/11/19 07:42 Bedside Glucose 178 122 99 Sodium Level 142 Potassium Level 4.6 Chloride Level 103 Carbon Dioxide Level 30 Anion Gap 9 Blood Urea Nitrogen 34 H Creatinine 1.50 H Est Glomerular Filtrat Rate mL/min Glucose Level 93 Calcium Level 8.8 Test 04/11/19 08:06 04/11/19 12:21 Bedside Glucose 99 185 Medications Medication Current Medications Acetaminophen (Tylenol Tab) 650 mg Q4H PRN PO MILD PAIN(1-3)OR ELEVATED TEMP; Start 04/07/19 at 22:30 Acetaminophen/ Hydrocodone Bitart ([place] (5/325)) 1 tab Q4H PRN PO MODERATE PAIN LEVEL 4-6 Last administered on 04/09/19at 08:32; Admin Dose 1 TAB; Start 04/07/19 at 22:30 Diagnostic Test (Pha) (Accu-Chek) 1 ea 02 XX Last administered on 04/11/19at 02:56; Admin Dose 1 EA; Start 04/08/19 at 02:00 Insulin Glargine (Lantus) 50 units DAILY@2000 SC Last administered on 04/10/19at 21:19; Admin Dose 50 UNITS; Start 04/08/19 at 20:00 Miscellaneous Information 1 ea NOTE XX ; Start 04/07/19 at 23:00 Glucose (Glutose) 15 gm Q15M PRN PO DECREASED GLUCOSE; Start 04/07/19 at 23:00 Glucose (Glutose) 22.5 gm Q15M PRN PO DECREASED GLUCOSE; Start 04/07/19 at 23:00 Dextrose (D50w Syringe) 25 ml Q15M PRN IV DECREASED GLUCOSE; Start 04/07/19 at 23:00 Dextrose (D50w Syringe) 50 ml Q15M PRN IV DECREASED GLUCOSE; Start 04/07/19 at 23:00 Glucagon (Glucagen) 1 mg Q15M PRN IM DECREASED GLUCOSE; Start 04/07/19 at 23:00 Glucose (Glutose) 15 gm Q15M PRN BUCCAL DECREASED GLUCOSE; Start 04/07/19 at 23:00 Insulin Aspart (Novolog Insulin Pen) 24 unit WITH BREAKFAST SC Last administered on 04/11/19 08:20; Admin Dose 24 UNIT; Start 04/08/19 at 08:00 Insulin Aspart (Novolog Insulin Pen) 24 unit WITH LUNCH SC Last administered on 04/11/19 12:30; Admin Dose 24 UNIT; Start 04/08/19 at 12:00 Insulin Aspart (Novolog Insulin Pen) 20 unit WITH DINNER SC Last administered on 04/10/19 17:12; Admin Dose 20 UNIT; Start 04/08/19 at 18:00 Amlodipine Besylate (Norvasc) 10 mg DAILY PO Last administered on 04/11/19 08:23; Admin Dose 10 MG; Start 04/08/19 at 09:00 Aspirin (Halfprin) 81 mg DAILY PO Last administered on 04/11/19 08:21; Admin Dose 81 MG; Start 04/08/19 at 09:00 Atorvastatin Calcium (Lipitor) 20 mg HS PO Last administered on 04/10/19 21:23; Admin Dose 20 MG; Start 04/08/19 at 21:00 Fenofibrate (Tricor) 145 mg DAILY PO Last administered on 04/11/19 08:23; Admin Dose 145 MG; Start 04/08/19 at 09:00 Gabapentin (Neurontin) 300 mg BID PO Last administered on 04/11/19 08:23; Admin Dose 300 MG; Start 04/08/19 at 09:00 Hydralazine HCl (Apresoline) 50 mg TID PO Last administered on 04/11/19 08:22; Admin Dose 50 MG; Start 04/08/19 at 09:00 Levothyroxine Sodium (Synthroid) 50 mcg BEFORE BREAKFAST PO Last administered on 04/11/19 07:10; Admin Dose 50 MCG; Start 04/08/19 at 07:00 Losartan Potassium (Cozaar) 100 mg DAILY PO Last administered on 04/11/19 08:23; Admin Dose 100 MG; Start 04/08/19 at 09:00 Metformin HCl (Glucophage) 500 mg WITH BREAKFAST DINNE PO ; Start 04/08/19 at 18:00; Status Hold Metoprolol Tartrate (Lopressor) 25 mg BID PO Last administered on 04/11/19 08:22; Admin Dose 25 MG; Start 04/08/19 at 09:00 Pantoprazole (Protonix Tab) 40 mg AC BREAKFAST PO Last administered on 04/11/19 07:10; Admin Dose 40 MG; Start 04/08/19 at 07:00 Diagnostic Test (Pha) (Accu-Chek) 1 ea AC MEALS AND BEDTIME XX Last administered on 04/10/19 21:23; Admin Dose 1 EA; Start 04/08/19 at 07:00 Furosemide (Lasix) 20 mg DAILY IV Last administered on 04/11/19 08:21; Admin Dose 20 MG; Start 04/09/19 at 09:00 Enoxaparin Sodium (Lovenox) 30 mg DAILY SC Last administered on 04/11/19 08:20; Admin Dose 30 MG; Start 04/09/19 at 09:00 Senna (Senokot) 1 tab BID PO Last administered on 04/11/19 08:23; Admin Dose 1 TAB; Start 04/08/19 at 22:00 FENG KURTZ Apr 11, 2019 13:18
[2019-04-11 14:00] VITALS: BP 125/60; PULSE 67; RESP 18
[2019-04-11 20:13] VITALS: BP 114/67; PULSE 77; RESP 18
[2019-04-11] MEDS: ATORVASTATIN 20 MG TAB PO SCH (21:00)
[2019-04-11] MEDS: INSULIN GLARGINE [LANTus] (100 UNITS/ML) SYG SC SCH (21:02)
[2019-04-12 02:00] VITALS: BP 119/59; PULSE 79; RESP 18
[2019-04-12] MEDS: ACCU-CHEK XX SCH ×4 (02:00→16:48)
[2019-04-12] MEDS ORDERED: INSULIN ASPART [NOVOLOG] 3 ML PEN SC SCH ×2 (08:00→12:00)
[2019-04-12] MEDS: PANTOPRAZOLE (EC) 40 MG TAB PO SCH (08:29)
[2019-04-12] MEDS: LEVOTHYROXINE 50 MCG TAB PO SCH (08:29)
[2019-04-12] MEDS: SENNA TAB PO SCH (08:33)
[2019-04-12] MEDS: GABAPENTIN 300 MG CAP PO SCH (08:33)
[2019-04-12] MEDS: METOPROLOL 25 MG TAB PO SCH (08:33)
[2019-04-12] MEDS: ASPIRIN (EC) 81 MG TAB PO SCH (08:33)
[2019-04-12] MEDS: FUROSEMIDE 20 MG INJ IV SCH (08:34)
[2019-04-12] MEDS: AMLODIPINE 10 MG TAB PO SCH (08:34)
[2019-04-12] MEDS: FENOFIBRATE 145 MG TAB PO SCH (08:34)
[2019-04-12] MEDS: LOSARTAN 50 MG TAB PO SCH (08:34)
[2019-04-12] MEDS: ENOXAPARIN 30 MG/0.3 ML SYG SC SCH (08:45)
[2019-04-12 08:46] VITALS: BP 142/62; PULSE 65
--- NOTE | 2019-04-12 11:33 | DS ---
Date/Time of Note Date/Time of Note DATE: 04/12/19 TIME: 11:33 Discharge Summary Admission/Discharge Info Admit Date/Time Apr 08, 2019 at 16:54 Discharge Date/Time Home Meds Active Scripts [Insulin Glargine] 100 UNITS/ML SOLN No Conflict Check, 58 UNITS SC DAILY@2000 for 30 Days Prov:LINDSEYANGELA 03/18/19 Metoprolol Tartrate* (Lopressor*) 25 Mg Tab, 25 MG PO BID for 30 Days, TAB Prov:ANGELA PORTILLO 03/18/19 Atorvastatin Calcium* (Atorvastatin Calcium*) 20 Mg Tab, 20 MG PO HS, #30 Prov:CATIE ROMERO MD 08/29/14 Aspirin* (Aspirin* EC) 81 Mg Tabec, 81 MG PO DAILY, #30 Prov:CATIE ROMERO MD 08/29/14 Reported Medications Pantoprazole* (Pantoprazole*) 40 Mg Tablet.dr, 40 MG PO AC BREAKFAST, TAB 04/07/19 Metformin Hcl* (Metformin Hcl*) 500 Mg Tablet, 500 MG PO WITH BREAKFAST DINNE, #30 TAB 04/07/19 Losartan Potassium* (Losartan Potassium*) 100 Mg Tablet, 100 MG PO DAILY, TAB 04/07/19 Levothyroxine Sodium* (Levothyroxine Sodium*) 50 Mcg Tablet, 50 MCG PO BEFORE BREAKFAST, #30 TAB 04/07/19 Hydralazine Hcl* (Hydralazine Hcl*) 50 Mg Tab, 50 MG PO TID, #90 TAB 04/07/19 Gabapentin (GABAPENTIN) 300 Mg/6 Ml Solution, 300 MG PO BID 04/07/19 Fenofibrate Nanocrystallized* (Fenofibrate*) 145 Mg Tablet, 145 MG PO DAILY, TAB 04/07/19 Furosemide* (Furosemide*) 20 Mg Tablet, 20 MG PO DAILY, #60 TAB 04/07/19 Insulin Aspart* (Novolog Insulin Pen*) 100 Unit/Ml Soln, 20 UNIT SC Dinner, EA 04/07/19 Insulin Aspart* (Novolog Insulin Pen*) 100 Unit/Ml Soln, 24 UNIT SC WITH BREAKFAST LUNCH, EA 04/07/19 Amlodipine Besylate* (Amlodipine Besylate*) 10 Mg Tablet, 10 MG PO DAILY, TAB 08/25/14 Discontinued Reported Medications Valsartan* (Diovan*) 320 Mg Tablet, 320 MG PO DAILY, TAB 08/25/14 Hydrochlorothiazide* (Hydrochlorothiazide*) 25 Mg Tab, 25 MG PO DAILY, TAB 08/25/14 Primary Care Provider Catie Romero MD Pending Labs Laboratory Tests Test 04/11/19 12:21 04/11/19 17:16 04/11/19 17:45 04/11/19 18:13 Bedside 185 65 121 149 Glucose mg/dL (70-220) mg/dL (70-220) mg/dL (70-220) mg/dL (70-220) Test 04/11/19 20:56 04/12/19 02:52 04/12/19 08:27 Bedside 170 146 125 Glucose mg/dL (70-220) mg/dL (70-220) mg/dL (70-220) LEILANI RODRIGEZ Apr 12, 2019 11:33
--- NOTE | 2019-04-12 11:34 | PDOCDIS ---
Discharge Instructions CONDITION [id number] Patient Condition: [id number] Stable ACTIVITY: [id number] Activity Restrictions: [id number] Slowly Increase Activity Rest between Activity Avoid heavy lifting Do not operate Machinery Do not operate Power Tool [id number] Bathing Restrictions: [id number] FOLLOW UP/APPOINTMENTS Follow-up Plan - FU with Primary x 1 week Call 911 or go to the nearst ER if symptoms get worse- LEILANI RODRIGEZ Apr 12, 2019 11:34
[2019-04-12 13:27] VITALS: BP 138/60; PULSE 66
[2019-04-12] MEDS: INSULIN ASPART [NOVOLOG] 3 ML PEN SC SCH (16:58)
[2019-04-12 17:58] VITALS: BP 140/62; PULSE 60
== END 2019-04-12 18:27 | disposition home or self-care (01) | DRG 103 ==
LOC: E/R 16:01 → 5EC 20:18 → OBSVTOIN 04-08 16:54
PROVIDERS: ADMIT Family Medicine; ATTEND Internal Medicine
DX: R51 Headache (principal); M89.9 Disorder of bone, unspecified; E78.5 Hyperlipidemia, unspecified; I10 Essential (primary) hypertension; E11.9 Type 2 diabetes mellitus without complications; Z79.4 Long term (current) use of insulin; Z79.82 Long term (current) use of aspirin; Z87.891 Personal history of nicotine dependence
CPT/HCPCS: 36415; 70450; 70551; 74177; 80048; 80053; 82378; 82784; 82962; 84155; 84165; 85025; 86320; 87081; 99217; G0378; J1650; J1815; J1940; J7030; Q9967

== ENCOUNTER 2019-08-28 13:40 | Emergency (ER) | payer MEDICARE, OTHER ==
[~2019-08-28] VITALS: Ht 147.3 cm; Wt 71.0 kg
[~2019-08-28 13:40] MED LIST changes: +FENO145T37 PO; +FURO20TA3 PO; +GABA300S PO; +HYDR-3672 PO; -HYDR25TA6 PO; +INSU100I27 SQ; +LEVO50TA7 PO; +LOSA100T15 PO; +METF500T24 PO; +PANT40TA4 PO; -VALS320T2 PO
[2019-08-28 13:43] VITALS: Ht 147.3 cm; Wt 71.0 kg
[2019-08-28] MEDS ORDERED: SOD CHLORIDE 0.9% 500 ML IV STA (15:27)
[2019-08-28] MEDS ORDERED: METOPROLOL 25 MG TAB PO ONE (17:00)
[2019-08-28] MEDS ORDERED: NICARDipine HCL 30 MG CAPSULE PO ONE (17:00)
[2019-08-28] MEDS ORDERED: INSULIN ASPART [NOVOLOG] 3 ML PEN SC ONE (17:00)
[2019-08-28 19:44] VITALS: BP 129/62; PULSE 76; RESP 16
== END 2019-08-28 19:46 | disposition home or self-care (01) ==
LOC: E/R 13:40
DX: R53.1 Weakness (principal); I10 Essential (primary) hypertension; E11.65 Type 2 diabetes mellitus with hyperglycemia; E03.9 Hypothyroidism, unspecified; Z79.4 Long term (current) use of insulin
CPT/HCPCS: 36415; 71045; 80048; 81003; 82962; 84484; 85025; 93005; 96372; 99285; J1815; J7040